=== PATIENT | male | born 1930 | race Caucasian/White ===

== ENCOUNTER → 2017-04-23 | Outpatient (CLI) | payer BC ==
[~2017-04-23] MED LIST: ADVIN50/60 INH; ALBUAER2 INH; CETI10TA10 PO; CLOP1TAB15 PO; CYAN10005 PO; DUTA1CAP3 PO; EPP3/2 IM; FLM4 PO; FRS/40 PO; MCR/50 PO; METR1GEL3 TOP; MONT1TAB3 PO; POTA10CA28 PO; PRED0.12 OPL; PRED10TA PO; RMNER16 PO; SODI5OIN4 OPR; TIOTCAP INH
== END | disposition home or self-care (01) ==
LOC: C.LAB1850 10:56
PROVIDERS: ATTEND Internal Medicine Pulmonary Disease
DX: J45.909 Unspecified asthma, uncomplicated (principal); J44.9 Chronic obstructive pulmonary disease, unspecified; R76.0 Raised antibody titer; R70.0 Elevated erythrocyte sedimentation rate

== ENCOUNTER → 2017-08-01 | Outpatient (CLI) | payer BC | END | disposition home or self-care (01) | LOC: C.LABFOXMH 08:42 | PROVIDERS: ATTEND Internal Medicine | DX: D47.2 Monoclonal gammopathy (principal) ==

== ENCOUNTER → 2017-09-16 | Outpatient (CLI) | payer BC ==
[~2017-09-16] MED LIST changes: -MCR/50 PO; +NITR50CA39 PO
== END | disposition home or self-care (01) ==
LOC: C.NEUR 10:19
PROVIDERS: ATTEND Internal Medicine
DX: R53.83 Other fatigue (principal); G47.10 Hypersomnia, unspecified; R06.83 Snoring

== ENCOUNTER → 2017-10-26 | Outpatient (CLI) | payer BC ==
[~2017-10-26] MED LIST changes: +CEFU1TAB35 PO; +DUTA0.5C PO; +DUTA1CAP17 PO; -DUTA1CAP3 PO; +ESCI1TAB6 PO; +METH-1305 PO; +ROPI0.25 PO; +SPRIN/30 INH; +VNTHFA/IN INH; +[UNRECOGNIZED DRUG - CODE] OPR
--- NOTE | 2017-10-27 05:03 | PAP/PSG TECHNICIAN REPORT ---
[facility] Form Builder Polysomnogram Report Study name: None Report date: 10/27/2017 Study date: 10/26/2017 Referring Physician: Jason Willis MD. Name: PUMA TODD Interpreting Physician: Tee Ventura M.D. Date of : 1930 Form Builder: RADHA Downey. Sex: Male Age: 87 StudyType: PSG Weight: 212 lbs Height: 87 years, Height 5' 9.5" Neck Circum: BMI: 30.85 Medications: METHENAMINE HIPPURATE 1GRAM, AVODART 0.5MG, LASIX 20MG, CYANOCOBALAMIN 1000MCG, ESCITALOPRAM 10MG, SPIRIVA 18MCG/ACT, MONTELUKAST SODIUM 10MG, CLOPIDOGREL 75MG, GALANTAMINE ER 16MG, ZYRTEC 10MG, ADVAIR DISK 500/50, POTASSIUM CL 10MEQ, SPIRIVA 18MCG/ACT, EPIPEN 0.3MG/0.3ML, VENTOLIN HFA 90MCG/ACT, ERI 128SOLUTION OPHTHALMIC Patient History Study started on room air with no ETCO2 monitoring in room #6. 87 yr old male here tonight for a diagnostic psg. He had a HST in August that was invalid. He has EDS and snoring. His and son stated that he has short term memory loss and gets confused. His ESS=12/21. His neck circ=16.25inches Parameters Monitored NPSG: E1-M2, E2-M1, Fp1-M2, Fp2-M1, F3-M2, F4-M2, F4-M1, C3-M2, C4-M2, C4-M1, O1-M2, O2-M2, O2-M1, T3-M2, T4-M1, P3-M2, P4-M1, CHIN1, CHIN2, HR, EKG, Legs, PFLOW, SNOR, FLOW, CFLOW, Tidal Volume, THOR, ABDO, SpO2, PLTH, CPRESS, ETCO2 Wave, ETCO2, pH Sleep Architecture Sleep Stages Time at Lights Off 9:55:54 PM STAGES Time (min.) TST (%) Time at Lights On 4:47:24 AM Wake 159.0 -- Total Recording Time (TRT) 411.50 min. N1 35.0 14 Total Sleep Period (TSP) 391.0 min. N2 207.0 82 Total Sleep Time (TST) 252.5min. N3 6.5 3 Awake Time 159.0 min. REM 4.0 2 Wake after Sleep Onset 152.5 min. Sleep Efficiency (SE) 61 % Sleep Onset Latency (JOSE) 6.5 min. Number of Stage 1 Shifts None Awakenings 39 Stage Changes 119 Number of REM periods 1 REM 4.0 2 REM Latency 387.0 min. NREM 248.5 98 Body Position Analysis Supine Right Left Side Prone Vertical Total Sleep Time (min.) 411.5 0.0 0.0 0.00 0.0 0.0 Total Sleep Time (%) 100% 0% 0% 0 0% N/A% Total Sleep Time REM (min.) 4.0 0.0 0.0 None 0.0 0.0 Total Sleep Time NREM (min.) 248.5 0.0 0.0 None 0.0 0.0 Intermittent Wake (min.) 159.0 0.0 0.0 None 0.0 0.0 Total Sleep Period (%) 100% None None None None None Arousals Myoclonus (PLM) * Events Count Index Events Count Index Spontaneous 14 3 Events Awake (PLMW) 326 123.0 Respiratory 2 1.2 Events Asleep w/ Arousal (PLMA) 17 4.0 PLM 13 4 Events Asleep w/o Arousal (PLMS) 625 148.5 Snoring 3 1 Total Asleep 642 152.6 Total 32 8 Total 968 141 Respiratory Analysis * CA OA MA CH H RERA Total Count 0 3 0 0 47 0 50 Index 0.0 0.7 0.0 0 11.2 0 11.9 Mean Duration 0.0 16.3 0.0 0.00 19.2 0.0 19.0 Longest Duration 0.0 19.9 0.0 0.00 0.0 0.0 40.2 Respiratory Event Summary Total Supine ~Supine Right Left Prone REM NREM Apneas Count 3 3 N/A N/A N/A N/A 0 3 Index 0.7 1 N/A N/A N/A N/A 0 1 Hypopneas (4% Desat) Count 47 47 N/A N/A N/A N/A 2 45 Index 11.2 11.2 N/A N/A N/A N/A 30.0 10.9 Apneas & All Hypopneas Count 50 50 N/A N/A N/A N/A 2 48 Index 11.9 12 N/A N/A N/A N/A 30.0 11.6 Respiratory Events (Stamping Mill Tender+All Hyp+RERA) Count 50 50 N/A N/A N/A N/A 2 48 Index 11.9 12 N/A N/A N/A N/A 30.0 11.6 Respiratory Related Arousal Count 2 50 N/A N/A N/A N/A 0 5 Index 1.2 1 N/A N/A N/A N/A 0 1 Snoring Analysis Supine Right Left Prone REM NREM Total Snore duration 5.6 min Snores count 231 N/A N/A N/A 2 229 231 Snore mean duration 1.4 Sec Snores index 55 N/A N/A N/A 30.0 55.3 54.9 TST with snoring (%) 2.2% Desaturation Event Summary: Minimum %SpO2 Event Count Mean/Min/Max Duration(sec.) Desaturation Index % Time In Bed > 90 49 28.6 / 9.0 / 59.3 65.6 11.4 86 - 90 103 25.7 / 0.0 / 58.0 19.2 81.5 81 - 85 2 10.1 / 5.8 / 14.5 4.3 7.2 76 - 80 0 N/A 0.0 0.0 71 - 75 0 N/A 0.0 0.0 66 - 70 0 N/A 0.0 0.0 61 - 65 0 N/A 0.0 0.0 56 - 60 0 N/A 0.0 0.0 51 - 55 0 N/A 0.0 0.0 < 50 0 N/A 0.0 0.0 Total REM NREM Awake <50% 0.0 min. 0.0 min. 0.0 min. 0.0 min. 51 - 60% 0.0 min. 0.0 min. 0.0 min. 0.0 min. 61 - 70% 0.0 min. 0.0 min. 0.0 min. 0.0 min. 71 - 80% 0.1 min. 0.0 min. 0.0 min. 0.1 min. 81 - 90% 349.5 min. 3.2 min. 240.0 min. 106.2 min. 91 - 100% 44.8 min. 0.8 min. 8.0 min. 36.1 min. Average 88 89 88 89 Minimum SpO2 75 82 82 75 Desaturation Event Index 16.8 60.0 19.1 12.8 # Desat. Events below 89% 107 4 77 26 Time(%) with Saturation below 89% 58.0 0.5 45.0 12.5 Time(min.) with Saturation below 89% 228.7 2.0 177.3 49.4 Time (mins) REM (mins) NREM (mins) % of TST SpO2 Below 90% 82 4 N78 87.6 SpO2 Below 88% 34 0 0 48 Heart Rate Analysis Min (bpm) Max (bpm) Average (bpm) Awake 35 127 67 NREM 38 93 66 REM 56 64 61 Overall 38 93 66 Supplemental O2 Values Minimum O2 level: None Value Start Time End Time Form Builder Comments slept in the left position. Cardiac arrhythmia and leg movements were noted, please see print outs. His legs seemed to move all night. No bruxism noted. Snoring was noted and scored as a 2 on a scale of 1 through 5. (0=no snoring, 5=snoring loud enough to be heard through a closed door or down the [address] way). He awoke to use the restroom once during the night. At that time he pulled most of the wires off his head and face and the study was ended at that time. He stated that he slept worse than when at home. The final report will be interpreted and signed by a sleep physician. The completed physician report will then be placed in the patient medical record. Therapy (cm H2O) 0 TIB (min.) 411.5 TST (min.) 252.5 Sleep Onset (min.) 6.5 REM Onset From Sleep (min.) 387.0 Sleep Efficiency % 61 Wakefulness (%) 39 Wakefulness (min.) 159.0 NREM 1 (%) 14 NREM 1 (min.) 35.0 NREM 2 (%) 82 NREM 2 (min.) 207.0 NREM 3 (%) 3 NREM 3 (min.) 6.5 REM (%) 2 REM (min.) 4.0 # Arousals 32 Arousal Index 8 # Snore 231 Snore Index 54.9 AHI 11.9 AHI Supine 12 AHI Non-Supine N/A NREM AHI 11.6 REM AHI 30.0 RDI 11.9 # Obstructive Apnea 3 # Central Apnea 0 # Mixed Apnea 0 # Hypopneas 47 RERAs 0 Total Respiratory Events 50 Time Below SpO2 89% (min.) 179.4 Mean NREM SpO2 (%) 88 Mean REM SpO2 (%) 89 Mean Sleep SpO2 (%) 88 Min NREM SpO2 (%) 82 Min REM SpO2 (%) 82 Position Supine (min.) 411.5 Position Non-supine (min.) 0.0 LM Index Sleep 152.6 LM Index NREM 153.6 LM Index REM 90.0 Mean Heart Rate (bpm) 66 Min Heart Rate (bpm) 38
--- NOTE | 2017-10-29 13:52 | POLYSOMNOGRAPH REPORT ---
CLINICAL DATA: A 87-year-old male with BMI of 30.[address] Willis for an in-lab sleep study. He had a home sleep apnea test which was technically invalid in August 2017. He does have excessive daytime sleepiness, snoring, confusion, and short-term memory loss. His [place] sleepiness score was elevated at 12/21. SLEEP ARCHITECTURE: Total sleep period was 391 minutes. Total sleep time was 252.5 minutes divided between 248.5 minutes of non-REM sleep and 4 minutes of REM sleep. Sleep onset latency was 6.5 minutes. REM latency was delayed at 387 minutes. Sleep efficiency was reduced at 61%. Wake after sleep onset was elevated at 152.5 minutes. Sleep consisted of stage N1 14%, stage N2 82%, stage N3 3%, and REM 2%. AROUSAL DATA: Thirty-two arousals were recorded for an index of 8 per hour. PLM DATA: Severely elevated limb movements during sleep were noted. There were 642 limb movements during sleep noted for an index of 152.6 per hour with an arousal index of 4 per hour. RESPIRATORY DATA: Mild sleep apnea was documented. The apnea/hypopnea index was 12. There were 3 obstructive apneic episodes. The longest duration of apnea was 20 seconds. There were 47 hypopneic episodes with a mean duration of 19.2 seconds. OXIMETRY DATA: Nocturnal hypoxemia was seen. Oxygen david was 82% during REM. The mean saturation was 88%. Time below 88% was 34 minutes. EKG: Heart rates ranged from 38-93 beats per minute. There were episodes of irregular heart rhythm seen, possibly atrial fibrillation intermittently. MIRROR INSPECTOR'S COMMENTS: The patient slept in the left position. He had leg movements almost the entire night. Snoring was mild, rated 2 on a scale of 1 through 5. The patient's sleep hypnogram showed very frequent awakenings through the night, not always correlated with respiratory events and almost continuous leg movements through the night. IMPRESSIONS: 1. Mild sleep apnea/hypopnea with an AHI of 12. 2. Nocturnal hypoxemia. 3. 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 4. Intermittent irregular rhythm, question atrial fibrillation. RECOMMENDATIONS: The patient may benefit from a repeat sleep study with CPAP and/or oxygen and possibly treatment of PLMD. MTDD
== END | disposition home or self-care (01) ==
LOC: C.NEUR 21:00
PROVIDERS: ATTEND Internal Medicine
DX: R06.83 Snoring (principal); G47.10 Hypersomnia, unspecified

== ENCOUNTER → 2017-12-07 | Outpatient (CLI) | payer BC ==
[~2017-12-07] MED LIST changes: -CEFU1TAB35 PO; -DUTA0.5C PO; -DUTA1CAP17 PO; +DUTA1CAP3 PO; -ESCI1TAB6 PO; -METH-1305 PO; -ROPI0.25 PO; -SPRIN/30 INH; -VNTHFA/IN INH; -[UNRECOGNIZED DRUG - CODE] OPR
--- NOTE | 2017-12-08 05:30 | PAP/PSG TECHNICIAN REPORT ---
[facility] Baker Doughnut Polysomnogram Report Study name: None Report date: 12/08/2017 Study date: 12/07/2017 Referring Physician: Jason Willis MD. Name: PUMA TODD Interpreting Physician: Tee Ventura M.D. Date of : 1930 Baker Doughnut: RADHA Downey. Sex: Male Age: 87 StudyType: PSG PAP Weight: 212 lbs Height: 87 years, Height 5' 9.5" Neck Circum: BMI: 30.85 Medications: Methenamine Hippurate 1gm, Avodart 0.5mg, Lasix 20mg, Cyanocobalamin 1000mcg, escitalopram 10mg, Spiriva 18 mcg/act, Montelukast Sodium 10mg, Clopidogrel 75mg, Galantamine Er 16mg, Zyrtec 10mg, Advair Disk 500/50, Potassium Chloride 10MEQ, Epipen 0.3mg/0.3ml, Ventolin HFA 90 mcg/act, Osman 128 Solution Ophthalmic Patient History Study started on room air with no 4 cwp of cpap in room #6. 87 yr old male here tonight for a new titration study. He had a diagnostic psg done here on 10/26/17 that had an AHI of 11.9 and showed PLMD. He stopped taking his PLMD medication 3 days ago because of an allergic reaction, according to his . His ESS=12/21. Neck circ=16.25inches. Parameters Monitored NPSG: E1-M2, E2-M1, Fp1-M2, Fp2-M1, F3-M2, F4-M2, F4-M1, C3-M2, C4-M2, C4-M1, O1-M2, O2-M2, O2-M1, T3-M2, T4-M1, P3-M2, P4-M1, CHIN1, CHIN2, HR, EKG, Legs, PFLOW, SNOR, FLOW, CFLOW, Tidal Volume, THOR, ABDO, SpO2, PLTH, CPRESS, ETCO2 Wave, ETCO2, pH Sleep Architecture Sleep Stages Time at Lights Off 9:49:34 PM STAGES Time (min.) TST (%) Time at Lights On 4:59:04 AM Wake 65.0 -- Total Recording Time (TRT) 431.00 min. N1 12.5 3 Total Sleep Period (TSP) 422.5 min. N2 200.5 55 Total Sleep Time (TST) 364.5min. N3 47.0 13 Awake Time 66.5 min. REM 104.5 29 Wake after Sleep Onset 58.0 min. Sleep Efficiency (SE) 85 % Sleep Onset Latency (JOSE) 7.0 min. Number of Stage 1 Shifts None Awakenings 18 Stage Changes 70 Number of REM periods 2 REM 104.5 29 REM Latency 84.5 min. NREM 260.0 71 Body Position Analysis Supine Right Left Side Prone Vertical Total Sleep Time (min.) 18.6 0.0 358.3 358.26 0.0 0.0 Total Sleep Time (%) 2% 0% 98% 98 0% N/A% Total Sleep Time REM (min.) 0.0 0.0 104.5 None 0.0 0.0 Total Sleep Time NREM (min.) 6.2 0.0 253.8 None 0.0 0.0 Intermittent Wake (min.) 12.3 0.0 52.7 None 0.0 0.0 Total Sleep Period (%) 4% None None None None None Arousals Myoclonus (PLM) * Events Count Index Events Count Index Spontaneous 7 1 Events Awake (PLMW) 95 87.7 Respiratory 7 1.2 Events Asleep w/ Arousal (PLMA) 13 2.1 PLM 13 2 Events Asleep w/o Arousal (PLMS) 435 71.6 Snoring 2 0 Total Asleep 448 73.7 Total 29 5 Total 543 76 Respiratory Analysis * CA OA MA CH H RERA Total Count 10 2 0 0 23 0 35 Index 1.6 0.3 0.0 0 3.8 0 5.8 Mean Duration 15.4 14.8 0.0 0.00 21.9 0.0 19.7 Longest Duration 22.6 15.7 0.0 0.00 0.0 0.0 33.6 Respiratory Event Summary Total Supine ~Supine Right Left Prone REM NREM Apneas Count 12 8 4 N/A 4 N/A 2 10 Index 2.0 77 1 N/A 0.7 N/A 1 2 Hypopneas (4% Desat) Count 23 2 21 N/A 21 N/A 0 23 Index 3.8 19.2 4 N/A 3.5 N/A 0.0 5.3 Apneas & All Hypopneas Count 35 10 25 N/A 25 N/A 2 33 Index 5.8 96 4 N/A 4 N/A 1.1 7.6 Respiratory Events (Behavioral Assistant+All Hyp+RERA) Count 35 10 25 N/A 25 N/A 2 33 Index 5.8 96 4 N/A 4.2 N/A 1.1 7.6 Respiratory Related Arousal Count 7 10 4 N/A 4 N/A 0 7 Index 1.2 29 1 N/A 1 N/A 0 2 Snoring Analysis Supine Right Left Prone REM NREM Total Snore duration 3.5 min Snores count 0 N/A 154 N/A 42 112 154 Snore mean duration 1.4 Sec Snores index 0 N/A 26 N/A 24.1 25.8 25.3 TST with snoring (%) 1.0% Desaturation Event Summary: Minimum %SpO2 Event Count Mean/Min/Max Duration(sec.) Desaturation Index % Time In Bed > 90 65 26.4 / 7.0 / 60.0 21.0 43.6 86 - 90 14 19.5 / 0.3 / 55.8 3.6 55.1 81 - 85 0 N/A 0.0 1.2 76 - 80 1 10.0 / 10.0 / 10.0 360.0 0.0 71 - 75 0 N/A 0.0 0.0 66 - 70 0 N/A 0.0 0.0 61 - 65 0 N/A 0.0 0.0 56 - 60 0 N/A 0.0 0.0 51 - 55 0 N/A 0.0 0.0 < 50 0 N/A 0.0 0.0 Total REM NREM Awake <50% 0.0 min. 0.0 min. 0.0 min. 0.0 min. 51 - 60% 0.0 min. 0.0 min. 0.0 min. 0.0 min. 61 - 70% 0.0 min. 0.0 min. 0.0 min. 0.0 min. 71 - 80% 0.2 min. 0.0 min. 0.0 min. 0.2 min. 81 - 90% 240.5 min. 79.3 min. 145.4 min. 15.8 min. 91 - 100% 186.0 min. 25.1 min. 114.0 min. 47.0 min. Average 90 89 90 92 Minimum SpO2 77 84 77 77 Desaturation Event Index 9.8 2.9 9.0 24.9 # Desat. Events below 89% 25 3 12 10 Time(%) with Saturation below 89% 13.9 6.9 6.1 0.9 Time(min.) with Saturation below 89% 59.4 29.6 26.0 3.8 Time (mins) REM (mins) NREM (mins) % of TST SpO2 Below 90% 34 4 N30 34.5 SpO2 Below 88% 6 0 0 6 Heart Rate Analysis Min (bpm) Max (bpm) Average (bpm) Awake 54 250 63 NREM 53 127 64 REM 56 80 68 Overall 53 127 65 Supplemental O2 Values Minimum O2 level: None Value Start Time End Time Baker Doughnut Comments Mr. Todd slept in the supine and left position. Cardiac arrhythmia and PLM's noted, please see print outs. No bruxism noted. CPAP was initiated at +4 CMH2O and up-titrated to a level of + 35TRA4S. A large Quattro Air full face mask by [employer] was used during titration. He did not use the restroom during the night. He stated that he slept a little worse than when at home. He did roll on his back during the study and had many central apneas. He did not have supine sleep in his previous study. An optimal pressure was not obtained. The final report will be interpreted and signed by a sleep physician. The completed physician report will then be placed in the patient medical record. Therapy Event: Therapy (cm H20) 0 4 5 6 7 8 9 10 Total Time at Pressure (min.) 0.4 45.8 107.7 80.7 113.2 45.0 18.6 18.1 TST at Pressure (min.) 0.0 35.3 105.7 73.7 108.2 15.2 9.4 17.1 # Periods 1 1 1 1 1 1 1 1 Sleep Onset (min.) N/A 6.6 0.0 0.0 0.0 0.0 0.6 0.0 REM Onset (min.) N/A N/A 45.2 0.0 N/A N/A N/A N/A Sleep Efficiency % 0 76 98 91 95 33 50 94 Wakefulness (%) 100.0 23.1 1.9 8.7 4.4 66.3 49.2 5.5 Wakefulness (min.) 0.4 10.6 2.0 7.0 5.0 29.9 9.1 1.0 NREM 1 (%) 0.0 4.4 1.9 0.0 0.9 5.6 13.0 14.3 NREM 1 (min.) 0.0 2.0 2.0 0.0 1.0 2.5 2.4 2.6 NREM 2 (%) 0.0 64.3 24.1 37.2 71.4 28.1 37.7 80.2 NREM 2 (min.) 0.0 29.5 26.0 30.0 80.8 12.7 7.0 14.5 NREM 3 (%) 0.0 8.2 14.6 1.4 23.3 0.0 0.0 0.0 NREM 3 (min.) 0.0 3.8 15.7 1.1 26.4 0.0 0.0 0.0 REM (%) 0.0 0.0 57.5 52.8 0.0 0.0 0.0 0.0 REM (min.) 0.0 0.0 61.9 42.6 0.0 0.0 0.0 0.0 # Arousals N/A 7 6 0 2 5 5 4 Arousal Index N/A 11.9 3.4 0.0 1.1 19.8 31.8 14.1 # Snore N/A 56 76 6 2 0 3 11 Snore Index N/A 95.3 43.2 4.9 1.1 0.0 19.1 38.6 AHI N/A 0.0 2.3 4.1 3.3 43.5 44.6 7.0 AHI Supine N/A N/A N/A N/A N/A 104.6 0.0 N/A AHI Non-Supine N/A 0.0 2.3 4.1 3.3 6.4 47.1 7.0 NREM AHI N/A 0.0 2.7 9.6 3.3 43.5 44.6 7.0 REM AHI N/A N/A 1.9 0.0 N/A N/A N/A N/A RDI N/A 0.0 2.3 4.1 3.3 43.5 44.6 7.0 # Obstructive N/A 0 2 0 0 0 0 0 # Central Ap N/A 0 0 0 0 9 1 0 # Mixed N/A 0 0 0 0 0 0 0 # Hypopneas N/A 0 2 5 6 2 6 2 RERAS N/A 0 0 0 0 0 0 0 Total Respiratory Events N/A 0 4 5 6 11 7 2 Time Below SpO2 89.00% (min.) 0.0 12.5 36.9 0.5 3.6 0.3 1.8 0.0 Mean NREM SpO2 (%) N/A 89 90 91 90 91 91 92 Mean REM SpO2 (%) N/A N/A 88 90 N/A N/A N/A N/A Mean Sleep SpO2 (%) N/A 89 89 91 90 91 91 92 Min NREM SpO2 (%) N/A 87 88 89 77 86 84 90 Min REM SpO2 (%) N/A N/A 84 86 N/A N/A N/A N/A Position Supine (min.) 0.0 0.0 0.0 0.0 0.0 5.7 0.5 0.0 Position Non-supine (min.) 0.0 35.3 105.7 73.7 108.2 9.4 8.9 17.1 LM Index Sleep N/A 28.9 17.6 7.3 166.9 7.9 210.2 193.2 LM Index NREM N/A 28.9 19.2 3.9 166.9 7.9 210.2 193.2 LM Index REM N/A N/A 16.5 9.9 N/A N/A N/A N/A Mean Heart Rate (bpm) N/A 67 69 65 64 59 57 55 Min Heart Rate (bpm) N/A 59 59 56 55 54 53 53
--- NOTE | 2017-12-09 19:11 | POLYSOMNOGRAPH REPORT ---
CLINICAL DATA: An 87-year-old male with BMI of 30.85, referred by Dr. Willis for a CPAP titration study. He had a diagnostic PSG in late 09/2017 which showed mild sleep apnea with an AHI of 11.9 with PLMD. He was put on medication for PLMD but stopped it several days ago because of an allergic reaction. His [place] Sleepiness score is 12/21. SLEEP ARCHITECTURE: Total sleep period was 422.5 minutes. Total sleep time was 364.5 minutes divided between 260 minutes of non-REM sleep and 104.5 minutes of REM sleep. Sleep latency was 7 minutes. REM latency was 84.5 minutes. Sleep efficiency was 85%. Wake after sleep onset was 58 minutes. Sleep consisted of stage N1 3%, stage N2 55%, stage N3 13% and REM 29%. AROUSAL DATA: 29 arousals recorded for an index of 5 per hour. PERIODIC LIMB MOVEMENT DATA: Severe PLMD was noted. There were 448 limb movements during sleep noted for an index of 73.7 per hour with arousal index of 2.1 per hour. RESPIRATORY DATA: The AHI was 5.8. There were 10 central and 2 obstructive apneic episodes. The longest duration of apnea was 22.6 seconds. There were 23 hypopneic episodes with mean duration of 21.9 seconds. OXIMETRY DATA: Nocturnal hypoxemia was seen. Oxygen david was 77%. Mean saturation was 90%. Time below 88% was 6 minutes. EKG: Heart rates ranged from 53-127 beats per minute. PACs and PVCs were noted. SYRUP FILTERER'S COMMENTS AND TREATMENT SUMMARY: The patient slept in supine and left positions. Frequent PLMs were noted. The patient used a large Quattro Air full facemask by [employer]. He was titrated up to his final pressure setting of 10 cm water pressure. At that setting, he slept for 17 minutes with an AHI of 7. He did roll on his back and had significant central apneic episode when that occurred.An optimal pressure was not totally obtained, although he was improved on 10 cm of water pressure CPAP. IMPRESSION: Obstructive sleep apnea, improved on CPAP 10 cm water pressure, with significant periodic limb movement disorder. RECOMMENDATIONS: The patient could be started on the above-noted treatment regimen and seen back in followup within 90 days to document efficacy and compliance. [facility]ITALMario
== END | disposition home or self-care (01) ==
LOC: C.NEUR 20:00
PROVIDERS: ATTEND Internal Medicine
DX: G47.30 Sleep apnea, unspecified (principal)

== ENCOUNTER → 2017-12-12 | Outpatient (CLI) | payer BC | END | disposition home or self-care (01) | LOC: C.LAB1850 11:20 | PROVIDERS: ATTEND Internal Medicine Pulmonary Disease | DX: R76.8 Other specified abnormal immunological findings in serum (principal) ==

== ENCOUNTER → 2017-12-19 | Outpatient (CLI) | payer BC | END | disposition home or self-care (01) | LOC: C.LABFOXMH 13:08 | PROVIDERS: ATTEND Internal Medicine | DX: N30.91 Cystitis, unspecified with hematuria (principal) ==

== ENCOUNTER → 2018-01-10 | Outpatient (CLI) | payer BC | LOC: C.LABFOXMH 10:36 | PROVIDERS: ATTEND Nurse Practitioner Family | DX: R35.0 Frequency of micturition (principal); N30.91 Cystitis, unspecified with hematuria ==

== ENCOUNTER 2018-05-04 15:30 | Inpatient (IN) | payer BC, OTHER ==
[~2018-05-04] VITALS: Ht 175.3 cm; Wt 97.4 kg
[~2018-05-04 15:30] MED LIST changes: +DUTA1CAP17 PO; -DUTA1CAP3 PO
[2018-05-04] MEDS ORDERED: SODIUM CHLORIDE 0.9% 1000ML 1,000 ML IV ONE (15:31)
[2018-05-04] MEDS ORDERED: ACETAMINOPHEN 500 MG TAB PO STA (15:33)
--- NOTE | 2018-05-04 15:47 | EMERGENCY ROOM VISIT NOTE ---
History Report prepared by Zo: Ivonne Salas Under the Supervision of: Dr. Matt Hi D.O. First contact with patient: 15:30 Stated Complaint: DIARRHEA/SLUGGISH / [place] History of Present Illness The patient is a 87 year old male who presents to the Emergency Room with complaints of generalized weakness beginning this morning. The patient had a large episode of diarrhea this morning. Per , after the episode of diarrhea , the patient slept for about 3 hours. She reports after he woke up the patient was fatigued and not as responsive as he typically is. The patient had a temperature of 100.4 degrees this afternoon. The patient was given Imodium but no Tylenol by his . The patient denies any abdominal pain. Per , the patient has not had any recent falls. The patient's denies any black or bloody stool. EMS reports the patient was hypotensive and was given one liter of fluids in route to the hospital. The patient lives at [facility] independent living with his . The patient has a history of dementia. Source of History: patient, spouse/significant other, EMS Onset: this morning Position: other (generalized) Quality: other (weakness) Timing: worsening Associated Symptoms: + diarrhea, + weakness Review of Systems See HPI for pertinent positives & negatives. A total of 10 systems reviewed and were otherwise negative. Past Medical & Surgical Medical Problems: (1) Allergic rhinitis (2) Asthma (3) Bilateral inguinal hernia repair (4) COPD (chronic obstructive pulmonary disease) (5) Duodenal ulcer (6) Gallstone (7) Gammopathy (8) Spinal stenosis of lumbar region (9) Tonsillectomy (10) Vasectomy Family History Diabetes mellitus Social History Smoking Status: Former Smoker Alcohol Use: occasionally Drug Use: none Marital Status: Housing Status: assisted living Occupation Status: retired Current/Historical Medications Scheduled Albuterol Hfa (Ventolin Hfa), 2-4 PUFFS INH Q6H Cetirizine Hcl (Zyrtec), 10 MG PO DAILY Clopidogrel (Plavix), 75 MG PO DAILY Cyanocobalamin (Vitamin B-12), 1,000 MCG PO DAILY Dutasteride (Avodart), 0.5 MG PO DAILY Epinephrine (Epipen), 0.3 MG IM UD Escitalopram Oxalate (Lexapro), 5 MG PO DAILY Fluticasone Prop/Salmeterol (Advair Diskus 500/50 60 Dose), 1 PUFF INH BID Furosemide (Lasix), 20 MG PO DAILY Galantamine Hydrobromide (Razadyne Ext Rel), 16 MG PO DAILY Methenamine Hippurate (Methenamine Hippurate), 1 GM PO DAILY Montelukast Sodium (Singulair), 10 MG PO DAILY Potassium Chloride (Micro-K Ext Rel), 10 MEQ PO DAILY Ropinirole (Requip), 0.25 MG PO HS Sodium Chloride Hypertonic (Sodium Chloride Opthalmic), 1 DROP OPR DAILY Tiotropium Crandall (Spiriva Handihaler), 1 CAP INH DAILY Allergies Coded Allergies: Hydroxyzine (Verified Allergy, Unknown, swelling, 05/04/18) Midazolam (Verified Allergy, Unknown, apneic, 05/04/18) Paroxetine (Verified Allergy, Unknown, unknown, 05/04/18) Sulfa Drugs (Verified Allergy, Unknown, UNKNOWN, 05/04/18) Lorazepam (Verified Adverse Reaction, Unknown, flushes, 05/04/18) Naproxen (Verified Adverse Reaction, Unknown, GI distress, 05/04/18) Physical Exam Vital Signs Date Time Temp Pulse Resp B/P (MAP) Pulse Ox O2 Delivery O2 Flow Rate FiO2 05/04/18 18:01 75 18 109/59 100 Nasal Cannula 4.0 05/04/18 17:50 76 20 115/66 100 Nasal Cannula 4.0 05/04/18 17:40 78 18 112/64 100 Nasal Cannula 4.0 05/04/18 17:30 75 20 108/67 100 Nasal Cannula 4.0 05/04/18 17:24 76 20 88/47 100 Nasal Cannula 4.0 05/04/18 17:10 37.3 76 20 89/46 99 Nasal Cannula 4.0 05/04/18 17:02 76 20 85/54 98 Nasal Cannula 4.0 05/04/18 16:40 75 24 62/50 100 Nasal Cannula 4.0 05/04/18 16:16 84 20 87/46 97 Nasal Cannula 4.0 05/04/18 16:00 84 22 96/48 93 Nasal Cannula 4.0 05/04/18 15:58 85 05/04/18 15:50 82 16 91/52 99 Room Air 05/04/18 15:45 100 Nasal Cannula 4.0 05/04/18 15:45 91 14 74/38 96 Nasal Cannula 4.0 05/04/18 15:39 85 18 79/44 100 Nasal Cannula 4.0 05/04/18 15:36 37.5 87 20 83/35 87 Room Air Physical Exam GENERAL: Patient is listless, slow to respond to questions but follows commands. EYES: The conjunctivae are clear. The pupils are round and reactive. EARS, NOSE, MOUTH AND THROAT: The nose is without any evidence of any deformity. Mucous membranes are dry tongue is midline NECK: The neck is nontender and supple. RESPIRATORY: Lung sounds diminished in left lung, mild tachypnea. CARDIOVASCULAR: Irregular rhythm noted to auscultation, no definite murmur. GASTROINTESTINAL: Moderately distended but soft no guarding or rigidity. MUSCULOSKELETAL/EXTREMITIES: There is no evidence of gross deformity full range of motion is noted in the hips and shoulders SKIN: There is no obvious evidence of any rash. There are no petechiae, pallor or cyanosis noted. Pedal edema bilaterally. NEUROLOGIC: Patient is awake alert and oriented to person, place, but not time. Strength is symmetric. Medical Decision & Procedures ER Provider Diagnostic Interpretation: Radiology results as stated below per my review and radiologist interpretation: CT SCAN OF THE ABDOMEN AND PELVIS WITHOUT CONTRAST CLINICAL HISTORY: diarrhea COMPARISON STUDY: December 2015 TECHNIQUE: CT scan of the abdomen and pelvis was performed from the lung bases to the proximal femurs. Images are reviewed in the axial, sagittal, and coronal planes. IV contrast was not administered for this examination. A dose lowering technique was utilized adhering to the principles of ALARA. CT DOSE: 824.09 mGy.cm FINDINGS: Lower chest: The heart is enlarged. There is basilar interstitial thickening with a subpleural predominance. Underlying interstitial lung disease is suspected. Liver: The unenhanced liver is normal in size, contour, and attenuation. There is no intrahepatic biliary ductal dilatation. Gallbladder: Cholelithiasis Spleen: Normal in size and attenuation. Pancreas: There is a dominant pancreatic atrophy. No masses are visualized. Adrenal glands: Unremarkable. Kidneys: There is bilateral perinephric stranding. There is persistent dilatation left renal pelvis and a pattern consistent with a chronic UPJ obstruction. No renal or ureteral calculi are visualized. Bowel: There are no transition zones indicate bowel obstruction. There is colonic diverticulosis. There are no acute peridiverticular inflammatory changes. The appendix is not visualized with certainty Peritoneum: There is no intraperitoneal free air or abdominal ascites. Vasculature: There is mild aneurysmal dilatation of the infrarenal abdominal aorta which measures 31 mm Adenopathy: None. Pelvic viscera: There is an indwelling Kirby catheter. There is bladder wall thickening. There is prostamegaly. There is a fat-containing left inguinal hernia. Skeletal structures: There are multilevel spondylitic changes. There is gas present within the left extradural space at the L3 level likely on a discogenic basis. There is multilevel spinal stenosis. IMPRESSION: 1. No evidence of bowel obstruction. No evidence of free air 2. Diverticulosis. No evidence of acute diverticulitis 3. Cholelithiasis 4. Chronic left UPJ obstruction 5. Prostamegaly with bladder wall thickening 6. Multilevel spondylitic changes within the spine 7. 31 mm infrarenal abdominal aortic aneurysm 8. Interstitial lung disease Electronically signed by: Brando Dugan M.D. CT HEAD WITHOUT CONTRAST (CT) CLINICAL HISTORY: confusion CHANGE IN MENTAL STATUS COMPARISON STUDY: MRI the brain performed February 2013 TECHNIQUE: Axial CT of the brain is performed from the vertex to the skull base. IV contrast was not administered for this examination. A dose lowering technique was utilized adhering to the principles of ALARA. CT DOSE: 614.27 mGy.cm FINDINGS: No intra or extra-axial mass lesions are visualized. There is no CT evidence of acute cortical infarction. There is no evidence of midline shift. There is no acute hemorrhage. No calvarial fractures are visualized. There are minor white matter hypodensities likely on a small vessel basis. There is no evidence of pathologic ventricular dilatation. There is mild maxillary and ethmoid sinus mucosal thickening. There is a stable subcutaneous nodule within the right occipital scalp measuring 2 cm. IMPRESSION: No acute intracranial findings Electronically signed by: Brando Dugan M.D. CHEST ONE VIEW PORTABLE CLINICAL HISTORY: Sepsis COMPARISON STUDY: 09/19/2016 FINDINGS: The heart is enlarged. There is mild elevation of the interstitium, likely secondary to mild congestive failure/fluid overload. A bilateral interstitial inflammatory process could appear similar There are no pleural effusions. There is no lobar consolidation.[ IMPRESSION: Cardiomegaly and elevation of the interstitium. While likely secondary to mild congestive failure, an interstitial inflammatory process could appear similar Electronically signed by: Brando Dugan M.D. Laboratory Results 05/04/18 15:50 Red Blood Count 4.08, Mean Corpuscular Volume 97.1, Mean Corpuscular Hemoglobin 31.6, Mean Corpuscular Hemoglobin Concent 32.6, Mean Platelet Volume 10.0, Neutrophils (%) (Auto) 95.2, Lymphocytes (%) (Auto) 2.9, Monocytes (%) (Auto) 1.0, Eosinophils (%) (Auto) 0.2, Basophils (%) (Auto) 0.2, Neutrophils # (Auto) 15.55, Lymphocytes # (Auto) 0.47, Monocytes # (Auto) 0.17, Eosinophils # (Auto) 0.04, Basophils # (Auto) 0.03 05/04/18 15:50 Test 05/04/18 15:50 05/04/18 15:51 05/04/18 16:01 05/04/18 16:10 White Blood Count 16.34 K/uL (4.8-10.8) Red Blood Count 4.08 M/uL (4.7-6.1) Hemoglobin 12.9 g/dL (14.0-18.0) Hematocrit 39.6 % (42-52) Mean Corpuscular Volume 97.1 fL (80-100) Mean Corpuscular Hemoglobin 31.6 pg (25-34) Mean Corpuscular Hemoglobin Concent 32.6 g/dl (32-36) Platelet Count 203 K/uL (130-400) Mean Platelet Volume 10.0 fL (7.4-10.4) Neutrophils (%) (Auto) 95.2 % Lymphocytes (%) (Auto) 2.9 % Monocytes (%) (Auto) 1.0 % Eosinophils (%) (Auto) 0.2 % Basophils (%) (Auto) 0.2 % Neutrophils # (Auto) 15.55 K/uL (1.4-6.5) Lymphocytes # (Auto) 0.47 K/uL (1.2-3.4) Monocytes # (Auto) 0.17 K/uL (0.11-0.59) Eosinophils # (Auto) 0.04 K/uL (0-0.5) Basophils # (Auto) 0.03 K/uL (0-0.2) RDW Standard Deviation 52.7 fL (36.4-46.3) RDW Coefficient of Variation 14.8 % (11.5-14.5) Immature Granulocyte % (Auto) 0.5 % Immature Granulocyte # (Auto) 0.08 K/uL (0.00-0.02) Erythrocyte Sedimentation Rate 39 mm/hr (0-14) Prothrombin Time 11.6 SECONDS (9.0-12.0) Prothromb Time International Ratio 1.1 (0.9-1.1) Activated Partial Thromboplast Time 25.3 SECONDS (21.0-31.0) Partial Thromboplastin Ratio 1.0 Anion Gap 10.0 mmol/L (3-11) Est Creatinine Clear Calc Drug Dose 34.9 ml/min Estimated GFR () 41.7 Estimated GFR (Non- 36.0 BUN/Creatinine Ratio 16.3 (10-20) Calcium Level 7.7 mg/dl (8.5-10.1) Phosphorus Level 2.3 mg/dl (2.5-4.9) Magnesium Level 1.6 mg/dl (1.8-2.4) Total Bilirubin 0.7 mg/dl (0.2-1) Aspartate Amino Transf (AST/SGOT) 15 U/L (15-37) Alanine Aminotransferase (ALT/SGPT) 16 U/L (12-78) Alkaline Phosphatase 67 U/L (45-117) Total Creatine Kinase 100 U/L (39-308) Creatine Kinase MB 1.2 ng/ml (0.5-3.6) Creatine Kinase MB Ratio 1.2 (0-3.0) Troponin I 0.369 ng/ml (0-0.045) C-Reactive Protein 2.44 mg/dl (0-0.29) Pro-B-Type Natriuretic Peptide 2487 pg/ml (0-1800) Total Protein 6.0 gm/dl (6.4-8.2) Albumin 2.4 gm/dl (3.4-5.0) Globulin 3.6 gm/dl (2.5-4.0) Albumin/Globulin Ratio 0.7 (0.9-2) Lipase 50 U/L (73-393) Bedside Glucose 78 mg/dl (70-99) Bedside Lactic Acid Venous 2.37 mmol/L (0.90-1.70) Urine Color YELLOW Urine Appearance CLOUDY (CLEAR) Urine pH 5.0 (4.5-7.5) Urine Specific [place] 1.012 (1.000-1.030) Urine Protein NEG (NEG) Urine Glucose (UA) NEG (NEG) Urine Ketones NEG (NEG) Urine Occult Blood 2+ (NEG) Urine Nitrite POS (NEG) Urine Bilirubin NEG (NEG) Urine Urobilinogen NEG (NEG) Urine Leukocyte Esterase LARGE (NEG) Urine WBC (Auto) >30 /hpf (0-5) Urine RBC (Auto) 0-4 /hpf (0-4) Urine Hyaline Casts (Auto) 1-5 /lpf (0-5) Urine Epithelial Cells (Auto) 0-5 /lpf (0-5) Urine Bacteria (Auto) 2+ (NEG) Test 05/04/18 16:47 Venous Blood pH 7.29 (7.36-7.41) Venous Blood Partial Pressure CO2 50 mmHg (38.0-50.0) Venous Blood Partial Pressure O2 35 mmHg Venous Blood HCO3 24 mmol/L Venous Blood Oxygen Saturation 61.7 % Venous Blood Base Excess -3.3 mEq/L Laboratory results per my review. Medications Administered Medications (Trade) Dose Ordered Sig/Bob Route Start Time Stop Time Status Last Admin Dose Admin Sodium Chloride 1,000 ml @ 999 mls/hr Q1H1M ONCE IV 05/04/18 15:31 05/04/18 16:31 DC 05/04/18 15:45 999 MLS/HR Acetaminophen (Tylenol Tab) 1,000 mg NOW STAT PO 05/04/18 15:33 05/04/18 15:34 DC 05/04/18 16:14 1,000 MG Levofloxacin (Levaquin / D5W) 750 mg NOW STAT IV 05/04/18 16:42 05/04/18 16:44 DC 05/04/18 16:50 750 MG Sodium Chloride 1,000 ml @ 999 mls/hr Q1H1M STAT IV 05/04/18 16:42 05/04/18 17:42 DC 05/04/18 16:59 999 MLS/HR Norepinephrine Bitartrate 8 mg/ Dextrose 508 ml @ 0 mls/hr Q0M STAT IV 05/04/18 16:42 05/04/18 16:44 DC 05/04/18 16:58 10.2 MLS/HR Magnesium Sulfate (Magnesium Sulfate 1gm / D5W) 2 gm NOW STAT IV 05/04/18 16:43 05/04/18 16:44 DC 05/04/18 16:52 2 GM Piperacillin Sod/ Tazobactam Sod (Zosyn Iv) 4.5 gm TODAY@1800 IV 05/04/18 18:00 05/14/18 17:59 05/04/18 17:45 4.5 GM Procedure Central Venous Catheter Indication: sepsis Catheter type: triple lumen Location: right femoral vein Verbal consent was obtained after the risks and benefits were explained, including but not limited to pneumothorax, hemothorax, vessel injury, bleeding, scarring, infection, pain, and bone/joint/nerve damage. At this time, the risks of the procedure are less than the risks of NOT performing the procedure. A time out was taken and the correct patient and site identified. The patient was placed in the supine position and the skin was prepped in the standard fashion with chlorhexidine and full sterile drapes applied. The proper landmarks were identified with ultrasound, anesthetized with 1% lidocaine without epinephrine, and the needle was inserted through the skin in the standard fashion. The needle was carefully advanced into blood vessel lumen under ultrasound guidance. The guidewire was placed uneventfully. The vessel is dilated and the catheter was placed. It was sutured into position. There was good blood return from all ports. The patient tolerated the procedure well and there were no complications. ECG Per My Interpretation Indication: weakness Rate (beats per minute): 84 Rhythm: normal sinus Findings: no ectopy, other (no actute ST segment, low voltage throughout) Comparison ECG Date: 01/02/16 Change: no significant change ED Course 1530: The patient was evaluated in room C12B. A complete history and physical examination were performed. 1531: Ordered NSS 1,000 ml @ 999 mls/hr IV. 1533: Ordered Acetaminophen 1000 mg PO. 1642: Ordered Norepinephrine Bitartrate 8 mg/Dextrose 508 ml @ 0 mls/hrs Protocol IV, NSS 1,000 ml @ 999 mls/hr IV, Levofloxacin 750 mg IV. 1643: Ordered Magnesium Sulfate 2 gm IV. 1644: I updated the patient and his on his test results. 1702: Central line was placed. See procedure note. The patient is agreeable to the treatment plan. 1717: I discussed the patient's case with Dr. Garcia. The patient will be evaluated for further management. 175: I discussed the patient's case with Dr. Purvis-Rack Maker. We reviewed the patient's case and he is available immediately if the patient's status decompensates. He recommends continued resuscitation for sepsis. 1800: Ordered Piperacillin Sod/Tazobactam Sod 4.5 gm/Dextrose 120 ml @ 200 mls/ hr IV. Medical Decision Differential diagnosis: Etiologies such as viral syndrome, otitis, pharyngitis, pneumonia, influenza, meningitis, urinary tract infection, sepsis, bacteremia, as well as others were entertained. Nursing notes reviewed. Additional history is obtained from the prehospital personnel. Additional history is obtained from the significant other. The patient is an 87-year-old male who presented to the emergency department for an evaluation of altered mental status and generalized weakness. The patient was found to have hypotension. The patient was treated initially with IV fluids. I do feel his underlying condition is consistent with sepsis from a urinary source. For this reason IV antibiotics were also given. I discussed patient's laboratory and radiographic studies with his significant other. I also discussed this case with the on-call [facility]ist. The patient had a central line placed for pressor treatment. I also discussed his case with the on-call slab miller operator. Patient was reevaluated multiple times. I discussed further treatment with the patient's significant other. Medication Reconcilliation Current Medication List: was personally reviewed by me Blood Pressure Screening Patient's blood pressure: Low blood pressure Consults Time Called: 1710 Consulting Physician: Dr. Garcia Returned Call: [phone] I discussed the patient's case with Dr. Garcia. The patient will be evaluated for further management. Additional Consults: Time Called: 1750 Consulted Physician: Dr. Purvis-Rack Maker Returned Call: 175 Additional Comments: I discussed the patient's case with Dr. Purvis-Rack Maker. We reviewed the patient's case and he is available immediately if the patient's status decompensates. He recommends continued resuscitation for sepsis. Impression Primary Impression: Sepsis Additional Impressions: UTI (urinary tract infection) Hypotension Altered mental status Critical Care I have personally spent greater than 45 minutes of critical care time in the direct management of this patient. This includes bedside care, interpretation of diagnostic studies, and testing, discussion with consultants, patient, and family members, and other required patient management activities. This 45 minutes is in excess of all separately billable procedures. Scribe Attestation The scribe's documentation has been prepared under my direction and personally reviewed by me in its entirety. I confirm that the note above accurately reflects all work, treatment, procedures, and medical decision making performed by me. Departure Information Dispostion Being Evaluated By Hospitalist Stewart Garner (PCP) Problem Qualifiers Primary Impression: Sepsis Sepsis type: sepsis due to unspecified organism Qualified Codes: A41.9 - Sepsis, unspecified organism Additional Impressions: UTI (urinary tract infection) Urinary tract infection type: site unspecified Hematuria presence: without hematuria Qualified Codes: N39.0 - Urinary tract infection, site not specified Hypotension Hypotension type: unspecified hypotension type Qualified Codes: I95.9 - Hypotension, unspecified Altered mental status Altered mental status type: unspecified Qualified Codes: R41.82 - Altered mental status, unspecified
--- NOTE | 2018-05-04 15:58 | DIAGNOSTIC IMAGING REPORT ---
CHEST ONE VIEW PORTABLE CLINICAL HISTORY: Sepsis COMPARISON STUDY: 09/19/2016 FINDINGS: The heart is enlarged. There is mild elevation of the interstitium, likely secondary to mild congestive failure/fluid overload. A bilateral interstitial inflammatory process could appear similar There are no pleural effusions. There is no lobar consolidation.[ IMPRESSION: Cardiomegaly and elevation of the interstitium. While likely secondary to mild congestive failure, an interstitial inflammatory process could appear similar Electronically signed by: Brando Dugan M.D. 05/04/2018 3:57 PM Dictated Date/Time: 05/04/2018 3:56 PM
[2018-05-04 16:18] LABS: HEMATOCRIT 39.6 % (42-52); HEMOGLOBIN 12.9 g/dL (14.0-18.0); MEAN CELL VOLUME 97.1 fL (80-100); MEAN CORPUSCULAR HEMOGLOBIN 31.6 pg (25-34); MEAN CORPUSCULAR HGB CONC 32.6 g/dl (32-36); PLATELET COUNT 203 K/uL (130-400); RED CELL DISTRIBUTION WIDTH CV 14.8 % (11.5-14.5); RED CELL DISTRIBUTION WIDTH SD 52.7 fL (36.4-46.3); WHITE BLOOD COUNT 16.34 K/uL (4.8-10.8)
[2018-05-04 16:32] LABS: INR 1.1 (0.9-1.1); PTT PATIENT 25.3 SECONDS (21.0-31.0)
--- NOTE | 2018-05-04 16:37 | DIAGNOSTIC IMAGING REPORT ---
CT HEAD WITHOUT CONTRAST (CT) CLINICAL HISTORY: confusion CHANGE IN MENTAL STATUS COMPARISON STUDY: MRI the brain performed February 2013 TECHNIQUE: Axial CT of the brain is performed from the vertex to the skull base. IV contrast was not administered for this examination. A dose lowering technique was utilized adhering to the principles of ALARA. CT DOSE: 614.27 mGy.cm FINDINGS: No intra or extra-axial mass lesions are visualized. There is no CT evidence of acute cortical infarction. There is no evidence of midline shift. There is no acute hemorrhage. No calvarial fractures are visualized. There are minor white matter hypodensities likely on a small vessel basis. There is no evidence of pathologic ventricular dilatation. There is mild maxillary and ethmoid sinus mucosal thickening. There is a stable subcutaneous nodule within the right occipital scalp measuring 2 cm. IMPRESSION: No acute intracranial findings Electronically signed by: Brando Dugan M.D. 05/04/2018 4:36 PM Dictated Date/Time: 05/04/2018 4:34 PM
[2018-05-04 16:38] LABS: BASO % 0.2 %; BASO ABS # 0.03 K/uL (0-0.2); EOS % 0.2 %; EOS ABS # 0.04 K/uL (0-0.5); IG# 0.08 K/uL (0.00-0.02); LYMPH % 2.9 %; LYMPH ABS # 0.47 K/uL (1.2-3.4); MONO ABS # 0.17 K/uL (0.11-0.59); NEUT % 95.2 %; NEUT ABS # 15.55 K/uL (1.4-6.5)
[2018-05-04 16:42] LABS: ALBUMIN 2.4 gm/dl (3.4-5.0); CALCIUM 7.7 mg/dl (8.5-10.1); CKMB 1.2 ng/ml (0.5-3.6); CREATININE 1.69 mg/dl (0.60-1.40); PHOSPHORUS 2.3 mg/dl (2.5-4.9); POTASSIUM 4.1 mmol/L (3.5-5.1)
[2018-05-04] MEDS ORDERED: SODIUM CHLORIDE 0.9% 1000ML 1,000 ML IV STA (16:42)
[2018-05-04] MEDS ORDERED: NOREPINEPHRINE BIT INJ 8 MG in DEXTROSE 5% 500ML 500 ML IV STA ×2 (16:42→19:28)
[2018-05-04] MEDS ORDERED: LEVAQUIN 750MG / 150ML D5W IV STA (16:42)
[2018-05-04] MEDS ORDERED: MAGNESIUM SULFATE 1GM / D5W 1 GM BAG IV STA (16:43)
--- NOTE | 2018-05-04 16:46 | DIAGNOSTIC IMAGING REPORT ---
CT SCAN OF THE ABDOMEN AND PELVIS WITHOUT CONTRAST CLINICAL HISTORY: diarrhea COMPARISON STUDY: December 2015 TECHNIQUE: CT scan of the abdomen and pelvis was performed from the lung bases to the proximal femurs. Images are reviewed in the axial, sagittal, and coronal planes. IV contrast was not administered for this examination. A dose lowering technique was utilized adhering to the principles of ALARA. CT DOSE: 824.09 mGy.cm FINDINGS: Lower chest: The heart is enlarged. There is basilar interstitial thickening with a subpleural predominance. Underlying interstitial lung disease is suspected. Liver: The unenhanced liver is normal in size, contour, and attenuation. There is no intrahepatic biliary ductal dilatation. Gallbladder: Cholelithiasis Spleen: Normal in size and attenuation. Pancreas: There is a dominant pancreatic atrophy. No masses are visualized. Adrenal glands: Unremarkable. Kidneys: There is bilateral perinephric stranding. There is persistent dilatation left renal pelvis and a pattern consistent with a chronic UPJ obstruction. No renal or ureteral calculi are visualized. Bowel: There are no transition zones indicate bowel obstruction. There is colonic diverticulosis. There are no acute peridiverticular inflammatory changes. The appendix is not visualized with certainty Peritoneum: There is no intraperitoneal free air or abdominal ascites. Vasculature: There is mild aneurysmal dilatation of the infrarenal abdominal aorta which measures 31 mm Adenopathy: None. Pelvic viscera: There is an indwelling Kirby catheter. There is bladder wall thickening. There is prostamegaly. There is a fat-containing left inguinal hernia. Skeletal structures: There are multilevel spondylitic changes. There is gas present within the left extradural space at the L3 level likely on a discogenic basis. There is multilevel spinal stenosis. IMPRESSION: 1. No evidence of bowel obstruction. No evidence of free air 2. Diverticulosis. No evidence of acute diverticulitis 3. Cholelithiasis 4. Chronic left UPJ obstruction 5. Prostamegaly with bladder wall thickening 6. Multilevel spondylitic changes within the spine 7. 31 mm infrarenal abdominal aortic aneurysm 8. Interstitial lung disease Electronically signed by: Brando Dugan M.D. 05/04/2018 4:45 PM Dictated Date/Time: 05/04/2018 4:37 PM
[2018-05-04] MEDS ORDERED: METH-1305 PO (17:07)
[2018-05-04] MEDS ORDERED: ROPI0.25 PO (17:07)
[2018-05-04] MEDS ORDERED: ESCI1TAB6 PO (17:07)
[2018-05-04] MEDS ORDERED: DUTA0.5C PO (17:07)
[2018-05-04] MEDS ORDERED: SPRIN/30 INH (17:08)
[2018-05-04] MEDS ORDERED: VNTHFA/IN INH (17:08)
[2018-05-04] MEDS ORDERED: [UNRECOGNIZED DRUG - CODE] OPR (17:08)
[2018-05-04] MEDS ORDERED: PIPERACILL/TAZOBAC IV 4.5 GM in DEXTROSE 5% 100ML 100 ML IV SCH (18:00)
[2018-05-04] MEDS ORDERED: PIPERACILLIN/TAZOBACTAM 4.5 GM/100ML D5W IV SCH (18:00)
[2018-05-04] MEDS ORDERED: ICU PROTOCOL FOR HYPERGLYCEMIA PRN ×2 (19:30→22:30)
--- NOTE | 2018-05-04 19:43 | History and Physical ---
History & Physical Date & Time of Service: May 04, 2018 at 19:42 Chief Complaint: Diarrhea/Sluggish / [place] Primary Care Physician: Jason Willis M.D. History of Present Illness Source: patient, family, spouse 87 yo male reports he awoke feeling lethargic and had multiple episodes of watery diarrhea, which began today. Patient denies any sick Contacts or change in recent diet. Patients states that he self caths and due to his dementia, he does not explain if he has new symptoms. As patient had sunjective fevers, worsening of fatigue and lethargy which started ths AM and has gradually worsened,. patient's spouse decided to bring patient to the ER. Patient was found to be hypotensive with systolic below 90. Patient did not respond to fluids and was placed on norepinephrine. Intensive care admission was called. Past Medical/Surgical History Medical Problems: (1) Allergic rhinitis (2) Asthma (3) Bilateral inguinal hernia repair (4) COPD (chronic obstructive pulmonary disease) (5) Dislodged Kirby catheter (6) Duodenal ulcer (7) Gallstone (8) Gammopathy (9) Laceration (10) Septic shock due to urinary tract infection (11) Spinal stenosis of lumbar region (12) Tonsillectomy (13) Urethral laceration (14) Urinary retention (15) Vasectomy Family History Diabetes mellitus Social History Smoking Status: Never Smoker Drug Use: none Marital Status: Occupational Status: retired Immunizations History of Influenza Vaccine: Yes Influenza Vaccine Date: Jul 28, 2012 History of Tetanus Vaccine?: Yes History of Pneumococcal: Yes Pneumococcal Date: Jan 01, 2011 History of Hepatitis B Vaccine: Yes Allergies Coded Allergies: Hydroxyzine (Verified Allergy, Unknown, swelling, 05/04/18) Midazolam (Verified Allergy, Unknown, apneic, 05/04/18) Paroxetine (Verified Allergy, Unknown, unknown, 05/04/18) Sulfa Antibiotics (Verified Allergy, Unknown, UNKNOWN, 05/04/18) Lorazepam (Verified Adverse Reaction, Unknown, flushes, 05/04/18) Naproxen (Verified Adverse Reaction, Unknown, GI distress, 05/04/18) Home Medications Scheduled Albuterol Hfa (Ventolin Hfa), 2-4 PUFFS INH Q6H Cetirizine Hcl (Zyrtec), 10 MG PO DAILY Clopidogrel (Plavix), 75 MG PO DAILY Cyanocobalamin (Vitamin B-12), 1,000 MCG PO DAILY Dutasteride (Avodart), 0.5 MG PO DAILY Epinephrine (Epipen), 0.3 MG IM UD Escitalopram Oxalate (Lexapro), 5 MG PO DAILY Fluticasone Prop/Salmeterol (Advair Diskus 500/50 60 Dose), 1 PUFF INH BID Furosemide (Lasix), 20 MG PO DAILY Galantamine Hydrobromide (Razadyne Ext Rel), 16 MG PO DAILY Methenamine Hippurate (Methenamine Hippurate), 1 GM PO DAILY Montelukast Sodium (Singulair), 10 MG PO DAILY Potassium Chloride (Micro-K Ext Rel), 10 MEQ PO DAILY Ropinirole (Requip), 0.25 MG PO HS Sodium Chloride Hypertonic (Sodium Chloride Opthalmic), 1 DROP OPR DAILY Tiotropium [place] (Spiriva Handihaler), 1 CAP INH DAILY Review of Systems Constitutional: + fever, + chills ENT: + hearing loss Respiratory: No cough Cardiovascular: No chest pain Abdomen: No pain Musculoskeletal: No joint pain Neurologic: + memory loss Psychiatric: No depression symptoms Endocrine: + fatigue Hematologic / Lymphatic: No abnormal bleeding/bruising Integumentary: No rash Allergic / Immunologic: No environmental allergies Physical Exam Vital Signs Date Time Temp Pulse Resp B/P (MAP) Pulse Ox O2 Delivery O2 Flow Rate FiO2 05/04/18 18:15 71 22 104/50 100 Nasal Cannula 3.0 05/04/18 18:01 75 18 109/59 100 Nasal Cannula 4.0 05/04/18 17:50 76 20 115/66 100 Nasal Cannula 4.0 05/04/18 17:40 78 18 112/64 100 Nasal Cannula 4.0 05/04/18 17:30 75 20 108/67 100 Nasal Cannula 4.0 05/04/18 17:24 76 20 88/47 100 Nasal Cannula 4.0 05/04/18 17:10 37.3 76 20 89/46 99 Nasal Cannula 4.0 05/04/18 17:02 76 20 85/54 98 Nasal Cannula 4.0 05/04/18 16:40 75 24 62/50 100 Nasal Cannula 4.0 05/04/18 16:16 84 20 87/46 97 Nasal Cannula 4.0 05/04/18 16:00 84 22 96/48 93 Nasal Cannula 4.0 05/04/18 15:58 85 05/04/18 15:50 82 16 91/52 99 Room Air 05/04/18 15:45 100 Nasal Cannula 4.0 05/04/18 15:45 91 14 74/38 96 Nasal Cannula 4.0 05/04/18 15:39 85 18 79/44 100 Nasal Cannula 4.0 05/04/18 15:36 37.5 87 20 83/35 87 Room Air General Appearance: WD/WN, no apparent distress, + pertinent finding (right groin femoral central line) Head: normocephalic Eyes: normal inspection ENT: normal ENT inspection Neck: supple, no adenopathy Respiratory/Chest: chest non-tender, lungs clear, normal breath sounds Cardiovascular: regular rate, rhythm, no edema Abdomen/GI: normal bowel sounds, non tender, soft Back: normal inspection Neurologic/Psych: alert, normal mood/affect Skin: normal color Lymphatic: no adenopathy Diagnostics Laboratory Results Results Past 24 Hours Test 05/04/18 15:50 05/04/18 15:51 05/04/18 16:01 05/04/18 16:10 Range/Units White Blood Count 16.34 4.8-10.8 K/uL Red Blood Count 4.08 4.7-6.1 M/uL Hemoglobin 12.9 14.0-18.0 g/dL Hematocrit 39.6 42-52 % Mean Corpuscular Volume 97.1 80-100 fL Mean Corpuscular Hemoglobin 31.6 25-34 pg Mean Corpuscular Hemoglobin Concent 32.6 32-36 g/dl Platelet Count 203 130-400 K/uL Mean Platelet Volume 10.0 7.4-10.4 fL Neutrophils (%) (Auto) 95.2 % Lymphocytes (%) (Auto) 2.9 % Monocytes (%) (Auto) 1.0 % Eosinophils (%) (Auto) 0.2 % Basophils (%) (Auto) 0.2 % Neutrophils # (Auto) 15.55 1.4-6.5 K/uL Lymphocytes # (Auto) 0.47 1.2-3.4 K/uL Monocytes # (Auto) 0.17 0.11-0.59 K/uL Eosinophils # (Auto) 0.04 0-0.5 K/uL Basophils # (Auto) 0.03 0-0.2 K/uL RDW Standard Deviation 52.7 36.4-46.3 fL RDW Coefficient of Variation 14.8 11.5-14.5 % Immature Granulocyte % (Auto) 0.5 % Immature Granulocyte # (Auto) 0.08 0.00-0.02 K/uL Erythrocyte Sedimentation Rate 39 0-14 mm/hr Prothrombin Time 11.6 9.0-12.0 SECONDS Prothromb Time International Ratio 1.1 0.9-1.1 Activated Partial Thromboplast Time 25.3 21.0-31.0 SECONDS Partial Thromboplastin Ratio 1.0 Sodium Level 140 136-145 mmol/L Potassium Level 4.1 3.5-5.1 mmol/L Chloride Level 106 98-107 mmol/L Carbon Dioxide Level 24 21-32 mmol/L Anion Gap 10.0 3-11 mmol/L Blood Urea Nitrogen 28 7-18 mg/dl Creatinine 1.69 0.60-1.40 mg/dl Est Creatinine Clear Calc Drug Dose 34.9 ml/min Estimated GFR () 41.7 Estimated GFR (Non- 36.0 BUN/Creatinine Ratio 16.3 10-20 Random Glucose 72 70-99 mg/dl Calcium Level 7.7 8.5-10.1 mg/dl Phosphorus Level 2.3 2.5-4.9 mg/dl Magnesium Level 1.6 1.8-2.4 mg/dl Total Bilirubin 0.7 0.2-1 mg/dl Aspartate Amino Transf (AST/SGOT) 15 15-37 U/L Alanine Aminotransferase (ALT/SGPT) 16 12-78 U/L Alkaline Phosphatase 67 45-117 U/L Total Creatine Kinase 100 39-308 U/L Creatine Kinase MB 1.2 0.5-3.6 ng/ml Creatine Kinase MB Ratio 1.2 0-3.0 Troponin I 0.369 0-0.045 ng/ml C-Reactive Protein 2.44 0-0.29 mg/dl Pro-B-Type Natriuretic Peptide 2487 0-1800 pg/ml Total Protein 6.0 6.4-8.2 gm/dl Albumin 2.4 3.4-5.0 gm/dl Globulin 3.6 2.5-4.0 gm/dl Albumin/Globulin Ratio 0.7 0.9-2 Lipase 50 73-393 U/L Bedside Glucose 78 70-99 mg/dl Bedside Lactic Acid Venous 2.37 0.90-1.70 mmol/L Urine Color YELLOW Urine Appearance CLOUDY CLEAR Urine pH 5.0 4.5-7.5 Urine Specific [place] 1.012 1.000-1.030 Urine Protein NEG NEG Urine Glucose (UA) NEG NEG Urine Ketones NEG NEG Urine Occult Blood 2+ NEG Urine Nitrite POS NEG Urine Bilirubin NEG NEG Urine Urobilinogen NEG NEG Urine Leukocyte Esterase LARGE NEG Urine WBC (Auto) >30 0-5 /hpf Urine RBC (Auto) 0-4 0-4 /hpf Urine Hyaline Casts (Auto) 1-5 0-5 /lpf Urine Epithelial Cells (Auto) 0-5 0-5 /lpf Urine Bacteria (Auto) 2+ NEG Test 05/04/18 16:47 05/04/18 19:26 Range/Units Venous Blood pH 7.29 7.36-7.41 Venous Blood Partial Pressure CO2 50 38.0-50.0 mmHg Venous Blood Partial Pressure O2 35 mmHg Venous Blood HCO3 24 mmol/L Venous Blood Oxygen Saturation 61.7 % Venous Blood Base Excess -3.3 mEq/L Microbiology Results 05/04/18 Blood Culture, Received Pending 05/04/18 Blood Culture, Received Pending 05/04/18 Urine Culture, Received Pending Diagnostic Radiology CHEST ONE VIEW PORTABLE CLINICAL HISTORY: Sepsis COMPARISON STUDY: 09/19/2016 FINDINGS: The heart is enlarged. There is mild elevation of the interstitium, likely secondary to mild congestive failure/fluid overload. A bilateral interstitial inflammatory process could appear similar There are no pleural effusions. There is no lobar consolidation.[ IMPRESSION: Cardiomegaly and elevation of the interstitium. While likely secondary to mild congestive failure, an interstitial inflammatory process could appear similar EKG Sinus rhythm with Premature supraventricular complexes Low voltage QRS Borderline ECG When compared with ECG of 02-JAN-2016 11:51, No significant change Impression Assessment and Plan Septic shock in an 87 yo male with likely urosepsis Source is likely urinary from self catheterization. Give critical condition, likely urosepsis. Patient is on zosyn. Patient is on norepinephrine as he did not respond to fluid resuscitation. MAP is above [address] on IVF to help decrease need of norepinephrine. will reorder lactic acid will consult with ICU D/W Dr. Purvis will admit to ICU Type 2 MT Likely from septic shock and demand ischemia will monitor trop. No need for heparinization COPD Will resume home meds Restless leg syndrome. will resume home meds Hypertension will hold home meds. Code Level 5 Spent 90 minutes on admission with 32 minutes on critical care time. Advanced Directives Existing Advance Directive: No Existing Living Will: No Existing Power of Paper Cone Machine Operator: No Resuscitation Status VTE Prophylaxis Will order VTE Prophylaxis: Yes Note Total Time: Critical Care 30 - 74 minutes
[2018-05-04 20:05] VITALS: BP 105/58; PULSE 70; TEMP 36.9; O2SAT 97; Ht 175.3 cm; Wt 97.4 kg
[2018-05-04] MEDS ORDERED: PIPERACILL/TAZOBAC CONSULT ACTIVE PRN (20:15)
[2018-05-04 21:00] VITALS: BP 119/58; PULSE 68; TEMP 36.9; O2SAT 97
[2018-05-04] MEDS: SODIUM CHLORIDE 0.9% 1000ML 1,000 ML IV SCH (21:03)
[2018-05-04] MEDS: NOREPINEPHRINE BIT INJ 8 MG in DEXTROSE 5% 500ML 500 ML IV PRN ×2 (21:07→22:24)
[2018-05-04 22:00] VITALS: BP 131/69; PULSE 68; O2SAT 95
[2018-05-04] MEDS ORDERED: HEPARIN SOD 5000 UNIT/0.5 ML CARP SQ SCH (22:00)
[2018-05-04] MEDS: ROPINIROLE HCL 0.25 MG TAB PO SCH (22:22)
[2018-05-04] MEDS ORDERED: MAGNESIUM SULFATE 1GM / D5W 100 ML IV STA (22:25)
[2018-05-04] MEDS ORDERED: THIAMINE HCL INJ 200 MG in SODIUM CHLORIDE 0.9% 50ML 50 ML IV STA (22:27)
[2018-05-04] MEDS: FLUTICASONE/SALMETEROL (ADVAIR) 500/50 INH 14 PUFF INH SCH (22:27)
[2018-05-04 23:00] VITALS: BP 85/36; PULSE 67; O2SAT 87
[2018-05-04] MEDS: PIPERACILL/TAZOBAC IV 4.5 GM in DEXTROSE 5% 100ML 100 ML IV SCH (23:09)
[2018-05-04] MEDS: ALBUTEROL HFA 8 GM INHALER INH SCH (23:12)
[2018-05-05] VITALS (50 sets, daily range): BP systolic 90–131; BP diastolic 43–77; PULSE 64–99; TEMP 36.8–37.3; O2SAT 76–98
[2018-05-05] MEDS: SODIUM CHLORIDE 0.9% 1000ML 1,000 ML IV SCH ×4 (03:23→22:30)
[2018-05-05 05:01] LABS: INR 1.3 (0.9-1.1); PTT PATIENT 33.8 SECONDS (21.0-31.0)
[2018-05-05 05:03] LABS: HEMATOCRIT 37.7 % (42-52); HEMOGLOBIN 12.4 g/dL (14.0-18.0); MEAN CELL VOLUME 95.9 fL (80-100); MEAN CORPUSCULAR HEMOGLOBIN 31.6 pg (25-34); MEAN CORPUSCULAR HGB CONC 32.9 g/dl (32-36); MEAN PLATELET VOLUME 10.2 fL (7.4-10.4); PLATELET COUNT 188 K/uL (130-400); RED CELL DISTRIBUTION WIDTH CV 14.9 % (11.5-14.5); RED CELL DISTRIBUTION WIDTH SD 52.3 fL (36.4-46.3); WHITE BLOOD COUNT 28.53 K/uL (4.8-10.8)
[2018-05-05 05:19] LABS: BASO % 0.2 %; BASO ABS # 0.05 K/uL (0-0.2); EOS % 0.6 %; EOS ABS # 0.18 K/uL (0-0.5); IG# 0.21 K/uL (0.00-0.02); LYMPH % 3.8 %; LYMPH ABS # 1.09 K/uL (1.2-3.4); MONO % 4.9 %; NEUT % 89.8 %
[2018-05-05 05:40] LABS: ALBUMIN 2.1 gm/dl (3.4-5.0); CALCIUM 7.1 mg/dl (8.5-10.1); CREATININE 1.84 mg/dl (0.60-1.40); PHOSPHORUS 3.2 mg/dl (2.5-4.9); POTASSIUM 4.2 mmol/L (3.5-5.1); TOTAL PROTEIN 5.8 gm/dl (6.4-8.2)
[2018-05-05] MEDS: ALBUTEROL HFA 8 GM INHALER INH SCH ×3 (06:00→18:12)
[2018-05-05] MEDS: NOREPINEPHRINE BIT INJ 8 MG in DEXTROSE 5% 500ML 500 ML IV PRN (06:32)
[2018-05-05] MEDS: HEPARIN SOD 5000 UNIT/0.5 ML CARP SQ SCH ×3 (06:35→21:30)
[2018-05-05] MEDS: PIPERACILL/TAZOBAC IV 4.5 GM in DEXTROSE 5% 100ML 100 ML IV SCH ×2 (07:38→15:40)
[2018-05-05] MEDS: FLUTICASONE/SALMETEROL (ADVAIR) 500/50 INH 14 PUFF INH SCH ×2 (07:44→21:29)
[2018-05-05] MEDS: SODIUM CHLORIDE 5% OP SOLN 15 ML BTL OPR SCH (07:44)
[2018-05-05] MEDS: TIOTROPIUM BROMIDE 5 PUFF/90 MCG INH INH SCH (07:44)
[2018-05-05] MEDS: CLOPIDOGREL BISULFATE 75 MG TAB PO SCH (07:45)
[2018-05-05] MEDS: POTASSIUM CHLORIDE 10 MEQ TABCR PO SCH (07:45)
[2018-05-05] MEDS: ESCITALOPRAM OXALATE 10 MG TAB PO SCH (07:45)
[2018-05-05] MEDS: MONTELUKAST SOD 10 MG TAB PO SCH (07:45)
[2018-05-05] MEDS: CYANOCOBALAMIN 500 MCG TAB (VIT B-12) PO SCH (07:46)
[2018-05-05] MEDS: CETIRIZINE HCL 10 MG TAB PO SCH (07:46)
[2018-05-05] MEDS: THIAMINE HCL INJ 200 MG in SODIUM CHLORIDE 0.9% 50ML 50 ML IV SCH (07:49)
[2018-05-05] MEDS: GALANTAMINE HYDROBROMIDE 8 MG CAPER PO SCH (09:16)
--- NOTE | 2018-05-05 09:23 | Urology Consultation ---
History General Date of Service: May 05, 2018. Chief Complaint: Left hydronephrosis and sepsis Primary Care Physician: Jason Willis M.D. Pt seen a urologist before?: Yes (Dr. 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 ED report mentions history of dementia. Patient states this morning that he does not know why he is here. Admitted to ICU for septic shock. Currently on norepinephrine. Rising white count 16.34 yesterday now 28.53 today. Creatinine today is 1.84, this is elevated from normal baseline value of 0.[address] scan shows left hydronephrosis, suspected chronic in nature as this was also visualized on CT scan from 2016. Patient denies any pain this morning. States that his abdomen is distended but denies nausea/vomiting. Kirby catheter in place draining clear yellow urine. Imaging Imaging: CT Laboratory Last 24 Hours Test 05/04/18 15:50 05/04/18 15:51 05/04/18 16:01 05/04/18 16:10 White Blood Count 16.34 K/uL Red Blood Count 4.08 M/uL Hemoglobin 12.9 g/dL Hematocrit 39.6 % Mean Corpuscular Volume 97.1 fL Mean Corpuscular Hemoglobin 31.6 pg Mean Corpuscular Hemoglobin Concent 32.6 g/dl Platelet Count 203 K/uL Mean Platelet Volume 10.0 fL Neutrophils (%) (Auto) 95.2 % Lymphocytes (%) (Auto) 2.9 % Monocytes (%) (Auto) 1.0 % Eosinophils (%) (Auto) 0.2 % Basophils (%) (Auto) 0.2 % Neutrophils # (Auto) 15.55 K/uL Lymphocytes # (Auto) 0.47 K/uL Monocytes # (Auto) 0.17 K/uL Eosinophils # (Auto) 0.04 K/uL Basophils # (Auto) 0.03 K/uL RDW Standard Deviation 52.7 fL RDW Coefficient of Variation 14.8 % Immature Granulocyte % (Auto) 0.5 % Immature Granulocyte # (Auto) 0.08 K/uL Erythrocyte Sedimentation Rate 39 mm/hr Prothrombin Time 11.6 SECONDS Prothromb Time International Ratio 1.1 Activated Partial Thromboplast Time 25.3 SECONDS Partial Thromboplastin Ratio 1.0 Sodium Level 140 mmol/L Potassium Level 4.1 mmol/L Chloride Level 106 mmol/L Carbon Dioxide Level 24 mmol/L Anion Gap 10.0 mmol/L Blood Urea Nitrogen 28 mg/dl Creatinine 1.69 mg/dl Est Creatinine Clear Calc Drug Dose 34.9 ml/min Estimated GFR () 41.7 Estimated GFR (Non- 36.0 BUN/Creatinine Ratio 16.3 Random Glucose 72 mg/dl Calcium Level 7.7 mg/dl Phosphorus Level 2.3 mg/dl Magnesium Level 1.6 mg/dl Total Bilirubin 0.7 mg/dl Aspartate Amino Transf (AST/SGOT) 15 U/L Alanine Aminotransferase (ALT/SGPT) 16 U/L Alkaline Phosphatase 67 U/L Total Creatine Kinase 100 U/L Creatine Kinase MB 1.2 ng/ml Creatine Kinase MB Ratio 1.2 Troponin I 0.369 ng/ml C-Reactive Protein 2.44 mg/dl Pro-B-Type Natriuretic Peptide 2487 pg/ml Total Protein 6.0 gm/dl Albumin 2.4 gm/dl Globulin 3.6 gm/dl Albumin/Globulin Ratio 0.7 Lipase 50 U/L Procalcitonin 64.19 ng/ml Bedside Glucose 78 mg/dl Bedside Lactic Acid Venous 2.37 mmol/L Urine Color YELLOW Urine Appearance CLOUDY Urine pH 5.0 Urine Specific [place] 1.012 Urine Protein NEG Urine Glucose (UA) NEG Urine Ketones NEG Urine Occult Blood 2+ Urine Nitrite POS Urine Bilirubin NEG Urine Urobilinogen NEG Urine Leukocyte Esterase LARGE Urine WBC (Auto) >30 /hpf Urine RBC (Auto) 0-4 /hpf Urine Hyaline Casts (Auto) 1-5 /lpf Urine Epithelial Cells (Auto) 0-5 /lpf Urine Bacteria (Auto) 2+ Test 05/04/18 16:47 05/04/18 19:50 05/05/18 00:50 05/05/18 04:31 Venous Blood pH 7.29 Venous Blood Partial Pressure CO2 50 mmHg Venous Blood Partial Pressure O2 35 mmHg Venous Blood HCO3 24 mmol/L Venous Blood Oxygen Saturation 61.7 % Venous Blood Base Excess -3.3 mEq/L Lactic Acid Level 2.8 mmol/L Bedside Glucose 90 mg/dl White Blood Count 28.53 K/uL Red Blood Count 3.93 M/uL Hemoglobin 12.4 g/dL Hematocrit 37.7 % Mean Corpuscular Volume 95.9 fL Mean Corpuscular Hemoglobin 31.6 pg Mean Corpuscular Hemoglobin Concent 32.9 g/dl Platelet Count 188 K/uL Mean Platelet Volume 10.2 fL Neutrophils (%) (Auto) 89.8 % Lymphocytes (%) (Auto) 3.8 % Monocytes (%) (Auto) 4.9 % Eosinophils (%) (Auto) 0.6 % Basophils (%) (Auto) 0.2 % Neutrophils # (Auto) 25.60 K/uL Lymphocytes # (Auto) 1.09 K/uL Monocytes # (Auto) 1.40 K/uL Eosinophils # (Auto) 0.18 K/uL Basophils # (Auto) 0.05 K/uL RDW Standard Deviation 52.3 fL RDW Coefficient of Variation 14.9 % Immature Granulocyte % (Auto) 0.7 % Immature Granulocyte # (Auto) 0.21 K/uL Echinocytes 1+ Prothrombin Time 13.7 SECONDS Prothromb Time International Ratio 1.3 Activated Partial Thromboplast Time 33.8 SECONDS Partial Thromboplastin Ratio 1.3 Sodium Level 140 mmol/L Potassium Level 4.2 mmol/L Chloride Level 108 mmol/L Carbon Dioxide Level 23 mmol/L Anion Gap 9.0 mmol/L Blood Urea Nitrogen 26 mg/dl Creatinine 1.84 mg/dl Est Creatinine Clear Calc Drug Dose 33.2 ml/min Estimated GFR () 37.6 Estimated GFR (Non- 32.5 BUN/Creatinine Ratio 14.2 Random Glucose 95 mg/dl Calcium Level 7.1 mg/dl Phosphorus Level 3.2 mg/dl Magnesium Level 2.0 mg/dl Total Bilirubin 1.1 mg/dl Direct Bilirubin 0.5 mg/dl Aspartate Amino Transf (AST/SGOT) 22 U/L Alanine Aminotransferase (ALT/SGPT) 17 U/L Alkaline Phosphatase 62 U/L Total Creatine Kinase 289 U/L Troponin I 0.334 ng/ml Total Protein 5.8 gm/dl Albumin 2.1 gm/dl Lipase 29 U/L Test 05/05/18 06:28 Bedside Glucose 85 mg/dl Problem List Medical Problems: (1) Altered mental status Status: Acute (2) Dislodged Kirby catheter Status: Acute (3) Hypotension Status: Acute (4) Sepsis Status: Acute (5) Urethral laceration Status: Acute (6) UTI (urinary tract infection) Status: Acute Past History asthma, BPH, COPD, urinary tract infection (with septic shock), other (allergic rhinitis; duodenal ulcer; gallstone; gammopathy; lumbar spinal stenosis; urethral laceration; urinary retention) Past Surgical History: tonsillectomy, vasectomy, other (bilateral inguinal hernia repair) Family History Diabetes mellitus Social History Hx Tobacco Use In Past Year?: No Smoking: non-smoker Drug use: none Marital status: Housing status: lives with significant other, assisted living Occupation status: retired Immunizations History of Influenza Vaccine: Yes Influenza Vaccine Date: Jul 28, 2012 History of Tetanus Vaccine?: Yes History of Pneumococcal: Yes Pneumococcal Date: Jan 01, 2011 History of Hepatitis B Vaccine: Yes History of MDRO No Allergies Coded Allergies: Hydroxyzine (Verified Allergy, Unknown, swelling, 05/04/18) Midazolam (Verified Allergy, Unknown, apneic, 05/04/18) Paroxetine (Verified Allergy, Unknown, unknown, 05/04/18) Sulfa Antibiotics (Verified Allergy, Unknown, UNKNOWN, 05/04/18) Lorazepam (Verified Adverse Reaction, Unknown, flushes, 05/04/18) Naproxen (Verified Adverse Reaction, Unknown, GI distress, 05/04/18) Medications Home Medications: Home Meds and Scripts Medications Dose Route/Sig Max Daily Dose Days Date Category Sodium Chloride Opthalmic (Sodium Chloride Hypertonic) 5 % Eri 1 Drop OPR DAILY 05/04/18 Reported Ventolin Hfa (Albuterol) 200 Puffs/67015 Mcg Aers 2-4 Puffs INH Q6H 05/04/18 Reported Spiriva Handihaler (Tiotropium [place]) 30 Puff/540 Mcg Aerp 1 Cap INH DAILY 05/04/18 Reported Lexapro (Escitalopram Oxalate) 5 Mg Tab 5 Mg PO DAILY 05/04/18 Reported Avodart (Dutasteride) 0.5 Mg Cap 0.5 Mg PO DAILY 05/04/18 Reported Methenamine Hippurate 1 Gm Tab 1 Gm PO DAILY 05/04/18 Reported Requip (Ropinirole HCl) 0.25 Mg Tab 0.25 Mg PO HS 05/04/18 Reported Epipen (Epinephrine) 0.3 Mg/0.3 Ml Inj 0.3 Mg IM UD 01/02/16 Reported Razadyne Ext Rel (Galantamine Hydrobromide) 16 Mg Cap 16 Mg PO DAILY 01/02/16 Reported Lasix (Furosemide) 40 Mg Tab 20 Mg PO DAILY 01/02/16 Reported Singulair (Montelukast Sodium) 10 Mg Tab 10 Mg PO DAILY 03/31/15 Reported Zyrtec (Cetirizine Hcl) 10 Mg Tab 10 Mg PO DAILY 03/31/15 Reported Advair Diskus 500/50 60 Dose (Fluticasone Prop/Salmeterol) 1 Ea Aerp 1 Puff INH BID 03/31/15 Reported Plavix (Clopidogrel Bisulfate) 75 Mg Tab 75 Mg PO DAILY 03/31/15 Reported Micro-K Ext Rel (Potassium Chloride) 10 Meq Capcr 10 Meq PO DAILY 03/31/15 Reported Vitamin B-12 (Cyanocobalamin) 1,000 Mcg Tab 1,000 Mcg PO DAILY 03/31/15 Reported Inpatient Medications: Current Inpatient Medications Medications (Trade) Dose Ordered Sig/Bob Route Start Time Stop Time Status Last Admin Dose Admin Sodium Chloride 1,000 ml @ 150 mls/hr Q6H40M IV 05/04/18 20:23 06/03/18 19:27 05/05/18 03:23 150 MLS/HR Piperacillin Sod/ Tazobactam Sod 4.5 gm/Dextrose 120 ml @ 30 mls/hr Q8H IV 05/05/18 00:00 05/15/18 00:00 05/05/18 07:38 30 MLS/HR Albuterol (Ventolin Hfa Inhaler) 2 puffs Q6 INH 05/05/18 00:00 06/04/18 00:00 05/04/18 23:12 2 PUFFS Cetirizine HCl (zyrTEC TAB) 10 mg DAILY PO 05/05/18 09:00 06/04/18 08:59 05/05/18 07:46 10 MG Clopidogrel Bisulfate (plAVix TAB) 75 mg DAILY PO 05/05/18 09:00 06/04/18 08:59 05/05/18 07:45 75 MG Cyanocobalamin (Vitamin B-12 Tab) 1,000 mcg DAILY PO 05/05/18 09:00 06/04/18 08:59 05/05/18 07:46 1,000 MCG Escitalopram Oxalate (Lexapro Tab) 5 mg DAILY PO 05/05/18 09:00 06/04/18 08:59 05/05/18 07:45 5 MG Salmeterol Xinafoate/ Fluticasone (Advair Diskus 500/50 Inh) 1 puff BID INH 05/04/18 21:00 06/03/18 20:59 05/05/18 07:44 1 PUFF Galantamine Hydrobromide (Razadyne Cap) 16 mg DAILY PO 05/05/18 09:00 06/04/18 08:59 Montelukast Sodium (Singulair Tab) 10 mg DAILY PO 05/05/18 09:00 06/04/18 08:59 05/05/18 07:45 10 MG Potassium Chloride (Klor-Con M10) 10 meq DAILY PO 05/05/18 09:00 06/04/18 08:59 05/05/18 07:45 10 MEQ Ropinirole HCl (Requip Tab) 0.25 mg HS PO 05/04/18 21:00 06/03/18 20:59 Sodium Chloride ([place] 128 Oph Soln) 1 drops DAILY OPR 05/05/18 09:00 06/04/18 08:59 05/05/18 07:44 1 DROPS Tiotropium [place] (Spiriva Handihaler Inhaler) 1 puff DAILY INH 05/05/18 09:00 06/04/18 08:59 05/05/18 07:44 1 PUFF Miscellaneous Information (Order Awaiting Action) 1 ea QS N/A 05/05/18 00:00 06/04/18 00:00 Norepinephrine Bitartrate 8 mg/ Dextrose 508 ml @ 0 mls/hr Q0M PRN IV 05/04/18 20:15 06/03/18 20:14 05/05/18 06:32 60.8 MLS/HR Miscellaneous Information (Consult) 1 ea UD PRN N/A 05/04/18 20:15 06/03/18 20:14 Thiamine HCl 200 mg/Sodium Chloride 52 ml @ 208 mls/hr QAM IV 05/05/18 09:00 06/04/18 08:59 05/05/18 07:49 208 MLS/HR Heparin Sodium (Porcine) (Heparin Sq 5000 Unit/0.5ml) 5,000 unit Q8 SQ 05/05/18 06:00 06/04/18 05:59 05/05/18 06:35 5,000 UNIT Miscellaneous Information (Icu Protocol For Hyperglycemia) 1 ea PRN PRN N/A 05/04/18 22:30 05/06/18 22:29 Heparin Sodium (Porcine) (Heparin 10 Unit/ ml 5 ml Flush) 5 ml PRN PRN FLUSH 05/05/18 01:00 06/04/18 00:59 Review of Systems Review of Systems Constitutional: No fever Eyes: No double vision Neurological: No dizzy, No numbness/tingling Gastrointestinal: + problem reported (abdominal distention), No abdominal pain , No nausea, No vomiting Cardiovascular: No chest pain Respiratory: No shortness of breath Skin: No rash Musculoskeletal: No back pain Psychologic / Mental: + trouble remembering Male : No urinary retention, No blood in urine Physical Exam Vital Signs: Vital Signs Past 12 Hours Date Time Temp Pulse Resp B/P (MAP) Pulse Ox O2 Delivery O2 Flow Rate FiO2 05/05/18 08:00 36.8 72 18 123/52 (75) 98 Nasal Cannula 2.0 05/05/18 08:00 66 20 123/52 (90) 97 05/05/18 07:45 66 18 111/55 (91) 97 05/05/18 07:30 70 18 115/64 (75) 84 05/05/18 07:15 68 21 100/56 (80) 97 05/05/18 07:00 64 18 101/58 (76) 96 05/05/18 06:00 67 20 114/47 (69) 95 Nasal Cannula 2.0 05/05/18 06:00 67 20 05/05/18 05:00 70 18 102/58 (73) 96 Nasal Cannula 2.0 05/05/18 05:00 70 18 96 05/05/18 04:00 36.9 69 22 110/43 (65) 96 Nasal Cannula 2.0 05/05/18 04:00 69 22 96 05/05/18 03:00 70 17 98 05/05/18 03:00 70 17 113/50 (71) 98 Nasal Cannula 2.0 05/05/18 02:00 70 19 98 05/05/18 02:00 70 19 123/64 (83) 98 2.0 05/05/18 01:00 69 18 111/50 (70) 97 Nasal Cannula 2.0 05/05/18 01:00 69 18 97 05/05/18 00:58 Nasal Cannula 2.0 05/05/18 00:01 37.0 75 17 115/45 (68) 98 Nasal Cannula 2.0 05/05/18 00:01 75 17 115/45 (78) 98 05/04/18 23:00 67 18 85/36 (52) 87 Nasal Cannula 2.0 05/04/18 23:00 67 18 87 05/04/18 22:00 68 20 131/69 (89) 95 Nasal Cannula 2.0 05/04/18 22:00 68 20 95 05/04/18 21:00 68 16 119/58 (76) 97 05/04/18 21:00 36.9 68 16 119/58 (78) 97 Nasal Cannula 2.0 Physical Exam: General Appearance: no apparent distress Eyes: bilateral eyes normal inspection ENT: hearing grossly normal Neck: no JVD Respiratory/Chest: no respiratory distress, no accessory muscle use Cardiovascular: no edema, no JVD Extremities: normal inspection Neurologic/Psychiatric: alert, normal mood/affect, oriented x 3 Skin: normal color Assessment & Plan Assessment & Plan Treatment Planned: cystoscopy w/ stent Left hydronephrosis with sepsis. Will coordinate OR procedure today for cystoscopy, left ureteral stent placement with Dr. Angulo. Risk and benefits of procedure discussed with patient. All questions answered. Patient agrees to the procedure at this time. Continue IV antibiotics pending culture sensitivities. Will need 14 days of therapy. Thanks for the consult, will continue to follow with primary service. ATTENDING NOTE 1. Left hydronephrosis 2. Sepsis 3. Pyelonephritis. Discussed at length with patient. Unsure if hydronephrosis is source of infection, however, drainage would improve if source. Discussed pyelonephritis and sepsis. Risks and benefits discussed at length. Will set up cytoscopy and left stent placement.
[2018-05-05] MEDS ORDERED: LIDOCAINE HCL 2% 2 ML VIAL (20MG/ML) ONE (09:44)
[2018-05-05] MEDS ORDERED: ONDANSETRON INJ 2 MG/ML 2 ML VIAL ONE (09:44)
[2018-05-05] MEDS ORDERED: FENTANYL CITRATE INJ 50 MCG/1 ML 2 ML VIAL ONE (09:44)
[2018-05-05] MEDS ORDERED: PROPOFOL IV EMULSION 10 MG/ML 20 ML VIAL ONE (09:44)
[2018-05-05] MEDS ORDERED: KETAMINE HCL INJ 50 MG/ML 10 ML VIAL ONE (09:52)
[2018-05-05] MEDS ORDERED: Cysto-Conray II 17.2% 250ML BOTTLE ONE (10:03)
--- NOTE | 2018-05-05 10:26 | Critical Care Progress Note ---
Critical Care Progress Note Date of Service May 05, 2018. Attending Dr. Jack Subjective The patient is more awake today, following commands, he denies any pain except for mild discomfort mainly in the left side of his flank. He denies any nausea or vomiting and no shortness of breath. Answering questions and following commands. No new symptoms and no events overnight. The patient admitted to the hospital with diagnosis of UTI and sepsis, started on IV fluid, he had a femoral line placed by the ED, and started on pressors to maintain his blood pressure. He received adequate hydration and currently he is on 150 mL of normal saline an hour. Objective His physical exam on 05/05/2018 showed no fever, vital signs remained stable with the presence of pressors. Heart examination S1-S2 regular rate and rhythm with distant breath sounds bilaterally. Abdomen is obese and soft bowel sounds are positive minimal tenderness mainly in the left flank. No edema. His labs were reviewed which showed elevated white count, BUN creatinine has been borderline. Assessment & Plan 1. Septic shock requiring pressors in addition to the IV fluid. 2. UTI with gram-negative jagjit. 3. Left hydronephrosis with stranding around the left kidney consistent with acute pyelonephritis. 4. History of COPD. 5. History of spinal stenosis. Plan: 1. Continue Zosyn. 2. Check the sensitivity of the gram-negative jagjit in the urine. 3. Consult urology, appreciate input of Dr. Angulo. Patient is going to the OR for ureteral stent. 4. Keep the patient n.p.o. 5. DVT prophylaxis. 6. Continue bronchodilators. 7. Wean norepinephrine to off. 8. Once the patient is off the pressors, will discontinue the femoral line. 9. Discussed with the staff on rounds and details, critical care time spent with the patient was 35 minutes. Data Medications: Current Inpatient Medications Medications (Trade) Dose Ordered Sig/Bob Route Start Time Stop Time Status Last Admin Dose Admin Sodium Chloride 1,000 ml @ 150 mls/hr Q6H40M IV 05/04/18 20:23 06/03/18 19:27 05/05/18 09:17 150 MLS/HR Piperacillin Sod/ Tazobactam Sod 4.5 gm/Dextrose 120 ml @ 30 mls/hr Q8H IV 05/05/18 00:00 05/15/18 00:00 05/05/18 07:38 30 MLS/HR Albuterol (Ventolin Hfa Inhaler) 2 puffs Q6 INH 05/05/18 00:00 06/04/18 00:00 05/04/18 23:12 2 PUFFS Cetirizine HCl (zyrTEC TAB) 10 mg DAILY PO 05/05/18 09:00 06/04/18 08:59 05/05/18 07:46 10 MG Clopidogrel Bisulfate (plAVix TAB) 75 mg DAILY PO 05/05/18 09:00 06/04/18 08:59 05/05/18 07:45 75 MG Cyanocobalamin (Vitamin B-12 Tab) 1,000 mcg DAILY PO 05/05/18 09:00 06/04/18 08:59 05/05/18 07:46 1,000 MCG Escitalopram Oxalate (Lexapro Tab) 5 mg DAILY PO 05/05/18 09:00 06/04/18 08:59 05/05/18 07:45 5 MG Salmeterol Xinafoate/ Fluticasone (Advair Diskus 500/50 Inh) 1 puff BID INH 05/04/18 21:00 06/03/18 20:59 05/05/18 07:44 1 PUFF Galantamine Hydrobromide (Razadyne Cap) 16 mg DAILY PO 05/05/18 09:00 06/04/18 08:59 05/05/18 09:16 16 MG Montelukast Sodium (Singulair Tab) 10 mg DAILY PO 05/05/18 09:00 06/04/18 08:59 05/05/18 07:45 10 MG Potassium Chloride (Klor-Con M10) 10 meq DAILY PO 05/05/18 09:00 06/04/18 08:59 05/05/18 07:45 10 MEQ Ropinirole HCl (Requip Tab) 0.25 mg HS PO 05/04/18 21:00 06/03/18 20:59 Sodium Chloride ([place] 128 Oph Soln) 1 drops DAILY OPR 05/05/18 09:00 06/04/18 08:59 05/05/18 07:44 1 DROPS Tiotropium [place] (Spiriva Handihaler Inhaler) 1 puff DAILY INH 05/05/18 09:00 06/04/18 08:59 05/05/18 07:44 1 PUFF Miscellaneous Information (Order Awaiting Action) 1 ea QS N/A 05/05/18 00:00 06/04/18 00:00 Norepinephrine Bitartrate 8 mg/ Dextrose 508 ml @ 0 mls/hr Q0M PRN IV 05/04/18 20:15 06/03/18 20:14 05/05/18 06:32 60.8 MLS/HR Miscellaneous Information (Consult) 1 ea UD PRN N/A 05/04/18 20:15 06/03/18 20:14 Thiamine HCl 200 mg/Sodium Chloride 52 ml @ 208 mls/hr QAM IV 05/05/18 09:00 06/04/18 08:59 05/05/18 07:49 208 MLS/HR Heparin Sodium (Porcine) (Heparin Sq 5000 Unit/0.5ml) 5,000 unit Q8 SQ 05/05/18 06:00 06/04/18 05:59 05/05/18 06:35 5,000 UNIT Miscellaneous Information (Icu Protocol For Hyperglycemia) 1 ea PRN PRN N/A 05/04/18 22:30 05/06/18 22:29 Heparin Sodium (Porcine) (Heparin 10 Unit/ ml 5 ml Flush) 5 ml PRN PRN FLUSH 05/05/18 01:00 06/04/18 00:59 Furosemide 40 mg/ Syringe 4 ml @ 4 mls/min BID17 IV 05/05/18 17:00 06/04/18 16:59 I & O: 24-Hour Column 05/06/18 08:00 Intake Total 395 ml Output Total 550 ml Balance -155 ml Vital Signs: Date Time Temp Pulse Resp B/P (MAP) Pulse Ox O2 Delivery O2 Flow Rate FiO2 05/05/18 10:00 36.9 70 18 131/61 (84) 96 Nasal Cannula 2.0 05/05/18 10:00 75 18 131/61 (88) 97 05/05/18 09:45 69 19 120/60 (74) 96 05/05/18 09:30 71 15 107/59 (80) 98 05/05/18 09:30 71 15 107/59 (80) 98 05/05/18 09:15 68 20 105/44 (75) 98 05/05/18 09:00 76 20 107/49 (78) 98 05/05/18 09:00 67 18 107/49 (68) 96 Nasal Cannula 2.0 05/05/18 08:45 66 10 97/68 (77) 95 05/05/18 08:31 77 14 113/54 (69) 97 05/05/18 08:30 70 18 122/43 (83) 92 05/05/18 08:16 70 18 122/43 (83) 92 05/05/18 08:15 70 18 122/43 (83) 92 05/05/18 08:01 66 20 123/52 (90) 97 05/05/18 08:00 Nasal Cannula 2.0 05/05/18 08:00 36.8 72 18 123/52 (75) 98 Nasal Cannula 2.0 05/05/18 08:00 66 20 123/52 (90) 97 05/05/18 07:45 66 18 111/55 (91) 97 05/05/18 07:30 70 18 115/64 (75) 84 05/05/18 07:15 68 21 100/56 (80) 97 05/05/18 07:00 64 18 101/58 (76) 96 05/05/18 06:00 67 20 114/47 (69) 95 Nasal Cannula 2.0 05/05/18 06:00 67 20 05/05/18 05:00 70 18 102/58 (73) 96 Nasal Cannula 2.0 05/05/18 05:00 70 18 96 05/05/18 04:00 36.9 69 22 110/43 (65) 96 Nasal Cannula 2.0 05/05/18 04:00 69 22 96 05/05/18 03:00 70 17 98 05/05/18 03:00 70 17 113/50 (71) 98 Nasal Cannula 2.0 05/05/18 02:00 70 19 98 05/05/18 02:00 70 19 123/64 (83) 98 2.0 05/05/18 01:00 69 18 111/50 (70) 97 Nasal Cannula 2.0 05/05/18 01:00 69 18 97 05/05/18 00:58 Nasal Cannula 2.0 05/05/18 00:01 37.0 75 17 115/45 (68) 98 Nasal Cannula 2.0 7/9/18 00:01 75 17 115/45 (78) 98 7/8/18 23:00 67 18 85/36 (52) 87 Nasal Cannula 2.0 7/8/18 23:00 67 18 87 7/8/18 22:00 68 20 131/69 (89) 95 Nasal Cannula 2.0 7/8/18 22:00 68 20 95 7/8/18 21:00 68 16 119/58 (76) 97 7/8/18 21:00 36.9 68 16 119/58 (78) 97 Nasal Cannula 2.0 7/8/18 20:05 36.9 70 18 105/58 97 Nasal Cannula 3.0 7/8/18 19:55 67 18 107/49 98 7/8/18 19:31 107/49 7/8/18 19:30 67 18 98 7/8/18 19:29 104/52 7/8/18 19:15 66 24 106/74 97 7/8/18 19:14 123/81 7/8/18 19:00 68 24 123/81 97 7/8/18 18:42 37.1 77 20 89/48 99 Nasal Cannula 3.0 7/8/18 18:15 71 22 104/50 100 Nasal Cannula 3.0 7/8/18 18:01 75 18 109/59 100 Nasal Cannula 4.0 7/8/18 17:50 76 20 115/66 100 Nasal Cannula 4.0 7/8/18 17:40 78 18 112/64 100 Nasal Cannula 4.0 7/8/18 17:30 75 20 108/67 100 Nasal Cannula 4.0 7/8/18 17:24 76 20 88/47 100 Nasal Cannula 4.0 7/8/18 17:10 37.3 76 20 89/46 99 Nasal Cannula 4.0 7/8/18 17:02 76 20 85/54 98 Nasal Cannula 4.0 7/8/18 16:40 75 24 62/50 100 Nasal Cannula 4.0 7/8/18 16:16 84 20 87/46 97 Nasal Cannula 4.0 7/8/18 16:00 84 22 96/48 93 Nasal Cannula 4.0 7/8/18 15:58 85 7/8/18 15:50 82 16 91/52 99 Room Air 18 15:45 100 Nasal Cannula 4.0 78/18 15:45 91 14 74/38 96 Nasal Cannula 4.0 05/04/18 15:39 85 18 79/44 100 Nasal Cannula 4.0 05/04/18 15:36 37.5 87 20 83/35 87 Room Air Laboratory Results: Last 24 Hours Test 05/04/18 15:50 05/04/18 15:51 05/04/18 16:01 05/04/18 16:10 White Blood Count 16.34 K/uL Red Blood Count 4.08 M/uL Hemoglobin 12.9 g/dL Hematocrit 39.6 % Mean Corpuscular Volume 97.1 fL Mean Corpuscular Hemoglobin 31.6 pg Mean Corpuscular Hemoglobin Concent 32.6 g/dl Platelet Count 203 K/uL Mean Platelet Volume 10.0 fL Neutrophils (%) (Auto) 95.2 % Lymphocytes (%) (Auto) 2.9 % Monocytes (%) (Auto) 1.0 % Eosinophils (%) (Auto) 0.2 % Basophils (%) (Auto) 0.2 % Neutrophils # (Auto) 15.55 K/uL Lymphocytes # (Auto) 0.47 K/uL Monocytes # (Auto) 0.17 K/uL Eosinophils # (Auto) 0.04 K/uL Basophils # (Auto) 0.03 K/uL RDW Standard Deviation 52.7 fL RDW Coefficient of Variation 14.8 % Immature Granulocyte % (Auto) 0.5 % Immature Granulocyte # (Auto) 0.08 K/uL Erythrocyte Sedimentation Rate 39 mm/hr Prothrombin Time 11.6 SECONDS Prothromb Time International Ratio 1.1 Activated Partial Thromboplast Time 25.3 SECONDS Partial Thromboplastin Ratio 1.0 Sodium Level 140 mmol/L Potassium Level 4.1 mmol/L Chloride Level 106 mmol/L Carbon Dioxide Level 24 mmol/L Anion Gap 10.0 mmol/L Blood Urea Nitrogen 28 mg/dl Creatinine 1.69 mg/dl Est Creatinine Clear Calc Drug Dose 34.9 ml/min Estimated GFR () 41.7 Estimated GFR (Non- 36.0 BUN/Creatinine Ratio 16.3 Random Glucose 72 mg/dl Calcium Level 7.7 mg/dl Phosphorus Level 2.3 mg/dl Magnesium Level 1.6 mg/dl Total Bilirubin 0.7 mg/dl Aspartate Amino Transf (AST/SGOT) 15 U/L Alanine Aminotransferase (ALT/SGPT) 16 U/L Alkaline Phosphatase 67 U/L Total Creatine Kinase 100 U/L Creatine Kinase MB 1.2 ng/ml Creatine Kinase MB Ratio 1.2 Troponin I 0.369 ng/ml C-Reactive Protein 2.44 mg/dl Pro-B-Type Natriuretic Peptide 2487 pg/ml Total Protein 6.0 gm/dl Albumin 2.4 gm/dl Globulin 3.6 gm/dl Albumin/Globulin Ratio 0.7 Lipase 50 U/L Procalcitonin 64.19 ng/ml Bedside Glucose 78 mg/dl Bedside Lactic Acid Venous 2.37 mmol/L Urine Color YELLOW Urine Appearance CLOUDY Urine pH 5.0 Urine Specific [place] 1.012 Urine Protein NEG Urine Glucose (UA) NEG Urine Ketones NEG Urine Occult Blood 2+ Urine Nitrite POS Urine Bilirubin NEG Urine Urobilinogen NEG Urine Leukocyte Esterase LARGE Urine WBC (Auto) >30 /hpf Urine RBC (Auto) 0-4 /hpf Urine Hyaline Casts (Auto) 1-5 /lpf Urine Epithelial Cells (Auto) 0-5 /lpf Urine Bacteria (Auto) 2+ Test 05/04/18 16:47 05/04/18 19:50 05/05/18 00:50 05/05/18 04:31 Venous Blood pH 7.29 Venous Blood Partial Pressure CO2 50 mmHg Venous Blood Partial Pressure O2 35 mmHg Venous Blood HCO3 24 mmol/L Venous Blood Oxygen Saturation 61.7 % Venous Blood Base Excess -3.3 mEq/L Lactic Acid Level 2.8 mmol/L Bedside Glucose 90 mg/dl White Blood Count 28.53 K/uL Red Blood Count 3.93 M/uL Hemoglobin 12.4 g/dL Hematocrit 37.7 % Mean Corpuscular Volume 95.9 fL Mean Corpuscular Hemoglobin 31.6 pg Mean Corpuscular Hemoglobin Concent 32.9 g/dl Platelet Count 188 K/uL Mean Platelet Volume 10.2 fL Neutrophils (%) (Auto) 89.8 % Lymphocytes (%) (Auto) 3.8 % Monocytes (%) (Auto) 4.9 % Eosinophils (%) (Auto) 0.6 % Basophils (%) (Auto) 0.2 % Neutrophils # (Auto) 25.60 K/uL Lymphocytes # (Auto) 1.09 K/uL Monocytes # (Auto) 1.40 K/uL Eosinophils # (Auto) 0.18 K/uL Basophils # (Auto) 0.05 K/uL RDW Standard Deviation 52.3 fL RDW Coefficient of Variation 14.9 % Immature Granulocyte % (Auto) 0.7 % Immature Granulocyte # (Auto) 0.21 K/uL Echinocytes 1+ Prothrombin Time 13.7 SECONDS Prothromb Time International Ratio 1.3 Activated Partial Thromboplast Time 33.8 SECONDS Partial Thromboplastin Ratio 1.3 Sodium Level 140 mmol/L Potassium Level 4.2 mmol/L Chloride Level 108 mmol/L Carbon Dioxide Level 23 mmol/L Anion Gap 9.0 mmol/L Blood Urea Nitrogen 26 mg/dl Creatinine 1.84 mg/dl Est Creatinine Clear Calc Drug Dose 33.2 ml/min Estimated GFR () 37.6 Estimated GFR (Non- 32.5 BUN/Creatinine Ratio 14.2 Random Glucose 95 mg/dl Calcium Level 7.1 mg/dl Phosphorus Level 3.2 mg/dl Magnesium Level 2.0 mg/dl Total Bilirubin 1.1 mg/dl Direct Bilirubin 0.5 mg/dl Aspartate Amino Transf (AST/SGOT) 22 U/L Alanine Aminotransferase (ALT/SGPT) 17 U/L Alkaline Phosphatase 62 U/L Total Creatine Kinase 289 U/L Troponin I 0.334 ng/ml Total Protein 5.8 gm/dl Albumin 2.1 gm/dl Lipase 29 U/L Test 05/05/18 06:28 Bedside Glucose 85 mg/dl
--- NOTE | 2018-05-05 10:56 | [facility] Operative Report ---
Operative Report Operative Date May 05, 2018. Pre-Operative Diagnosis Left Hydronephrosis, Sepsis Post-Operative Diagnosis Same Procedure(s) Performed Cystoscopy with left stent placement and retrograde pyelogram Surgeon Kev Estimated Blood Loss Minimal Findings Left hydronephrosis. Specimens 1. Urine Left kidney Drains 6 Fr Multilength Anesthesia Type MAC Complication(s) none Disposition Recovery Room / PACU Indications Risks and benefits discussed at length. WIll proceed. Description of Procedure Patient was consented and brought back to the operating room. Patient was placed under anesthesia in the supine position and moved to the dorsal lithotomy position. Patient was prepped and draped in the regular sterile fashion. A time out was completed. A 30degree Cystoscope was placed into the bladder and the entire bladder was examined. The UO's were identified. The left was cannulized with a catheter and a retrograde pyelogram was completed. A wire was then placed. With the wire in place, a 6 Fr Multilength Double J stent was placed. It was confirmed with fluoroscopy. With the stent in place, the bladder was filled and the scope was removed. An 20 Fr Coude catheter was placed with good drainage. The patient was cleaned, aroused from anesthesia, and transferred to the pacu in stable condition having tolerated the procedure well with no complications. I was present and participated in all aspects of the procedure. The patient will be monitored in the PACU until transferred. I attest to the content of the Intraoperative Record and any orders documented therein. Any exceptions are noted below.
--- NOTE | 2018-05-05 11:22 | Anesthesiology Progress Note ---
Anesthesia Post Op Note Date & Time May 05, 2018 at 11:22 Vital Signs Pain Intensity: 0.0 Vital Signs Past 12 Hours Date Time Temp Pulse Resp B/P (MAP) Pulse Ox O2 Delivery O2 Flow Rate FiO2 05/05/18 10:00 36.9 70 18 131/61 (84) 96 Nasal Cannula 2.0 05/05/18 10:00 75 18 131/61 (88) 97 05/05/18 09:45 69 19 120/60 (74) 96 05/05/18 09:30 71 15 107/59 (80) 98 05/05/18 09:30 71 15 107/59 (80) 98 05/05/18 09:15 68 20 105/44 (75) 98 05/05/18 09:00 76 20 107/49 (78) 98 05/05/18 09:00 67 18 107/49 (68) 96 Nasal Cannula 2.0 05/05/18 08:45 66 10 97/68 (77) 95 05/05/18 08:31 77 14 113/54 (69) 97 05/05/18 08:30 70 18 122/43 (83) 92 05/05/18 08:16 70 18 122/43 (83) 92 05/05/18 08:15 70 18 122/43 (83) 92 05/05/18 08:01 66 20 123/52 (90) 97 05/05/18 08:00 Nasal Cannula 2.0 05/05/18 08:00 36.8 72 18 123/52 (75) 98 Nasal Cannula 2.0 05/05/18 08:00 66 20 123/52 (90) 97 05/05/18 07:45 66 18 111/55 (91) 97 05/05/18 07:30 70 18 115/64 (75) 84 05/05/18 07:15 68 21 100/56 (80) 97 05/05/18 07:00 64 18 101/58 (76) 96 05/05/18 06:00 67 20 114/47 (69) 95 Nasal Cannula 2.0 05/05/18 06:00 67 20 05/05/18 05:00 70 18 102/58 (73) 96 Nasal Cannula 2.0 05/05/18 05:00 70 18 96 05/05/18 04:00 36.9 69 22 110/43 (65) 96 Nasal Cannula 2.0 05/05/18 04:00 69 22 96 05/05/18 03:00 70 17 98 05/05/18 03:00 70 17 113/50 (71) 98 Nasal Cannula 2.0 05/05/18 02:00 70 19 98 05/05/18 02:00 70 19 123/64 (83) 98 2.0 05/05/18 01:00 69 18 111/50 (70) 97 Nasal Cannula 2.0 05/05/18 01:00 69 18 97 05/05/18 00:58 Nasal Cannula 2.0 05/05/18 00:01 37.0 75 17 115/45 (68) 98 Nasal Cannula 2.0 05/05/18 00:01 75 17 115/45 (78) 98 Notes Mental Status: alert / awake / arousable, participated in evaluation Pt Amnestic to Procedure: Yes Nausea / Vomiting: adequately controlled Pain: adequately controlled Airway Patency, RR, SpO2: stable & adequate BP & HR: stable & adequate Hydration State: stable & adequate Anesthetic Complications: no major complications apparent
--- NOTE | 2018-05-05 12:27 | DIAGNOSTIC IMAGING REPORT ---
RETROGRADE INCLUDES KUB CLINICAL HISTORY: 87 years-old Male presenting with LT STENT FOR SEPSIS. TECHNIQUE: 4 fluoroscopic image(s) recorded as part of an intraoperative procedure. COMPARISON: None. FINDINGS/IMPRESSION: A catheter was introduced into the left ureter. Contrast evident in the renal pelvis. A guidewire was introduced into an upper pole calyx. Subsequently, a left ureteral stent was placed. Kirby catheter noted in the urinary bladder. Please see surgical report for further details. Dose area product (mGy.cm^2): 3335.2. Fluoroscopy time: 30.3 seconds. Number of fluoroscopic spot images: 0. Electronically signed by: Aníbal Harmon M.D. 05/05/2018 12:25 PM Dictated Date/Time: 05/05/2018 12:24 PM
--- NOTE | 2018-05-05 16:02 | Progress Note ---
Subjective Date of Service: May 05, 2018. Subjective Pt evaluation today including: conversation w/ patient, conversation w/ family (), physical exam, lab review, conversation w/ sr solutions consultant, review of inpatient medication list Pain: no pain PO Intake: NPO for surgery Voiding: morgan catheter in place patient reports feeling well, better than on admission he denies any pain discussed with urology, Dr. Angulo, planned for cystoscopy with stent had stent placed in left ureter, no complications discussed with Dr. Jack, appreciate his recommendations reviewed labs, Cr up to 1.84, WBC up to 28k Problem List Medical Problems: (1) Altered mental status Status: Acute (2) Dislodged Morgan catheter Status: Acute (3) Hypotension Status: Acute (4) Sepsis Status: Acute (5) Urethral laceration Status: Acute (6) UTI (urinary tract infection) Status: Acute Review of Systems Constitutional: + weakness, + fatigue Neurologic: + memory loss, + weakness All Other Systems: Reviewed and Negative Medications Current Inpatient Medications Medications (Trade) Dose Ordered Sig/Bob Route Start Time Stop Time Status Last Admin Dose Admin Sodium Chloride 1,000 ml @ 150 mls/hr [id number] IV 05/04/18 20:23 06/03/18 19:27 05/05/18 15:43 150 MLS/HR Piperacillin Sod/ Tazobactam Sod 4.5 gm/Dextrose 120 ml @ 30 mls/hr Q8H IV 05/05/18 00:00 05/15/18 00:00 05/05/18 15:40 30 MLS/HR Albuterol (Ventolin Hfa Inhaler) 2 puffs Q6 INH 05/05/18 00:00 06/04/18 00:00 05/05/18 12:14 2 PUFFS Cetirizine HCl (zyrTEC TAB) 10 mg DAILY PO 05/05/18 09:00 06/04/18 08:59 05/05/18 07:46 10 MG Clopidogrel Bisulfate (plAVix TAB) 75 mg DAILY PO 05/05/18 09:00 06/04/18 08:59 05/05/18 07:45 75 MG Cyanocobalamin (Vitamin B-12 Tab) 1,000 mcg DAILY PO 05/05/18 09:00 06/04/18 08:59 05/05/18 07:46 1,000 MCG Escitalopram Oxalate (Lexapro Tab) 5 mg DAILY PO 05/05/18 09:00 06/04/18 08:59 05/05/18 07:45 5 MG Salmeterol Xinafoate/ Fluticasone (Advair Diskus 500/50 Inh) 1 puff BID INH 05/04/18 21:00 06/03/18 20:59 05/05/18 07:44 1 PUFF Galantamine Hydrobromide (Razadyne Cap) 16 mg DAILY PO 05/05/18 09:00 06/04/18 08:59 05/05/18 09:16 16 MG Montelukast Sodium (Singulair Tab) 10 mg DAILY PO 05/05/18 09:00 06/04/18 08:59 05/05/18 07:45 10 MG Potassium Chloride (Klor-Con M10) 10 meq DAILY PO 05/05/18 09:00 06/04/18 08:59 05/05/18 07:45 10 MEQ Ropinirole HCl (Requip Tab) 0.25 mg HS PO 05/04/18 21:00 06/03/18 20:59 Sodium Chloride ([place] 128 Oph Soln) 1 drops DAILY OPR 05/05/18 09:00 06/04/18 08:59 05/05/18 07:44 1 DROPS Tiotropium [place] (Spiriva Handihaler Inhaler) 1 puff DAILY INH 05/05/18 09:00 06/04/18 08:59 05/05/18 07:44 1 PUFF Miscellaneous Information (Order Awaiting Action) 1 ea QS N/A 05/05/18 00:00 06/04/18 00:00 Norepinephrine Bitartrate 8 mg/ Dextrose 508 ml @ 0 mls/hr Q0M PRN IV 05/04/18 20:15 06/03/18 20:14 05/05/18 06:32 60.8 MLS/HR Miscellaneous Information (Consult) 1 ea UD PRN N/A 05/04/18 20:15 06/03/18 20:14 Thiamine HCl 200 mg/Sodium Chloride 52 ml @ 208 mls/hr QAM IV 05/05/18 09:00 06/04/18 08:59 05/05/18 07:49 208 MLS/HR Heparin Sodium (Porcine) (Heparin Sq 5000 Unit/0.5ml) 5,000 unit Q8 SQ 05/05/18 06:00 06/04/18 05:59 05/05/18 13:23 5,000 UNIT Miscellaneous Information (Icu Protocol For Hyperglycemia) 1 ea PRN PRN N/A 05/04/18 22:30 05/06/18 22:29 Heparin Sodium (Porcine) (Heparin 10 Unit/ ml 5 ml Flush) 5 ml PRN PRN FLUSH 05/05/18 01:00 06/04/18 00:59 Furosemide 40 mg/ Syringe 4 ml @ 4 mls/min BID17 IV 05/05/18 17:00 06/04/18 16:59 Objective Vital Signs Date Time Temp Pulse Resp B/P (MAP) Pulse Ox O2 Delivery O2 Flow Rate FiO2 05/05/18 15:00 79 18 98/43 (60) 95 05/05/18 14:45 82 16 102/54 (65) 90 05/05/18 14:30 75 20 110/48 (68) 95 Nasal Cannula 3.0 05/05/18 14:30 82 16 110/48 (67) 96 05/05/18 14:15 83 17 110/61 (67) 83 05/05/18 14:15 83 17 110/61 (77) 94 Nasal Cannula 3.0 05/05/18 14:00 68 16 104/48 (60) 96 05/05/18 14:00 67 22 104/48 (66) 92 Nasal Cannula 3.0 05/05/18 13:45 72 12 95/51 (53) 96 05/05/18 13:45 72 16 122/63 (82) 94 Nasal Cannula 3.0 05/05/18 13:30 70 18 115/50 (62) 97 05/05/18 13:15 84 18 122/68 (73) 95 05/05/18 13:00 69 16 110/57 (75) 95 05/05/18 13:00 72 18 110/66 (81) 96 Nasal Cannula 3.0 05/05/18 12:45 68 13 119/58 (78) 98 Nasal Cannula 3.0 05/05/18 12:45 68 13 119/58 (78) 98 05/05/18 12:30 68 18 126/51 (67) 96 05/05/18 12:30 68 18 126/51 (76) 96 Nasal Cannula 3.0 05/05/18 12:15 66 14 90/49 (65) 88 05/05/18 12:15 66 20 104/56 (72) 97 Nasal Cannula 3.0 05/05/18 12:00 36.9 68 18 96/44 (61) 95 Nasal Cannula 3.0 05/05/18 12:00 Nasal Cannula 3.0 05/05/18 12:00 84 16 96/44 (67) 76 05/05/18 11:45 69 15 105/58 (72) 93 05/05/18 11:30 71 18 110/56 (68) 91 05/05/18 11:25 71 18 104/52 (58) 90 05/05/18 11:10 36.9 71 16 113/47 (69) 92 Nasal Cannula 2.0 05/05/18 11:10 82 36 113/47 (77) 94 05/05/18 10:00 36.9 70 18 131/61 (84) 96 Nasal Cannula 2.0 05/05/18 10:00 75 18 131/61 (88) 97 05/05/18 09:45 69 19 120/60 (74) 96 05/05/18 09:30 71 15 107/59 (80) 98 05/05/18 09:30 71 15 107/59 (80) 98 05/05/18 09:15 68 20 105/44 (75) 98 05/05/18 09:00 76 20 107/49 (78) 98 05/05/18 09:00 67 18 107/49 (68) 96 Nasal Cannula 2.0 05/05/18 08:45 66 10 97/68 (77) 95 05/05/18 08:31 77 14 113/54 (69) 97 05/05/18 08:30 70 18 122/43 (83) 92 05/05/18 08:16 70 18 122/43 (83) 92 05/05/18 08:15 70 18 122/43 (83) 92 05/05/18 08:01 66 20 123/52 (90) 97 05/05/18 08:00 Nasal Cannula 2.0 05/05/18 08:00 36.8 72 18 123/52 (75) 98 Nasal Cannula 2.0 05/05/18 08:00 66 20 123/52 (90) 97 18 07:45 66 18 111/55 (91) 97 05/05/18 07:30 70 18 115/64 (75) 84 05/05/18 07:15 68 21 100/56 (80) 97 05/05/18 07:00 64 18 101/58 (76) 96 05/05/18 06:00 67 20 114/47 (69) 95 Nasal Cannula 2.0 05/05/18 06:00 67 20 05/05/18 05:00 70 18 102/58 (73) 96 Nasal Cannula 2.0 05/05/18 05:00 70 18 96 05/05/18 04:00 36.9 69 22 110/43 (65) 96 Nasal Cannula 2.0 05/05/18 04:00 69 22 96 05/05/18 03:00 70 17 98 05/05/18 03:00 70 17 113/50 (71) 98 Nasal Cannula 2.0 05/05/18 02:00 70 19 98 05/05/18 02:00 70 19 123/64 (83) 98 2.0 05/05/18 01:00 69 18 111/50 (70) 97 Nasal Cannula 2.0 05/05/18 01:00 69 18 97 05/05/18 00:58 Nasal Cannula 2.0 05/05/18 00:01 37.0 75 17 115/45 (68) 98 Nasal Cannula 2.0 05/05/18 00:01 75 17 115/45 (78) 98 05/04/18 23:00 67 18 85/36 (52) 87 Nasal Cannula 2.0 05/04/18 23:00 67 18 87 05/04/18 22:00 68 20 131/69 (89) 95 Nasal Cannula 2.0 05/04/18 22:00 68 20 95 05/04/18 21:00 68 16 119/58 (76) 97 18 21:00 36.9 68 16 119/58 (78) 97 Nasal Cannula 2.0 05/04/18 20:05 36.9 70 18 105/58 97 Nasal Cannula 3.0 05/04/18 19:55 67 18 107/49 98 18 19:31 107/49 05/04/18 19:30 67 18 98 7/8/18 19:29 104/52 05/04/18 19:15 66 24 106/74 97 05/04/18 19:14 123/81 05/04/18 19:00 68 24 123/81 97 05/04/18 18:42 37.1 77 20 89/48 99 Nasal Cannula 3.0 05/04/18 18:15 71 22 104/50 100 Nasal Cannula 3.0 05/04/18 18:01 75 18 109/59 100 Nasal Cannula 4.0 05/04/18 17:50 76 20 115/66 100 Nasal Cannula 4.0 05/04/18 17:40 78 18 112/64 100 Nasal Cannula 4.0 05/04/18 17:30 75 20 108/67 100 Nasal Cannula 4.0 05/04/18 17:24 76 20 88/47 100 Nasal Cannula 4.0 05/04/18 17:10 37.3 76 20 89/46 99 Nasal Cannula 4.0 05/04/18 17:02 76 20 85/54 98 Nasal Cannula 4.0 05/04/18 16:40 75 24 62/50 100 Nasal Cannula 4.0 05/04/18 16:16 84 20 87/46 97 Nasal Cannula 4.0 05/04/18 16:00 84 22 96/48 93 Nasal Cannula 4.0 05/04/18 15:58 85 Physical Exam General Appearance: no apparent distress, + obese Eyes: normal inspection, EOMI, sclerae normal ENT: normal ENT inspection, hearing grossly normal, pharynx normal Neck: supple, no adenopathy, no JVD, trachea midline Respiratory/Chest: chest non-tender, lungs clear, normal breath sounds, no respiratory distress, no accessory muscle use Cardiovascular: regular rate, rhythm, no edema, no gallop, no JVD, no murmur Abdomen: normal bowel sounds, non tender, soft, no organomegaly Extremities: normal range of motion, non-tender, normal inspection, no pedal edema, no calf tenderness, pelvis stable Neurologic/Psychiatric: loss prevention supervisor II-XII nml as tested, alert, normal mood/affect, oriented x 3, + motor weakness Skin: normal color, warm/dry, no rash Laboratory Results Last 24 Hours Test 05/04/18 15:51 05/04/18 16:01 05/04/18 16:10 05/04/18 16:47 Bedside Glucose 78 mg/dl Bedside Lactic Acid Venous 2.37 mmol/L Urine Color YELLOW Urine Appearance CLOUDY Urine pH 5.0 Urine Specific [place] 1.012 Urine Protein NEG Urine Glucose (UA) NEG Urine Ketones NEG Urine Occult Blood 2+ Urine Nitrite POS Urine Bilirubin NEG Urine Urobilinogen NEG Urine Leukocyte Esterase LARGE Urine WBC (Auto) >30 /hpf Urine RBC (Auto) 0-4 /hpf Urine Hyaline Casts (Auto) 1-5 /lpf Urine Epithelial Cells (Auto) 0-5 /lpf Urine Bacteria (Auto) 2+ Venous Blood pH 7.29 Venous Blood Partial Pressure CO2 50 mmHg Venous Blood Partial Pressure O2 35 mmHg Venous Blood HCO3 24 mmol/L Venous Blood Oxygen Saturation 61.7 % Venous Blood Base Excess -3.3 mEq/L Test 05/04/18 19:50 05/05/18 00:50 05/05/18 04:31 05/05/18 06:28 Lactic Acid Level 2.8 mmol/L Bedside Glucose 90 mg/dl 85 mg/dl White Blood Count 28.53 K/uL Red Blood Count 3.93 M/uL Hemoglobin 12.4 g/dL Hematocrit 37.7 % Mean Corpuscular Volume 95.9 fL Mean Corpuscular Hemoglobin 31.6 pg Mean Corpuscular Hemoglobin Concent 32.9 g/dl Platelet Count 188 K/uL Mean Platelet Volume 10.2 fL Neutrophils (%) (Auto) 89.8 % Lymphocytes (%) (Auto) 3.8 % Monocytes (%) (Auto) 4.9 % Eosinophils (%) (Auto) 0.6 % Basophils (%) (Auto) 0.2 % Neutrophils # (Auto) 25.60 K/uL Lymphocytes # (Auto) 1.09 K/uL Monocytes # (Auto) 1.40 K/uL Eosinophils # (Auto) 0.18 K/uL Basophils # (Auto) 0.05 K/uL RDW Standard Deviation 52.3 fL RDW Coefficient of Variation 14.9 % Immature Granulocyte % (Auto) 0.7 % Immature Granulocyte # (Auto) 0.21 K/uL Echinocytes 1+ Prothrombin Time 13.7 SECONDS Prothromb Time International Ratio 1.3 Activated Partial Thromboplast Time 33.8 SECONDS Partial Thromboplastin Ratio 1.3 Sodium Level 140 mmol/L Potassium Level 4.2 mmol/L Chloride Level 108 mmol/L Carbon Dioxide Level 23 mmol/L Anion Gap 9.0 mmol/L Blood Urea Nitrogen 26 mg/dl Creatinine 1.84 mg/dl Est Creatinine Clear Calc Drug Dose 33.2 ml/min Estimated GFR () 37.6 Estimated GFR (Non- 32.5 BUN/Creatinine Ratio 14.2 Random Glucose 95 mg/dl Calcium Level 7.1 mg/dl Phosphorus Level 3.2 mg/dl Magnesium Level 2.0 mg/dl Total Bilirubin 1.1 mg/dl Direct Bilirubin 0.5 mg/dl Aspartate Amino Transf (AST/SGOT) 22 U/L Alanine Aminotransferase (ALT/SGPT) 17 U/L Alkaline Phosphatase 62 U/L Total Creatine Kinase 289 U/L Troponin I 0.334 ng/ml Total Protein 5.8 gm/dl Albumin 2.1 gm/dl Lipase 29 U/L Test 05/05/18 13:55 Troponin I 0.284 ng/ml Assessment and Plan Septic shock in an 87 yo male with septic shock due to UTI - Septic shock due to UTI blood culture with gram positive and gram negative bacilli urine culture growing gram negative bacilli WBC up to 28k, afebrile blood pressure stable after fluid resuscitation and low dose of Levophed, try to wean off pressors urine output adequate s/p cystoscopy and left ureteral stent placed for left hydronephrosis, has chronic UPJ obstruction continue in ICU, check labs tomorrow continue on Zosyn, follow up final culture - DB: Cr up to 1.84 continue fluids at 150cc/hr potassium stable repeat labs in AM making adequate urine - Type II NSTEMI due to demand ischemia troponin trending down, no chest pain demand ischemia in the setting of hypotensive shock, no further work up planned - COPD, Restless leg syndrome, HTN: chronic issues Code Level 5 DVT prophylaxis: Heparin SC
[2018-05-05] MEDS ORDERED: FUROSEMIDE INJ 40 MG in SYRINGE 0 ML IV SCH (17:00)
[2018-05-05] MEDS: ROPINIROLE HCL 0.25 MG TAB PO SCH (21:29)
[2018-05-06] VITALS (17 sets, daily range): BP systolic 108–149; BP diastolic 48–87; PULSE 68–92; TEMP 36.5–37.6; O2SAT 91–96
[2018-05-06] MEDS: PIPERACILL/TAZOBAC IV 4.5 GM in DEXTROSE 5% 100ML 100 ML IV SCH (00:33)
[2018-05-06] MEDS: ALBUTEROL HFA 8 GM INHALER INH SCH ×4 (00:34→18:00)
[2018-05-06 04:44] LABS: BASO % 0.2 %; BASO ABS # 0.03 K/uL (0-0.2); EOS % 1.4 %; EOS ABS # 0.26 K/uL (0-0.5); HEMATOCRIT 35.2 % (42-52); HEMOGLOBIN 11.5 g/dL (14.0-18.0); IG# 0.09 K/uL (0.00-0.02); LYMPH % 3.8 %; LYMPH ABS # 0.72 K/uL (1.2-3.4); MEAN CELL VOLUME 97.2 fL (80-100); MEAN CORPUSCULAR HEMOGLOBIN 31.8 pg (25-34); MEAN CORPUSCULAR HGB CONC 32.7 g/dl (32-36); MEAN PLATELET VOLUME 9.8 fL (7.4-10.4); MONO % 4.3 %; MONO ABS # 0.81 K/uL (0.11-0.59); NEUT % 89.8 %; NEUT ABS # 17.05 K/uL (1.4-6.5); PLATELET COUNT 137 K/uL (130-400); RED CELL DISTRIBUTION WIDTH CV 15.3 % (11.5-14.5); RED CELL DISTRIBUTION WIDTH SD 54.5 fL (36.4-46.3); WHITE BLOOD COUNT 18.96 K/uL (4.8-10.8)
[2018-05-06 04:56] LABS: INR 1.2 (0.9-1.1); PTT PATIENT 34.8 SECONDS (21.0-31.0)
[2018-05-06 05:04] LABS: ALBUMIN 2.1 gm/dl (3.4-5.0); CALCIUM 7.1 mg/dl (8.5-10.1); CREATININE 1.24 mg/dl (0.60-1.40)
[2018-05-06 05:21] LABS: PHOSPHORUS 2.8 mg/dl (2.5-4.9); TOTAL PROTEIN 5.8 gm/dl (6.4-8.2)
[2018-05-06] MEDS: SODIUM CHLORIDE 0.9% 1000ML 1,000 ML IV SCH (05:30)
[2018-05-06] MEDS: HEPARIN SOD 5000 UNIT/0.5 ML CARP SQ SCH ×3 (05:47→21:01)
--- NOTE | 2018-05-06 07:42 | Anesthesiology Progress Note ---
Anesthesia Post Op Note Date & Time May 06, 2018 at 07:42 Vital Signs Pain Intensity: 0.0 Vital Signs Past 12 Hours Date Time Temp Pulse Resp B/P (MAP) Pulse Ox O2 Delivery O2 Flow Rate FiO2 05/06/18 06:00 74 93 05/06/18 06:00 74 93 Nasal Cannula 3.0 05/06/18 05:00 69 22 114/59 (77) 96 Nasal Cannula 3.0 05/06/18 05:00 69 22 114/59 (76) 96 05/06/18 04:00 74 13 119/48 (56) 96 05/06/18 04:00 36.8 74 13 119/48 (71) 96 Nasal Cannula 3.0 05/06/18 03:00 79 22 134/78 (96) 94 Nasal Cannula 3.0 05/06/18 03:00 79 22 134/78 (88) 94 05/06/18 02:00 82 14 113/55 (74) 91 Nasal Cannula 3.0 05/06/18 02:00 82 14 113/55 (79) 91 05/06/18 01:00 84 14 108/58 (81) 91 05/06/18 01:00 84 14 108/58 (75) 91 Nasal Cannula 3.0 05/06/18 00:00 36.9 85 7 112/71 (85) 92 Nasal Cannula 3.0 05/06/18 00:00 85 7 112/71 (84) 92 05/05/18 23:00 79 17 126/62 (67) 93 05/05/18 23:00 79 17 126/62 (83) 93 Nasal Cannula 3.0 05/05/18 22:00 90 19 113/54 (73) 91 Nasal Cannula 3.0 05/05/18 22:00 90 19 113/54 (88) 91 05/05/18 21:00 99 17 123/77 (92) 94 Nasal Cannula 3.0 05/05/18 21:00 99 17 123/77 (99) 94 05/05/18 20:00 81 20 95/53 (72) 85 05/05/18 20:00 Nasal Cannula 3.0 05/05/18 20:00 37.3 81 20 95/53 (67) 85 Nasal Cannula 3.0 Notes Mental Status: alert / awake / arousable, participated in evaluation Pt Amnestic to Procedure: Yes Nausea / Vomiting: adequately controlled Pain: adequately controlled Airway Patency, RR, SpO2: stable & adequate BP & HR: stable & adequate Hydration State: stable & adequate Anesthetic Complications: no major complications apparent
--- NOTE | 2018-05-06 08:40 | Urology Progress Note ---
Progress Note Date of Service May 06, 2018. Subjective Pt evaluation today including: conversation w/ patient, chart review, lab review Pain: denies Voiding: morgan catheter in place (draining light pink urine) 87 year old male, POD#1 s/p cystoscopy, left ureteral stent placement for stone with sepsis. Reports feeling well this morning. Denies pain today, states that stent is not bothersome. Denies nausea/vomiting. Remains on norepi. Creatinine is improving, 1.24 today. White count is also improving. Blood and urine cultures are preliminary positive, urine culture growing e. coli. Patient remains on IV antibiotics. No fevers overnight. Constitutional: No fever, No chills Respiratory: + cough, No shortness of breath Cardiovascular: No chest pain Abdomen: No pain, No nausea, No vomiting Male : + see HPI Neurologic: + memory loss (baseline dementia), No numbness/tingling Objective Vital Signs Date Time Temp Pulse Resp B/P (MAP) Pulse Ox O2 Delivery O2 Flow Rate FiO2 05/06/18 06:00 74 93 05/06/18 06:00 74 93 Nasal Cannula 3.0 05/06/18 05:00 69 22 114/59 (77) 96 Nasal Cannula 3.0 05/06/18 05:00 69 22 114/59 (76) 96 05/06/18 04:00 74 13 119/48 (56) 96 05/06/18 04:00 36.8 74 13 119/48 (71) 96 Nasal Cannula 3.0 05/06/18 03:00 79 22 134/78 (96) 94 Nasal Cannula 3.0 05/06/18 03:00 79 22 134/78 (88) 94 05/06/18 02:00 82 14 113/55 (74) 91 Nasal Cannula 3.0 05/06/18 02:00 82 14 113/55 (79) 91 05/06/18 01:00 84 14 108/58 (81) 91 05/06/18 01:00 84 14 108/58 (75) 91 Nasal Cannula 3.0 05/06/18 00:00 36.9 85 7 112/71 (85) 92 Nasal Cannula 3.0 05/06/18 00:00 85 7 112/71 (84) 92 05/05/18 23:00 79 17 126/62 (67) 93 05/05/18 23:00 79 17 126/62 (83) 93 Nasal Cannula 3.0 05/05/18 22:00 90 19 113/54 (73) 91 Nasal Cannula 3.0 05/05/18 22:00 90 19 113/54 (88) 91 05/05/18 21:00 99 17 123/77 (92) 94 Nasal Cannula 3.0 05/05/18 21:00 99 17 123/77 (99) 94 05/05/18 20:00 81 20 95/53 (72) 85 05/05/18 20:00 Nasal Cannula 3.0 05/05/18 20:00 37.3 81 20 95/53 (67) 85 Nasal Cannula 3.0 05/05/18 19:01 75 16 101/48 (60) 94 05/05/18 19:00 75 13 101/48 (65) 93 Nasal Cannula 3.0 05/05/18 19:00 75 13 93 05/05/18 18:00 71 21 102/56 (71) 93 05/05/18 17:00 74 18 109/56 (73) 95 05/05/18 16:00 37.1 78 20 110/53 (72) 95 Nasal Cannula 3.0 05/05/18 16:00 Nasal Cannula 3.0 05/05/18 15:30 72 16 93/58 (70) 93 05/05/18 15:00 79 18 98/43 (60) 95 05/05/18 15:00 79 15 98/43 (61) 95 05/05/18 14:45 82 16 102/54 (65) 90 05/05/18 14:30 75 20 110/48 (68) 95 Nasal Cannula 3.0 05/05/18 14:30 82 16 110/48 (67) 96 18 14:15 83 17 110/61 (67) 83 18 14:15 83 17 110/61 (77) 94 Nasal Cannula 3.0 05/05/18 14:00 68 16 104/48 (60) 96 18 14:00 67 22 104/48 (66) 92 Nasal Cannula 3.0 05/05/18 13:45 72 12 95/51 (53) 96 05/05/18 13:45 72 16 122/63 (82) 94 Nasal Cannula 3.0 05/05/18 13:30 70 18 115/50 (62) 97 05/05/18 13:15 84 18 122/68 (73) 95 05/05/18 13:00 69 16 110/57 (75) 95 05/05/18 13:00 72 18 110/66 (81) 96 Nasal Cannula 3.0 05/05/18 12:45 68 13 119/58 (78) 98 Nasal Cannula 3.0 05/05/18 12:45 68 13 119/58 (78) 98 05/05/18 12:30 68 18 126/51 (67) 96 05/05/18 12:30 68 18 126/51 (76) 96 Nasal Cannula 3.0 05/05/18 12:15 66 14 90/49 (65) 88 05/05/18 12:15 66 20 104/56 (72) 97 Nasal Cannula 3.0 05/05/18 12:00 36.9 68 18 96/44 (61) 95 Nasal Cannula 3.0 05/05/18 12:00 Nasal Cannula 3.0 05/05/18 12:00 84 16 96/44 (67) 76 05/05/18 11:45 69 15 105/58 (72) 93 05/05/18 11:30 71 18 110/56 (68) 91 05/05/18 11:25 71 18 104/52 (58) 90 05/05/18 11:10 36.9 71 16 113/47 (69) 92 Nasal Cannula 2.0 05/05/18 11:10 82 36 113/47 (77) 94 05/05/18 10:00 36.9 70 18 131/61 (84) 96 Nasal Cannula 2.0 05/05/18 10:00 75 18 131/61 (88) 97 05/05/18 09:45 69 19 120/60 (74) 96 05/05/18 09:30 71 15 107/59 (80) 98 05/05/18 09:30 71 15 107/59 (80) 98 05/05/18 09:15 68 20 105/44 (75) 98 05/05/18 09:00 76 20 107/49 (78) 98 05/05/18 09:00 67 18 107/49 (68) 96 Nasal Cannula 2.0 05/05/18 08:45 66 10 97/68 (77) 95 05/05/18 08:31 77 14 113/54 (69) 97 05/05/18 08:30 70 18 122/43 (83) 92 Physical Exam General Appearance: no apparent distress Eyes: normal inspection ENT: hearing grossly normal Neck: no JVD Respiratory/Chest: no respiratory distress, no accessory muscle use Cardiovascular: no JVD Abdomen: non tender Extremities: normal inspection Neurologic/Psychiatric: alert, normal mood/affect, oriented x 3 Skin: normal color, warm/dry Laboratory Results Last 24 Hours Test 05/05/18 12:11 05/05/18 13:55 05/05/18 18:15 05/06/18 00:08 Bedside Glucose 86 mg/dl 78 mg/dl 85 mg/dl Troponin I 0.284 ng/ml Test 05/06/18 04:25 05/06/18 06:30 White Blood Count 18.96 K/uL Red Blood Count 3.62 M/uL Hemoglobin 11.5 g/dL Hematocrit 35.2 % Mean Corpuscular Volume 97.2 fL Mean Corpuscular Hemoglobin 31.8 pg Mean Corpuscular Hemoglobin Concent 32.7 g/dl Platelet Count 137 K/uL Mean Platelet Volume 9.8 fL Neutrophils (%) (Auto) 89.8 % Lymphocytes (%) (Auto) 3.8 % Monocytes (%) (Auto) 4.3 % Eosinophils (%) (Auto) 1.4 % Basophils (%) (Auto) 0.2 % Neutrophils # (Auto) 17.05 K/uL Lymphocytes # (Auto) 0.72 K/uL Monocytes # (Auto) 0.81 K/uL Eosinophils # (Auto) 0.26 K/uL Basophils # (Auto) 0.03 K/uL RDW Standard Deviation 54.5 fL RDW Coefficient of Variation 15.3 % Immature Granulocyte % (Auto) 0.5 % Immature Granulocyte # (Auto) 0.09 K/uL Prothrombin Time 12.4 SECONDS Prothromb Time International Ratio 1.2 Activated Partial Thromboplast Time 34.8 SECONDS Partial Thromboplastin Ratio 1.3 Sodium Level 142 mmol/L Potassium Level 4.0 mmol/L Chloride Level 112 mmol/L Carbon Dioxide Level 22 mmol/L Anion Gap 8.0 mmol/L Blood Urea Nitrogen 18 mg/dl Creatinine 1.24 mg/dl Est Creatinine Clear Calc Drug Dose 49.5 ml/min Estimated GFR () 60.6 Estimated GFR (Non- 52.3 BUN/Creatinine Ratio 14.5 Random Glucose 92 mg/dl Calcium Level 7.1 mg/dl Phosphorus Level 2.8 mg/dl Magnesium Level 2.1 mg/dl Total Bilirubin 0.6 mg/dl Direct Bilirubin 0.3 mg/dl Aspartate Amino Transf (AST/SGOT) 21 U/L Alanine Aminotransferase (ALT/SGPT) 15 U/L Alkaline Phosphatase 61 U/L Pro-B-Type Natriuretic Peptide 3451 pg/ml Total Protein 5.8 gm/dl Albumin 2.1 gm/dl Lipase 29 U/L Bedside Glucose 90 mg/dl Assessment and Plan 87 year old male POD#1, cystoscopy, left ureteral stent placement for stone with sepsis. Tolerating stent well. Morgan catheter remains in place, draining light pink urine. Creatinine and white count improving. Final blood and urine cultures are still pending. Transition to PO antibiotics for 14 days total therapy prior to DC home. Trial of void when morgan catheter no longer needed by primary service. Will arrange for outpatient follow up with Dr. Mueller in 1 week. Will continue to follow along with primary service.
[2018-05-06] MEDS: FLUTICASONE/SALMETEROL (ADVAIR) 500/50 INH 14 PUFF INH SCH ×2 (09:14→21:00)
[2018-05-06] MEDS: TIOTROPIUM BROMIDE 5 PUFF/90 MCG INH INH SCH (09:15)
[2018-05-06] MEDS: CEFTRIAXONE SOD INJ 2,000 MG in DEXTROSE 5% 50ML 50 ML IV SCH (09:15)
[2018-05-06] MEDS: THIAMINE HCL INJ 200 MG in SODIUM CHLORIDE 0.9% 50ML 50 ML IV SCH (09:15)
[2018-05-06] MEDS: CLOPIDOGREL BISULFATE 75 MG TAB PO SCH (09:16)
[2018-05-06] MEDS: SODIUM CHLORIDE 5% OP SOLN 15 ML BTL OPR SCH (09:16)
[2018-05-06] MEDS: MONTELUKAST SOD 10 MG TAB PO SCH (09:16)
[2018-05-06] MEDS: CETIRIZINE HCL 10 MG TAB PO SCH (09:16)
[2018-05-06] MEDS: ESCITALOPRAM OXALATE 10 MG TAB PO SCH (09:16)
[2018-05-06] MEDS: GALANTAMINE HYDROBROMIDE 8 MG CAPER PO SCH (09:17)
[2018-05-06] MEDS: CYANOCOBALAMIN 500 MCG TAB (VIT B-12) PO SCH (09:17)
[2018-05-06] MEDS: POTASSIUM CHLORIDE 10 MEQ TABCR PO SCH (09:45)
--- NOTE | 2018-05-06 10:15 | Progress Note ---
Subjective Date of Service: May 06, 2018. Subjective Pt evaluation today including: conversation w/ patient, physical exam, lab review, conversation w/ workday financials consultant, review of inpatient medication list Pain: no pain PO Intake: poor appetite Voiding: morgan catheter in place patient feeling better, no pain, appetite slow to improve patient's Cr down to 1.2, WBC down to 18k, H/H stable, electrolytes stable discussed with Dr. Jack, he is okay to be transferred out of the ICU Problem List Medical Problems: (1) Altered mental status Status: Acute (2) Dislodged Morgan catheter Status: Acute (3) Hypotension Status: Acute (4) Sepsis Status: Acute (5) Urethral laceration Status: Acute (6) UTI (urinary tract infection) Status: Acute Review of Systems Constitutional: + weakness, + fatigue Neurologic: + memory loss, + weakness All Other Systems: Reviewed and Negative Medications Current Inpatient Medications Medications (Trade) Dose Ordered Sig/Bob Route Start Time Stop Time Status Last Admin Dose Admin Sodium Chloride 1,000 ml @ 150 mls/hr [id number] IV 05/04/18 20:23 06/03/18 19:27 05/06/18 05:30 150 MLS/HR Albuterol (Ventolin Hfa Inhaler) 2 puffs Q6 INH 05/05/18 00:00 06/04/18 00:00 05/06/18 05:47 2 PUFFS Cetirizine HCl (zyrTEC TAB) 10 mg DAILY PO 05/05/18 09:00 06/04/18 08:59 05/06/18 09:16 10 MG Clopidogrel Bisulfate (plAVix TAB) 75 mg DAILY PO 05/05/18 09:00 06/04/18 08:59 05/06/18 09:16 75 MG Cyanocobalamin (Vitamin B-12 Tab) 1,000 mcg DAILY PO 05/05/18 09:00 06/04/18 08:59 05/06/18 09:17 1,000 MCG Escitalopram Oxalate (Lexapro Tab) 5 mg DAILY PO 05/05/18 09:00 06/04/18 08:59 05/06/18 09:16 5 MG Salmeterol Xinafoate/ Fluticasone (Advair Diskus 500/50 Inh) 1 puff BID INH 05/04/18 21:00 06/03/18 20:59 05/06/18 09:14 1 PUFF Galantamine Hydrobromide (Razadyne Cap) 16 mg DAILY PO 05/05/18 09:00 06/04/18 08:59 05/06/18 09:17 16 MG Montelukast Sodium (Singulair Tab) 10 mg DAILY PO 05/05/18 09:00 06/04/18 08:59 05/06/18 09:16 10 MG Potassium Chloride (Klor-Con M10) 10 meq DAILY PO 05/05/18 09:00 06/04/18 08:59 05/06/18 09:45 10 MEQ Ropinirole HCl (Requip Tab) 0.25 mg HS PO 05/04/18 21:00 06/03/18 20:59 05/05/18 21:29 0.25 MG Sodium Chloride ([place] 128 Oph Soln) 1 drops DAILY OPR 05/05/18 09:00 06/04/18 08:59 05/06/18 09:16 1 DROPS Tiotropium [place] (Spiriva Handihaler Inhaler) 1 puff DAILY INH 05/05/18 09:00 06/04/18 08:59 05/06/18 09:15 1 PUFF Miscellaneous Information (Order Awaiting Action) 1 ea QS N/A 05/05/18 00:00 06/04/18 00:00 Thiamine HCl 200 mg/Sodium Chloride 52 ml @ 208 mls/hr QAM IV 05/05/18 09:00 06/04/18 08:59 05/06/18 09:15 208 MLS/HR Heparin Sodium (Porcine) (Heparin Sq 5000 Unit/0.5ml) 5,000 unit Q8 SQ 05/05/18 06:00 06/04/18 05:59 05/06/18 05:47 5,000 UNIT Miscellaneous Information (Icu Protocol For Hyperglycemia) 1 ea PRN PRN N/A 05/04/18 22:30 05/06/18 22:29 Heparin Sodium (Porcine) (Heparin 10 Unit/ ml 5 ml Flush) 5 ml PRN PRN FLUSH 05/05/18 01:00 06/04/18 00:59 Ceftriaxone Sodium 2000 mg/ Dextrose 70 ml @ 100 mls/hr Q24H IV 05/06/18 09:00 05/16/18 08:14 05/06/18 09:15 100 MLS/HR Objective Vital Signs Date Time Temp Pulse Resp B/P (MAP) Pulse Ox O2 Delivery O2 Flow Rate FiO2 05/06/18 06:00 74 93 05/06/18 06:00 74 93 Nasal Cannula 3.0 05/06/18 05:00 69 22 114/59 (77) 96 Nasal Cannula 3.0 05/06/18 05:00 69 22 114/59 (76) 96 05/06/18 04:00 74 13 119/48 (56) 96 05/06/18 04:00 36.8 74 13 119/48 (71) 96 Nasal Cannula 3.0 05/06/18 03:00 79 22 134/78 (96) 94 Nasal Cannula 3.0 05/06/18 03:00 79 22 134/78 (88) 94 05/06/18 02:00 82 14 113/55 (74) 91 Nasal Cannula 3.0 05/06/18 02:00 82 14 113/55 (79) 91 05/06/18 01:00 84 14 108/58 (81) 91 05/06/18 01:00 84 14 108/58 (75) 91 Nasal Cannula 3.0 05/06/18 00:00 36.9 85 7 112/71 (85) 92 Nasal Cannula 3.0 05/06/18 00:00 85 7 112/71 (84) 92 05/05/18 23:00 79 17 126/62 (67) 93 05/05/18 23:00 79 17 126/62 (83) 93 Nasal Cannula 3.0 05/05/18 22:00 90 19 113/54 (73) 91 Nasal Cannula 3.0 05/05/18 22:00 90 19 113/54 (88) 91 05/05/18 21:00 99 17 123/77 (92) 94 Nasal Cannula 3.0 05/05/18 21:00 99 17 123/77 (99) 94 05/05/18 20:00 81 20 95/53 (72) 85 05/05/18 20:00 Nasal Cannula 3.0 05/05/18 20:00 37.3 81 20 95/53 (67) 85 Nasal Cannula 3.0 05/05/18 19:01 75 16 101/48 (60) 94 18 19:00 75 13 101/48 (65) 93 Nasal Cannula 3.0 18 19:00 75 13 93 18 18:00 71 21 102/56 (71) 93 18 17:00 74 18 109/56 (73) 95 05/05/18 16:00 37.1 78 20 110/53 (72) 95 Nasal Cannula 3.0 05/05/18 16:00 Nasal Cannula 3.0 05/05/18 15:30 72 16 93/58 (70) 93 18 15:00 79 18 98/43 (60) 95 18 15:00 79 15 98/43 (61) 95 18 14:45 82 16 102/54 (65) 90 05/05/18 14:30 75 20 110/48 (68) 95 Nasal Cannula 3.0 05/05/18 14:30 82 16 110/48 (67) 96 05/05/18 14:15 83 17 110/61 (67) 83 18 14:15 83 17 110/61 (77) 94 Nasal Cannula 3.0 05/05/18 14:00 68 16 104/48 (60) 96 18 14:00 67 22 104/48 (66) 92 Nasal Cannula 3.0 05/05/18 13:45 72 12 95/51 (53) 96 05/05/18 13:45 72 16 122/63 (82) 94 Nasal Cannula 3.0 05/05/18 13:30 70 18 115/50 (62) 97 05/05/18 13:15 84 18 122/68 (73) 95 18 13:00 69 16 110/57 (75) 95 05/05/18 13:00 72 18 110/66 (81) 96 Nasal Cannula 3.0 05/05/18 12:45 68 13 119/58 (78) 98 Nasal Cannula 3.0 05/05/18 12:45 68 13 119/58 (78) 98 18 12:30 68 18 126/51 (67) 96 18 12:30 68 18 126/51 (76) 96 Nasal Cannula 3.0 05/05/18 12:15 66 14 90/49 (65) 88 05/05/18 12:15 66 20 104/56 (72) 97 Nasal Cannula 3.0 05/05/18 12:00 36.9 68 18 96/44 (61) 95 Nasal Cannula 3.0 05/05/18 12:00 Nasal Cannula 3.0 05/05/18 12:00 84 16 96/44 (67) 76 05/05/18 11:45 69 15 105/58 (72) 93 05/05/18 11:30 71 18 110/56 (68) 91 05/05/18 11:25 71 18 104/52 (58) 90 05/05/18 11:10 36.9 71 16 113/47 (69) 92 Nasal Cannula 2.0 05/05/18 11:10 82 36 113/47 (77) 94 Physical Exam General Appearance: WD/WN, no apparent distress Eyes: normal inspection, EOMI, sclerae normal ENT: normal ENT inspection, hearing grossly normal, pharynx normal Neck: supple, no adenopathy, no JVD, trachea midline Respiratory/Chest: chest non-tender, normal breath sounds, no respiratory distress, no accessory muscle use, + wheezing (mild, expiratory, right sided only) Cardiovascular: regular rate, rhythm, no edema, no gallop, no JVD, no murmur Abdomen: normal bowel sounds, non tender, soft, no organomegaly Extremities: normal range of motion, non-tender, normal inspection, no pedal edema, no calf tenderness Neurologic/Psychiatric: payment poster II-XII nml as tested, no motor/sensory deficits, alert, normal mood/affect, oriented x 3 Skin: normal color, warm/dry, no rash Laboratory Results Last 24 Hours Test 05/05/18 12:11 05/05/18 13:55 05/05/18 18:15 05/06/18 00:08 Bedside Glucose 86 mg/dl 78 mg/dl 85 mg/dl Troponin I 0.284 ng/ml Test 05/06/18 04:25 05/06/18 06:30 White Blood Count 18.96 K/uL Red Blood Count 3.62 M/uL Hemoglobin 11.5 g/dL Hematocrit 35.2 % Mean Corpuscular Volume 97.2 fL Mean Corpuscular Hemoglobin 31.8 pg Mean Corpuscular Hemoglobin Concent 32.7 g/dl Platelet Count 137 K/uL Mean Platelet Volume 9.8 fL Neutrophils (%) (Auto) 89.8 % Lymphocytes (%) (Auto) 3.8 % Monocytes (%) (Auto) 4.3 % Eosinophils (%) (Auto) 1.4 % Basophils (%) (Auto) 0.2 % Neutrophils # (Auto) 17.05 K/uL Lymphocytes # (Auto) 0.72 K/uL Monocytes # (Auto) 0.81 K/uL Eosinophils # (Auto) 0.26 K/uL Basophils # (Auto) 0.03 K/uL RDW Standard Deviation 54.5 fL RDW Coefficient of Variation 15.3 % Immature Granulocyte % (Auto) 0.5 % Immature Granulocyte # (Auto) 0.09 K/uL Prothrombin Time 12.4 SECONDS Prothromb Time International Ratio 1.2 Activated Partial Thromboplast Time 34.8 SECONDS Partial Thromboplastin Ratio 1.3 Sodium Level 142 mmol/L Potassium Level 4.0 mmol/L Chloride Level 112 mmol/L Carbon Dioxide Level 22 mmol/L Anion Gap 8.0 mmol/L Blood Urea Nitrogen 18 mg/dl Creatinine 1.24 mg/dl Est Creatinine Clear Calc Drug Dose 49.5 ml/min Estimated GFR () 60.6 Estimated GFR (Non- 52.3 BUN/Creatinine Ratio 14.5 Random Glucose 92 mg/dl Calcium Level 7.1 mg/dl Phosphorus Level 2.8 mg/dl Magnesium Level 2.1 mg/dl Total Bilirubin 0.6 mg/dl Direct Bilirubin 0.3 mg/dl Aspartate Amino Transf (AST/SGOT) 21 U/L Alanine Aminotransferase (ALT/SGPT) 15 U/L Alkaline Phosphatase 61 U/L Pro-B-Type Natriuretic Peptide 3451 pg/ml Total Protein 5.8 gm/dl Albumin 2.1 gm/dl Lipase 29 U/L Bedside Glucose 90 mg/dl Assessment and Plan Septic shock in an 87 yo male with septic shock due to UTI - Septic shock due to UTI blood culture with gram positive and gram negative bacilli, no clarification yet urine culture growing E coli, sherwood sensitive WBC down to 18k, afebrile titrated off of Levophed, BP 120 systolic urine output adequate s/p cystoscopy and left ureteral stent placed for left hydronephrosis on 05/05 , has chronic UPJ obstruction change to Rocephin, treat for 10-14 days depending on blood culture results transfer to medical floor today - DB: resolving, Cr down to 1.2 this morning from 1.84 stop fluids, + 5000cc for admission give Lasix 20mg PO later today potassium stable repeat labs in AM making adequate urine - Type II NSTEMI due to demand ischemia troponin trending down yesterday, no chest pain demand ischemia in the setting of hypotensive shock, no further work up planned - COPD, Restless leg syndrome, HTN: chronic issues mild wheezing on right side on exam today continue Albuterol and Advair Code Level 5 DVT prophylaxis: Heparin SC
[2018-05-06] MEDS ORDERED: FUROSEMIDE 20 MG TAB PO ONE (10:30)
--- NOTE | 2018-05-06 10:50 | Critical Care Progress Note ---
Critical Care Progress Note Date of Service May 06, 2018. Attending Dr. Jack Subjective No events overnight, the patient has been off pressors. No abdominal pain reported. Minimal cough with no sputum production. Objective His physical exam on 05/05/2018 showed no fever, vital signs remained stable with the presence of pressors. Heart examination S1-S2 regular rate and rhythm with distant breath sounds bilaterally. Abdomen is obese and soft bowel sounds are positive minimal tenderness mainly in the left flank. No edema. His labs were reviewed which showed elevated white count, BUN creatinine has been borderline. Physical exam on 05/06/2018 showed vital signs are stable, blood pressure is 125/ 74, heart rate is in normal sinus rhythm with occasional PACs, S1-S2 regular rate and rhythm, minimal rhonchi at the bases, abdomen is benign, no edema. His data showed decreased WBC, and the E. coli was pansensitive. Assessment & Plan 1. Septic shock requiring pressors in addition to the IV fluid. 2. UTI with gram-negative jagjit. 3. Left hydronephrosis with stranding around the left kidney consistent with acute pyelonephritis, status post left ureteral stent. 4. History of COPD. 5. History of spinal stenosis. Plan: 1. Change Zosyn to ceftriaxone 2 g IV daily. 2. Patient has E. coli which is pansensitive in the urine. 3. Appreciate Dr. Angulo from neurology input. 4. Continue with oral diet. 5. DVT prophylaxis. 6. Continue bronchodilators. 7. Discontinue norepinephrine. 8. Disposition patient to regular floor. Discussed with Dr. Casas, appreciate his acceptance of this case. 9. discontinue femoral line. 10. OT and PT consult. 11. Discussed with the staff on rounds and details, critical care time spent with the patient was 35 minutes. Data Medications: Current Inpatient Medications Medications (Trade) Dose Ordered Sig/Bob Route Start Time Stop Time Status Last Admin Dose Admin Albuterol (Ventolin Hfa Inhaler) 2 puffs Q6 INH 05/05/18 00:00 06/04/18 00:00 05/06/18 05:47 2 PUFFS Cetirizine HCl (zyrTEC TAB) 10 mg DAILY PO 05/05/18 09:00 06/04/18 08:59 05/06/18 09:16 10 MG Clopidogrel Bisulfate (plAVix TAB) 75 mg DAILY PO 05/05/18 09:00 06/04/18 08:59 05/06/18 09:16 75 MG Cyanocobalamin (Vitamin B-12 Tab) 1,000 mcg DAILY PO 05/05/18 09:00 06/04/18 08:59 05/06/18 09:17 1,000 MCG Escitalopram Oxalate (Lexapro Tab) 5 mg DAILY PO 05/05/18 09:00 06/04/18 08:59 05/06/18 09:16 5 MG Salmeterol Xinafoate/ Fluticasone (Advair Diskus 500/50 Inh) 1 puff BID INH 05/04/18 21:00 06/03/18 20:59 05/06/18 09:14 1 PUFF Galantamine Hydrobromide (Razadyne Cap) 16 mg DAILY PO 05/05/18 09:00 06/04/18 08:59 05/06/18 09:17 16 MG Montelukast Sodium (Singulair Tab) 10 mg DAILY PO 05/05/18 09:00 06/04/18 08:59 05/06/18 09:16 10 MG Potassium Chloride (Klor-Con M10) 10 meq DAILY PO 05/05/18 09:00 06/04/18 08:59 05/06/18 09:45 10 MEQ Ropinirole HCl (Requip Tab) 0.25 mg HS PO 05/04/18 21:00 06/03/18 20:59 05/05/18 21:29 0.25 MG Sodium Chloride ([place] 128 Oph Soln) 1 drops DAILY OPR 05/05/18 09:00 06/04/18 08:59 05/06/18 09:16 1 DROPS Tiotropium [place] (Spiriva Handihaler Inhaler) 1 puff DAILY INH 05/05/18 09:00 06/04/18 08:59 05/06/18 09:15 1 PUFF Miscellaneous Information (Order Awaiting Action) 1 ea QS N/A 05/05/18 00:00 06/04/18 00:00 Thiamine HCl 200 mg/Sodium Chloride 52 ml @ 208 mls/hr QAM IV 05/05/18 09:00 06/04/18 08:59 05/06/18 09:15 208 MLS/HR Heparin Sodium (Porcine) (Heparin Sq 5000 Unit/0.5ml) 5,000 unit Q8 SQ 05/05/18 06:00 06/04/18 05:59 05/06/18 05:47 5,000 UNIT Heparin Sodium (Porcine) (Heparin 10 Unit/ ml 5 ml Flush) 5 ml PRN PRN FLUSH 05/05/18 01:00 06/04/18 00:59 Ceftriaxone Sodium 2000 mg/ Dextrose 70 ml @ 100 mls/hr Q24H IV 05/06/18 09:00 05/16/18 08:14 05/06/18 09:15 100 MLS/HR Furosemide (Lasix Tab) 20 mg QAM PO 05/07/18 09:00 06/06/18 08:59 Vital Signs: Date Time Temp Pulse Resp B/P (MAP) Pulse Ox O2 Delivery O2 Flow Rate FiO2 05/06/18 06:00 74 93 05/06/18 06:00 74 93 Nasal Cannula 3.0 05/06/18 05:00 69 22 114/59 (77) 96 Nasal Cannula 3.0 05/06/18 05:00 69 22 114/59 (76) 96 05/06/18 04:00 74 13 119/48 (56) 96 05/06/18 04:00 36.8 74 13 119/48 (71) 96 Nasal Cannula 3.0 05/06/18 03:00 79 22 134/78 (96) 94 Nasal Cannula 3.0 05/06/18 03:00 79 22 134/78 (88) 94 05/06/18 02:00 82 14 113/55 (74) 91 Nasal Cannula 3.0 05/06/18 02:00 82 14 113/55 (79) 91 05/06/18 01:00 84 14 108/58 (81) 91 05/06/18 01:00 84 14 108/58 (75) 91 Nasal Cannula 3.0 05/06/18 00:00 36.9 85 7 112/71 (85) 92 Nasal Cannula 3.0 05/06/18 00:00 85 7 112/71 (84) 92 05/05/18 23:00 79 17 126/62 (67) 93 05/05/18 23:00 79 17 126/62 (83) 93 Nasal Cannula 3.0 05/05/18 22:00 90 19 113/54 (73) 91 Nasal Cannula 3.0 05/05/18 22:00 90 19 113/54 (88) 91 05/05/18 21:00 99 17 123/77 (92) 94 Nasal Cannula 3.0 05/05/18 21:00 99 17 123/77 (99) 94 18 20:00 81 20 95/53 (72) 85 18 20:00 Nasal Cannula 3.0 05/05/18 20:00 37.3 81 20 95/53 (67) 85 Nasal Cannula 3.0 05/05/18 19:01 75 16 101/48 (60) 94 05/05/18 19:00 75 13 101/48 (65) 93 Nasal Cannula 3.0 05/05/18 19:00 75 13 93 05/05/18 18:00 71 21 102/56 (71) 93 05/05/18 17:00 74 18 109/56 (73) 95 05/05/18 16:00 37.1 78 20 110/53 (72) 95 Nasal Cannula 3.0 05/05/18 16:00 Nasal Cannula 3.0 05/05/18 15:30 72 16 93/58 (70) 93 05/05/18 15:00 79 18 98/43 (60) 95 05/05/18 15:00 79 15 98/43 (61) 95 05/05/18 14:45 82 16 102/54 (65) 90 05/05/18 14:30 75 20 110/48 (68) 95 Nasal Cannula 3.0 05/05/18 14:30 82 16 110/48 (67) 96 18 14:15 83 17 110/61 (67) 83 18 14:15 83 17 110/61 (77) 94 Nasal Cannula 3.0 05/05/18 14:00 68 16 104/48 (60) 96 18 14:00 67 22 104/48 (66) 92 Nasal Cannula 3.0 05/05/18 13:45 72 12 95/51 (53) 96 18 13:45 72 16 122/63 (82) 94 Nasal Cannula 3.0 05/05/18 13:30 70 18 115/50 (62) 97 05/05/18 13:15 84 18 122/68 (73) 95 05/05/18 13:00 69 16 110/57 (75) 95 05/05/18 13:00 72 18 110/66 (81) 96 Nasal Cannula 3.0 05/05/18 12:45 68 13 119/58 (78) 98 Nasal Cannula 3.0 05/05/18 12:45 68 13 119/58 (78) 98 05/05/18 12:30 68 18 126/51 (67) 96 05/05/18 12:30 68 18 126/51 (76) 96 Nasal Cannula 3.0 05/05/18 12:15 66 14 90/49 (65) 88 05/05/18 12:15 66 20 104/56 (72) 97 Nasal Cannula 3.0 05/05/18 12:00 36.9 68 18 96/44 (61) 95 Nasal Cannula 3.0 05/05/18 12:00 Nasal Cannula 3.0 05/05/18 12:00 84 16 96/44 (67) 76 05/05/18 11:45 69 15 105/58 (72) 93 05/05/18 11:30 71 18 110/56 (68) 91 05/05/18 11:25 71 18 104/52 (58) 90 05/05/18 11:10 36.9 71 16 113/47 (69) 92 Nasal Cannula 2.0 05/05/18 11:10 82 36 113/47 (77) 94 Laboratory Results: Last 24 Hours Test 05/05/18 12:11 05/05/18 13:55 05/05/18 18:15 05/06/18 00:08 Bedside Glucose 86 mg/dl 78 mg/dl 85 mg/dl Troponin I 0.284 ng/ml Test 05/06/18 04:25 05/06/18 06:30 White Blood Count 18.96 K/uL Red Blood Count 3.62 M/uL Hemoglobin 11.5 g/dL Hematocrit 35.2 % Mean Corpuscular Volume 97.2 fL Mean Corpuscular Hemoglobin 31.8 pg Mean Corpuscular Hemoglobin Concent 32.7 g/dl Platelet Count 137 K/uL Mean Platelet Volume 9.8 fL Neutrophils (%) (Auto) 89.8 % Lymphocytes (%) (Auto) 3.8 % Monocytes (%) (Auto) 4.3 % Eosinophils (%) (Auto) 1.4 % Basophils (%) (Auto) 0.2 % Neutrophils # (Auto) 17.05 K/uL Lymphocytes # (Auto) 0.72 K/uL Monocytes # (Auto) 0.81 K/uL Eosinophils # (Auto) 0.26 K/uL Basophils # (Auto) 0.03 K/uL RDW Standard Deviation 54.5 fL RDW Coefficient of Variation 15.3 % Immature Granulocyte % (Auto) 0.5 % Immature Granulocyte # (Auto) 0.09 K/uL Prothrombin Time 12.4 SECONDS Prothromb Time International Ratio 1.2 Activated Partial Thromboplast Time 34.8 SECONDS Partial Thromboplastin Ratio 1.3 Sodium Level 142 mmol/L Potassium Level 4.0 mmol/L Chloride Level 112 mmol/L Carbon Dioxide Level 22 mmol/L Anion Gap 8.0 mmol/L Blood Urea Nitrogen 18 mg/dl Creatinine 1.24 mg/dl Est Creatinine Clear Calc Drug Dose 49.5 ml/min Estimated GFR () 60.6 Estimated GFR (Non- 52.3 BUN/Creatinine Ratio 14.5 Random Glucose 92 mg/dl Calcium Level 7.1 mg/dl Phosphorus Level 2.8 mg/dl Magnesium Level 2.1 mg/dl Total Bilirubin 0.6 mg/dl Direct Bilirubin 0.3 mg/dl Aspartate Amino Transf (AST/SGOT) 21 U/L Alanine Aminotransferase (ALT/SGPT) 15 U/L Alkaline Phosphatase 61 U/L Pro-B-Type Natriuretic Peptide 3451 pg/ml Total Protein 5.8 gm/dl Albumin 2.1 gm/dl Lipase 29 U/L Bedside Glucose 90 mg/dl
[2018-05-06] MEDS: ROPINIROLE HCL 0.25 MG TAB PO SCH (21:00)
[2018-05-06] MEDS ORDERED: MAGNESIUM HYDROXIDE SUSP 30 ML UDC PO PRN (21:15)
[2018-05-07] MEDS: HEPARIN SOD 5000 UNIT/0.5 ML CARP SQ SCH ×3 (05:56→20:18)
[2018-05-07] MEDS: ALBUTEROL HFA 8 GM INHALER INH SCH ×5 (05:57→23:27)
[2018-05-07 06:45] LABS: BASO % 0.2 %; BASO ABS # 0.03 K/uL (0-0.2); EOS % 1.4 %; EOS ABS # 0.21 K/uL (0-0.5); HEMATOCRIT 35.6 % (42-52); HEMOGLOBIN 11.6 g/dL (14.0-18.0); IG# 0.04 K/uL (0.00-0.02); LYMPH ABS # 1.16 K/uL (1.2-3.4); MEAN CELL VOLUME 97.8 fL (80-100); MEAN CORPUSCULAR HEMOGLOBIN 31.9 pg (25-34); MEAN CORPUSCULAR HGB CONC 32.6 g/dl (32-36); MEAN PLATELET VOLUME 10.6 fL (7.4-10.4); MONO % 4.5 %; MONO ABS # 0.65 K/uL (0.11-0.59); NEUT % 85.6 %; NEUT ABS # 12.46 K/uL (1.4-6.5); PLATELET COUNT 158 K/uL (130-400); RED CELL DISTRIBUTION WIDTH CV 15.1 % (11.5-14.5); RED CELL DISTRIBUTION WIDTH SD 54.1 fL (36.4-46.3); WHITE BLOOD COUNT 14.55 K/uL (4.8-10.8)
[2018-05-07 07:27] LABS: ALBUMIN 2.1 gm/dl (3.4-5.0); CALCIUM 8.1 mg/dl (8.5-10.1); CREATININE 1.08 mg/dl (0.60-1.40); POTASSIUM 3.9 mmol/L (3.5-5.1); TOTAL PROTEIN 6.1 gm/dl (6.4-8.2)
[2018-05-07 07:36] VITALS: BP 164/68; PULSE 76; TEMP 36.7; O2SAT 96
[2018-05-07] MEDS: THIAMINE HCL INJ 200 MG in SODIUM CHLORIDE 0.9% 50ML 50 ML IV SCH (07:46)
[2018-05-07] MEDS: SODIUM CHLORIDE 5% OP SOLN 15 ML BTL OPR SCH (07:48)
[2018-05-07] MEDS: FLUTICASONE/SALMETEROL (ADVAIR) 500/50 INH 14 PUFF INH SCH ×2 (07:48→20:19)
[2018-05-07] MEDS: TIOTROPIUM BROMIDE 5 PUFF/90 MCG INH INH SCH (07:48)
[2018-05-07] MEDS: FUROSEMIDE 20 MG TAB PO SCH (07:50)
[2018-05-07] MEDS: CYANOCOBALAMIN 500 MCG TAB (VIT B-12) PO SCH (07:50)
[2018-05-07] MEDS: MONTELUKAST SOD 10 MG TAB PO SCH (07:50)
[2018-05-07] MEDS: POTASSIUM CHLORIDE 10 MEQ TABCR PO SCH (07:50)
[2018-05-07] MEDS: GALANTAMINE HYDROBROMIDE 8 MG CAPER PO SCH (07:51)
[2018-05-07] MEDS: CETIRIZINE HCL 10 MG TAB PO SCH (07:51)
[2018-05-07] MEDS: CLOPIDOGREL BISULFATE 75 MG TAB PO SCH (07:51)
[2018-05-07] MEDS: ESCITALOPRAM OXALATE 10 MG TAB PO SCH (07:51)
[2018-05-07 08:00] VITALS: O2SAT 96
[2018-05-07] MEDS: CEFTRIAXONE SOD INJ 2,000 MG in DEXTROSE 5% 50ML 50 ML IV SCH (08:17)
--- NOTE | 2018-05-07 08:48 | Progress Note ---
Subjective Date of Service: May 07, 2018. Subjective Pt evaluation today including: conversation w/ patient, physical exam, lab review, conversation w/ solution consultant, review of inpatient medication list Pain: no pain PO Intake: improving Voiding: morgan catheter in place patient feeling much better, says he wants to go home today appetite improved today reviewed labs, Cr improved to 1.0, making adequate urine, diuresing with Lasix still on some oxygen, 3L this morning, normally does not wear oxygen ambulated with therapy, close to baseline says he receives great care at [facility] discussed with Dr. Angulo, can remove morgan discussed that he really should stay one more day, we will remove morgan, diurese further, dry out lungs to try to titrate off oxygen he understood Problem List Medical Problems: (1) Altered mental status Status: Acute (2) Dislodged Morgan catheter Status: Acute (3) Hypotension Status: Acute (4) Sepsis Status: Acute (5) Urethral laceration Status: Acute (6) UTI (urinary tract infection) Status: Acute Review of Systems Constitutional: + weakness Respiratory: + dyspnea on exertion All Other Systems: Reviewed and Negative Medications Current Inpatient Medications Medications (Trade) Dose Ordered Sig/Bob Route Start Time Stop Time Status Last Admin Dose Admin Albuterol (Ventolin Hfa Inhaler) 2 puffs Q6 INH 05/05/18 00:00 06/04/18 00:00 05/07/18 05:57 2 PUFFS Cetirizine HCl (zyrTEC TAB) 10 mg DAILY PO 05/05/18 09:00 06/04/18 08:59 05/07/18 07:51 10 MG Clopidogrel Bisulfate (plAVix TAB) 75 mg DAILY PO 05/05/18 09:00 06/04/18 08:59 05/07/18 07:51 75 MG Cyanocobalamin (Vitamin B-12 Tab) 1,000 mcg DAILY PO 05/05/18 09:00 06/04/18 08:59 05/07/18 07:50 1,000 MCG Escitalopram Oxalate (Lexapro Tab) 5 mg DAILY PO 05/05/18 09:00 06/04/18 08:59 05/07/18 07:51 5 MG Salmeterol Xinafoate/ Fluticasone (Advair Diskus 500/50 Inh) 1 puff BID INH 05/04/18 21:00 06/03/18 20:59 05/07/18 07:48 1 PUFF Galantamine Hydrobromide (Razadyne Cap) 16 mg DAILY PO 05/05/18 09:00 06/04/18 08:59 05/07/18 07:51 16 MG Montelukast Sodium (Singulair Tab) 10 mg DAILY PO 05/05/18 09:00 06/04/18 08:59 05/07/18 07:50 10 MG Potassium Chloride (Klor-Con M10) 10 meq DAILY PO 05/05/18 09:00 06/04/18 08:59 05/07/18 07:50 10 MEQ Ropinirole HCl (Requip Tab) 0.25 mg HS PO 05/04/18 21:00 06/03/18 20:59 05/06/18 21:00 0.25 MG Sodium Chloride (Osman 128 Oph Soln) 1 drops DAILY OPR 05/05/18 09:00 06/04/18 08:59 05/07/18 07:48 1 DROPS Tiotropium [place] (Spiriva Handihaler Inhaler) 1 puff DAILY INH 05/05/18 09:00 06/04/18 08:59 05/07/18 07:48 1 PUFF Miscellaneous Information (Order Awaiting Action) 1 ea QS N/A 05/05/18 00:00 06/04/18 00:00 Thiamine HCl 200 mg/Sodium Chloride 52 ml @ 208 mls/hr QAM IV 05/05/18 09:00 06/04/18 08:59 05/07/18 07:46 208 MLS/HR Heparin Sodium (Porcine) (Heparin Sq 5000 Unit/0.5ml) 5,000 unit Q8 SQ 05/05/18 06:00 06/04/18 05:59 05/07/18 05:56 5,000 UNIT Heparin Sodium (Porcine) (Heparin 10 Unit/ ml 5 ml Flush) 5 ml PRN PRN FLUSH 05/05/18 01:00 06/04/18 00:59 Ceftriaxone Sodium 2000 mg/ Dextrose 70 ml @ 100 mls/hr Q24H IV 05/06/18 09:00 05/16/18 08:14 05/07/18 08:17 100 MLS/HR Furosemide (Lasix Tab) 20 mg QAM PO 05/07/18 08:00 06/06/18 08:59 05/07/18 07:50 20 MG Magnesium Hydroxide (Milk Of Magnesia Susp) 30 ml Q6H PRN PO 05/06/18 21:15 06/05/18 21:14 Objective Vital Signs Date Time Temp Pulse Resp B/P (MAP) Pulse Ox O2 Delivery O2 Flow Rate FiO2 05/07/18 08:00 96 Nasal Cannula 3.0 05/07/18 07:36 36.7 76 19 164/68 (100) 96 Nasal Cannula 3.0 05/07/18 00:00 Nasal Cannula 3.0 05/06/18 23:27 36.9 72 20 149/74 (99) 93 CPAP 3.0 05/06/18 16:27 37.6 92 16 127/73 (91) 92 Room Air 05/06/18 16:00 93 Nasal Cannula 3.0 05/06/18 12:00 94 Nasal Cannula 3.0 05/06/18 11:40 36.6 68 19 143/87 (105) 94 Nasal Cannula 3.0 05/06/18 11:28 36.5 82 21 96 3.0 05/06/18 11:00 82 21 135/74 (94) 96 Nasal Cannula 3.0 05/06/18 10:00 78 22 125/74 (91) 92 Nasal Cannula 3.0 05/06/18 09:00 75 20 121/68 (85) 95 Nasal Cannula 3.0 Physical Exam General Appearance: no apparent distress, + obese Eyes: normal inspection, EOMI, sclerae normal ENT: normal ENT inspection, hearing grossly normal, pharynx normal Neck: supple, no adenopathy, no JVD, trachea midline Respiratory/Chest: chest non-tender, normal breath sounds, no respiratory distress, no accessory muscle use, + rales (in bases bilaterally) Cardiovascular: regular rate, rhythm, no edema, no gallop, no JVD, no murmur Abdomen: normal bowel sounds, non tender, soft, no organomegaly Extremities: normal range of motion, non-tender, normal inspection, no pedal edema, no calf tenderness, pelvis stable Neurologic/Psychiatric: dray driver II-XII nml as tested, no motor/sensory deficits, alert, normal mood/affect, oriented x 3 Skin: normal color, warm/dry, no rash Lymphatic: no adenopathy Laboratory Results Last 24 Hours Test 05/07/18 06:07 White Blood Count 14.55 K/uL Red Blood Count 3.64 M/uL Hemoglobin 11.6 g/dL Hematocrit 35.6 % Mean Corpuscular Volume 97.8 fL Mean Corpuscular Hemoglobin 31.9 pg Mean Corpuscular Hemoglobin Concent 32.6 g/dl Platelet Count 158 K/uL Mean Platelet Volume 10.6 fL Neutrophils (%) (Auto) 85.6 % Lymphocytes (%) (Auto) 8.0 % Monocytes (%) (Auto) 4.5 % Eosinophils (%) (Auto) 1.4 % Basophils (%) (Auto) 0.2 % Neutrophils # (Auto) 12.46 K/uL Lymphocytes # (Auto) 1.16 K/uL Monocytes # (Auto) 0.65 K/uL Eosinophils # (Auto) 0.21 K/uL Basophils # (Auto) 0.03 K/uL RDW Standard Deviation 54.1 fL RDW Coefficient of Variation 15.1 % Immature Granulocyte % (Auto) 0.3 % Immature Granulocyte # (Auto) 0.04 K/uL Sodium Level 142 mmol/L Potassium Level 3.9 mmol/L Chloride Level 109 mmol/L Carbon Dioxide Level 26 mmol/L Anion Gap 7.0 mmol/L Blood Urea Nitrogen 15 mg/dl Creatinine 1.08 mg/dl Est Creatinine Clear Calc Drug Dose 56.5 ml/min Estimated GFR () 71.6 Estimated GFR (Non- 61.8 BUN/Creatinine Ratio 13.6 Random Glucose 76 mg/dl Calcium Level 8.1 mg/dl Magnesium Level 2.1 mg/dl Total Bilirubin 0.7 mg/dl Direct Bilirubin 0.3 mg/dl Aspartate Amino Transf (AST/SGOT) 22 U/L Alanine Aminotransferase (ALT/SGPT) 15 U/L Alkaline Phosphatase 77 U/L Total Protein 6.1 gm/dl Albumin 2.1 gm/dl Assessment and Plan Septic shock in an 87 yo male with septic shock due to UTI - Septic shock due to UTI one out of three cultures with gram positive bacillus and GN bacillus, doubt significance urine culture grew E coli, sherwood sensitive WBC down to 14k, afebrile urine output adequate s/p cystoscopy and left ureteral stent placed for left hydronephrosis on 05/05 , has chronic UPJ obstruction treated with Zosyn and then Rocephin, will d/c Rocephin today, change to Keflex tomorrow AM needs to complete 14 days total - DB: resolved, Cr down to 1.0 this morning from 1.84 two days ago aggressive hydration initially Lasix 20mg PO daily resumed yesterday, diuresed 2 liters so far continue home dose of Lasix 20mg - Type II NSTEMI due to demand ischemia troponin trended down quickly, no chest pain demand ischemia in the setting of hypotensive shock, no further work up planned - COPD, Restless leg syndrome, HTN: chronic issues mild wheezing on right side on exam today continue Albuterol and Advair - Mild hypoxia: due to some mild pulmonary edema, volume overload from aggressive hydration should be able to titrate off oxygen by tomorrow with Lasix Code Level 5 DVT prophylaxis: Heparin SC Plan: should be ready for discharge tomorrow to [facility], should complete 10 more days of Keflex for 14 days total
--- NOTE | 2018-05-07 09:45 | Urology Progress Note ---
Progress Note Date of Service May 07, 2018. Subjective Pt evaluation today including: conversation w/ patient, chart review, lab review Pain: Denies 87 year old male POD#2 s/p cystoscopy, left ureteral stent placement for stone with sepsis. Patient is feeling well this morning. Patient has been titrated off pressors and transitioned to medical floor from ICU. Denies pain today, states that his stent is not bothersome. Denies nausea/vomiting. Morgan catheter was removed 10 minutes ago, awaiting spontaneous void. Per nursing, straw colored urine in morgan bag overnight. No fevers overnight. Transitioned to PO Keflex from IV antibiotics. Final blood culture still pending. Constitutional: No fever, No chills, No sweats Respiratory: + cough, No shortness of breath Cardiovascular: No chest pain Abdomen: No pain, No nausea, No vomiting Male : + see HPI Neurologic: + memory loss (baseline dementia) Objective Vital Signs Date Time Temp Pulse Resp B/P (MAP) Pulse Ox O2 Delivery O2 Flow Rate FiO2 05/07/18 08:00 96 Nasal Cannula 3.0 05/07/18 07:36 36.7 76 19 164/68 (100) 96 Nasal Cannula 3.0 05/07/18 00:00 Nasal Cannula 3.0 05/06/18 23:27 36.9 72 20 149/74 (99) 93 CPAP 3.0 05/06/18 16:27 37.6 92 16 127/73 (91) 92 Room Air 05/06/18 16:00 93 Nasal Cannula 3.0 05/06/18 12:00 94 Nasal Cannula 3.0 05/06/18 11:40 36.6 68 19 143/87 (105) 94 Nasal Cannula 3.0 05/06/18 11:28 36.5 82 21 96 3.0 05/06/18 11:00 82 21 135/74 (94) 96 Nasal Cannula 3.0 05/06/18 10:00 78 22 125/74 (91) 92 Nasal Cannula 3.0 Physical Exam General Appearance: no apparent distress Eyes: normal inspection ENT: hearing grossly normal Neck: no JVD Respiratory/Chest: no respiratory distress, no accessory muscle use Cardiovascular: no JVD Abdomen: non tender Extremities: normal inspection Neurologic/Psychiatric: alert, normal mood/affect, oriented x 3 Skin: normal color, warm/dry Laboratory Results Last 24 Hours Test 05/07/18 06:07 White Blood Count 14.55 K/uL Red Blood Count 3.64 M/uL Hemoglobin 11.6 g/dL Hematocrit 35.6 % Mean Corpuscular Volume 97.8 fL Mean Corpuscular Hemoglobin 31.9 pg Mean Corpuscular Hemoglobin Concent 32.6 g/dl Platelet Count 158 K/uL Mean Platelet Volume 10.6 fL Neutrophils (%) (Auto) 85.6 % Lymphocytes (%) (Auto) 8.0 % Monocytes (%) (Auto) 4.5 % Eosinophils (%) (Auto) 1.4 % Basophils (%) (Auto) 0.2 % Neutrophils # (Auto) 12.46 K/uL Lymphocytes # (Auto) 1.16 K/uL Monocytes # (Auto) 0.65 K/uL Eosinophils # (Auto) 0.21 K/uL Basophils # (Auto) 0.03 K/uL RDW Standard Deviation 54.1 fL RDW Coefficient of Variation 15.1 % Immature Granulocyte % (Auto) 0.3 % Immature Granulocyte # (Auto) 0.04 K/uL Sodium Level 142 mmol/L Potassium Level 3.9 mmol/L Chloride Level 109 mmol/L Carbon Dioxide Level 26 mmol/L Anion Gap 7.0 mmol/L Blood Urea Nitrogen 15 mg/dl Creatinine 1.08 mg/dl Est Creatinine Clear Calc Drug Dose 56.5 ml/min Estimated GFR () 71.6 Estimated GFR (Non- 61.8 BUN/Creatinine Ratio 13.6 Random Glucose 76 mg/dl Calcium Level 8.1 mg/dl Magnesium Level 2.1 mg/dl Total Bilirubin 0.7 mg/dl Direct Bilirubin 0.3 mg/dl Aspartate Amino Transf (AST/SGOT) 22 U/L Alanine Aminotransferase (ALT/SGPT) 15 U/L Alkaline Phosphatase 77 U/L Total Protein 6.1 gm/dl Albumin 2.1 gm/dl Assessment and Plan 87 year old male POD#2, cystoscopy, left ureteral stent placement for stone with sepsis. Tolerating stent well. Morgan catheter just removed, awaiting spontaneous void. Creatinine WNL and white count improving. Final blood culture still pending. Transitioned to PO Keflex, will need 14d total antibiotic therapy. Arrangements have been made for outpatient follow up with Dr. uMeller in 1 week. Thank you for allowing us to participate in the care of this patient. Please contact our service with any questions or concerns.
[2018-05-07 15:04] VITALS: BP 145/86; PULSE 86; TEMP 37; O2SAT 92
[2018-05-07] MEDS: ROPINIROLE HCL 0.25 MG TAB PO SCH (20:19)
[2018-05-07] MEDS: CEPHALEXIN MONOHYDRATE 500 MG CAP PO SCH (20:19)
[2018-05-07 22:48] VITALS: BP 134/61; PULSE 83; TEMP 36.9; O2SAT 93
[2018-05-08] MEDS: HEPARIN SOD 5000 UNIT/0.5 ML CARP SQ SCH ×3 (05:42→21:59)
[2018-05-08] MEDS: ALBUTEROL HFA 8 GM INHALER INH SCH ×3 (05:42→20:10)
--- NOTE | 2018-05-08 06:01 | Progress Note ---
Post ICU Progress Note Date & Time May 08, 2018 at 05:56 Vital Signs Vital Signs Past 12 Hours Date Time Temp Pulse Resp B/P (MAP) Pulse Ox O2 Delivery O2 Flow Rate FiO2 05/08/18 00:00 CPAP 3.0 05/07/18 22:48 36.9 83 14 134/61 (85) 93 Room Air Notes Mental Status: alert / awake Nausea / Vomiting: adequately controlled Pain: adequately controlled Airway Patency, RR, SpO2: stable & adequate BP & HR: stable & adequate Patient is an 87-year-old male who was initially admitted to the ICU with sepsis from urinary source. He initially required pressors after aggressive fluid resuscitation. Patient was found to have a chronic LEFT-sided nephrolithiasis with obstruction. He underwent placement of ureteral stent. Patient was quickly weaned off pressors and continued to improve throughout his stay in the ICU. He was subsequently downgraded and transferred to the medical floor. On evaluation today, the patient is awake, alert, and oriented. He is resting comfortably. He just finished voiding. He offers no complaints at this time and continues to report feeling improved. Consider outpatient follow up in 1 to 2 weeks with: PCP, Urology Repeat imaging needed: Per admitting services. Follow up cultures: Continue to treat UTI as documented. Reviewed progress notes, labs, and inpatient medication list Continue current management Additional recommendations: None at this time. Thank you for allowing us to participate in the care of this patient. At this time, Critical Care Services will sign off on this patient. Please feel free to reconsult as needed.
[2018-05-08 07:23] LABS: BASO % 0.3 %; BASO ABS # 0.03 K/uL (0-0.2); EOS % 4.4 %; EOS ABS # 0.46 K/uL (0-0.5); HEMATOCRIT 36.6 % (42-52); HEMOGLOBIN 12.3 g/dL (14.0-18.0); IG# 0.07 K/uL (0.00-0.02); LYMPH % 14.4 %; LYMPH ABS # 1.49 K/uL (1.2-3.4); MEAN CELL VOLUME 96.6 fL (80-100); MEAN CORPUSCULAR HEMOGLOBIN 32.5 pg (25-34); MEAN CORPUSCULAR HGB CONC 33.6 g/dl (32-36); MEAN PLATELET VOLUME 10.2 fL (7.4-10.4); MONO % 6.8 %; NEUT % 73.4 %; NEUT ABS # 7.59 K/uL (1.4-6.5); PLATELET COUNT 162 K/uL (130-400); RED CELL DISTRIBUTION WIDTH CV 14.6 % (11.5-14.5); WHITE BLOOD COUNT 10.34 K/uL (4.8-10.8)
[2018-05-08] MEDS: FLUTICASONE/SALMETEROL (ADVAIR) 500/50 INH 14 PUFF INH SCH ×2 (07:25→20:10)
[2018-05-08] MEDS: ESCITALOPRAM OXALATE 10 MG TAB PO SCH (07:26)
[2018-05-08] MEDS: GALANTAMINE HYDROBROMIDE 8 MG CAPER PO SCH (07:26)
[2018-05-08] MEDS: TIOTROPIUM BROMIDE 5 PUFF/90 MCG INH INH SCH (07:26)
[2018-05-08] MEDS: CYANOCOBALAMIN 500 MCG TAB (VIT B-12) PO SCH (07:26)
[2018-05-08] MEDS: POTASSIUM CHLORIDE 10 MEQ TABCR PO SCH (07:27)
[2018-05-08] MEDS: MONTELUKAST SOD 10 MG TAB PO SCH (07:27)
[2018-05-08] MEDS: CEPHALEXIN MONOHYDRATE 500 MG CAP PO SCH ×2 (07:27→20:11)
[2018-05-08] MEDS: FUROSEMIDE 20 MG TAB PO SCH (07:27)
[2018-05-08] MEDS: CLOPIDOGREL BISULFATE 75 MG TAB PO SCH (07:27)
[2018-05-08] MEDS: CETIRIZINE HCL 10 MG TAB PO SCH (07:27)
[2018-05-08] MEDS: SODIUM CHLORIDE 5% OP SOLN 15 ML BTL OPR SCH (07:29)
[2018-05-08] MEDS: THIAMINE HCL INJ 200 MG in SODIUM CHLORIDE 0.9% 50ML 50 ML IV SCH (07:29)
[2018-05-08 07:30] VITALS: BP 161/82; PULSE 60; TEMP 36.7; O2SAT 91
[2018-05-08 07:55] LABS: POTASSIUM 3.6 mmol/L (3.5-5.1)
[2018-05-08] MEDS ORDERED: FUROSEMIDE INJ 20 MG in SYRINGE 0 ML IV ONE (09:00)
[2018-05-08 10:06] VITALS: BP 167/69; PULSE 69; O2SAT 96
--- NOTE | 2018-05-08 10:36 | Hospitalist Progress Note ---
Hospitalist Progress Note Date of Service May 08, 2018. Subjective Pt evaluation today including: conversation w/ patient, conversation w/ family () Voiding: requires PRN straight cath Pt denies problems. informs me he always gets straight cathed bid. Pt denies CP or SOB. He required 5 LNC overnight and RNs had trouble weaning him down. Received IV lasix this AM and now weaned back to 3 LNC. Moving bowels and eating Did a peer to peer with insurance and denied today based on not being medically stable, however, it seems they will deny no matter what for SNF All Other Systems: Reviewed and Negative Objective Vital Signs Date Time Temp Pulse Resp B/P (MAP) Pulse Ox O2 Delivery O2 Flow Rate FiO2 05/08/18 10:06 69 167/69 (101) 96 Nasal Cannula 3.0 05/08/18 08:00 Nasal Cannula 3.0 05/08/18 07:30 36.7 60 18 161/82 (108) 91 Nasal Cannula 5.0 05/08/18 00:00 CPAP 3.0 05/07/18 22:48 36.9 83 14 134/61 (85) 93 Room Air 05/07/18 16:00 Nasal Cannula 3.0 05/07/18 15:04 37.0 86 16 145/86 (105) 92 Room Air Physical Exam General Appearance: WD/WN, no apparent distress Eyes: normal inspection, sclerae normal ENT: + pertinent finding ([facility]) Neck: trachea midline Respiratory/Chest: no respiratory distress, no accessory muscle use, + crackles (at bases,faint) Cardiovascular: regular rate, rhythm, + extra beats (with frequent ectopy) Abdomen: normal bowel sounds, non tender, soft Extremities: normal inspection, no pedal edema, no calf tenderness Neurologic/Psychiatric: alert, normal mood/affect Skin: normal color, warm/dry, no rash Laboratory Results Last 24 Hours Test 05/08/18 07:04 White Blood Count 10.34 K/uL Red Blood Count 3.79 M/uL Hemoglobin 12.3 g/dL Hematocrit 36.6 % Mean Corpuscular Volume 96.6 fL Mean Corpuscular Hemoglobin 32.5 pg Mean Corpuscular Hemoglobin Concent 33.6 g/dl Platelet Count 162 K/uL Mean Platelet Volume 10.2 fL Neutrophils (%) (Auto) 73.4 % Lymphocytes (%) (Auto) 14.4 % Monocytes (%) (Auto) 6.8 % Eosinophils (%) (Auto) 4.4 % Basophils (%) (Auto) 0.3 % Neutrophils # (Auto) 7.59 K/uL Lymphocytes # (Auto) 1.49 K/uL Monocytes # (Auto) 0.70 K/uL Eosinophils # (Auto) 0.46 K/uL Basophils # (Auto) 0.03 K/uL RDW Standard Deviation 52.0 fL RDW Coefficient of Variation 14.6 % Immature Granulocyte % (Auto) 0.7 % Immature Granulocyte # (Auto) 0.07 K/uL Sodium Level 140 mmol/L Potassium Level 3.6 mmol/L Chloride Level 108 mmol/L Carbon Dioxide Level 26 mmol/L Anion Gap 6.0 mmol/L Blood Urea Nitrogen 11 mg/dl Creatinine 1.00 mg/dl Est Creatinine Clear Calc Drug Dose 61.1 ml/min Estimated GFR () 78.6 Estimated GFR (Non- 67.8 BUN/Creatinine Ratio 11.3 Random Glucose 91 mg/dl Calcium Level 8.0 mg/dl Assessment and Plan Septic shock in an 87 yo male with septic shock due to UTI and left sided ureteral obstruction - Septic shock due to UTI and ureteral obstruction one out of three cultures with gram positive bacillus and GN bacillus, doubt significance urine culture grew E coli, sherwood sensitive WBC down to 10k, remains afebrile urine output adequate, however straight caths BID--> ordered today as Kirby just removed yesterday and required straight cath for 800 mL last night s/p cystoscopy and left ureteral stent placed for left hydronephrosis on 05/05 , has chronic UPJ obstruction treated with Zosyn and then Rocephin, have since dc'd Rocephin and changed to Keflex today needs to complete 14 days total - DB: resolved, Cr down to 1.0 and stable from peak at 1.84 aggressive hydration initially Lasix 20mg PO daily resumed but remains hypoxic and with crackles--> IV lasix 20mg IV x 1 now continue home dose of Lasix 20mg daily Acute on chronic diastolic CHF/Acute hypoxic respiratory failure-last ECHO 2012 with preserved EF-received a lot of IVFs initially, now working on diuresis as above -IV lasix 20mg IV x 1 now -po lasix to continue - Type II NSTEMI due to demand ischemia troponin trended down quickly, no chest pain demand ischemia in the setting of hypotensive shock, no further work up planned - COPD, Restless leg syndrome, HTN: chronic issues. Now BPs elevated -IV lasix as above for elevated BPs continue Albuterol and Advair - Acute hypoxic respiratory failure: due to some mild pulmonary edema, volume overload from aggressive hydration should hopefully titrate off oxygen with IV Lasix Urinary retention-chronic issue-straight caths at home bid ordered straight cath bid here and bladder scan qshift with prn straight cath mid day Code Level 5 DVT prophylaxis: Heparin SC Plan: hopefully discharge tomorrow to [facility] if respiratory status improved, but will most likely be denied SNF, should complete 9 more days of Keflex for 14 days total
[2018-05-08 15:25] VITALS: BP 152/82; PULSE 74; TEMP 36.8; O2SAT 95
[2018-05-08] MEDS: ROPINIROLE HCL 0.25 MG TAB PO SCH (21:54)
[2018-05-08 23:07] VITALS: BP 171/74; PULSE 77; TEMP 36.6; O2SAT 92
[2018-05-09] MEDS: ALBUTEROL HFA 8 GM INHALER INH SCH ×5 (00:02→21:44)
[2018-05-09] MEDS: HEPARIN SOD 5000 UNIT/0.5 ML CARP SQ SCH ×3 (06:29→21:44)
[2018-05-09 07:21] VITALS: BP 105/65; PULSE 90; TEMP 37; O2SAT 92
[2018-05-09 07:37] LABS: BASO % 0.7 %; BASO ABS # 0.06 K/uL (0-0.2); EOS ABS # 0.42 K/uL (0-0.5); HEMATOCRIT 36.4 % (42-52); HEMOGLOBIN 12.5 g/dL (14.0-18.0); IG# 0.07 K/uL (0.00-0.02); LYMPH ABS # 1.35 K/uL (1.2-3.4); MEAN CORPUSCULAR HEMOGLOBIN 32.6 pg (25-34); MEAN CORPUSCULAR HGB CONC 34.3 g/dl (32-36); MONO % 8.6 %; MONO ABS # 0.72 K/uL (0.11-0.59); NEUT % 68.9 %; PLATELET COUNT 163 K/uL (130-400); RED CELL DISTRIBUTION WIDTH CV 14.3 % (11.5-14.5); RED CELL DISTRIBUTION WIDTH SD 49.2 fL (36.4-46.3); WHITE BLOOD COUNT 8.42 K/uL (4.8-10.8)
[2018-05-09 08:09] LABS: CALCIUM 8.1 mg/dl (8.5-10.1); CREATININE 0.91 mg/dl (0.60-1.40); POTASSIUM 3.2 mmol/L (3.5-5.1)
[2018-05-09] MEDS: FLUTICASONE/SALMETEROL (ADVAIR) 500/50 INH 14 PUFF INH SCH ×2 (08:43→19:34)
--- NOTE | 2018-05-09 08:44 | DIAGNOSTIC IMAGING REPORT ---
SINGLE VIEW CHEST CLINICAL HISTORY: Hypoxia. FINDINGS: An AP, portable, upright chest radiograph is compared to study dated 05/04/2018. Correlation is made with chest CT dated 03/25/2013. The examination is degraded by portable technique, apical lordotic positioning, and patient rotation. The heart is enlarged and there is atherosclerotic calcification of the thoracic aorta. The pulmonary vasculature is noncongested. Changes of chronic interstitial lung disease are similar to previous. Superimposed airspace consolidation is suspected at the left lung base. There is a small left pleural effusion. No pneumothorax is seen. The skeletal structures are osteopenic. The bony thorax is grossly intact. Advanced arthritic change is seen in the shoulders. IMPRESSION: 1. Cardiomegaly without radiographic evidence of congestive failure. 2. Changes of chronic interstitial lung disease are similar to previous. 3. Superimposed airspace consolidation is suspected at the left lung base with a left pleural effusion. Correlated clinically for evidence of pneumonia/aspiration pneumonitis. Radiographic follow-up to resolution is recommended. Electronically signed by: Alvin Lee M.D. 05/09/2018 8:42 AM Dictated Date/Time: 05/09/2018 8:40 AM
[2018-05-09] MEDS: SODIUM CHLORIDE 5% OP SOLN 15 ML BTL OPR SCH (08:45)
[2018-05-09] MEDS: CETIRIZINE HCL 10 MG TAB PO SCH (08:49)
[2018-05-09] MEDS: CLOPIDOGREL BISULFATE 75 MG TAB PO SCH (08:51)
[2018-05-09] MEDS: ESCITALOPRAM OXALATE 10 MG TAB PO SCH (08:51)
[2018-05-09] MEDS: FUROSEMIDE 20 MG TAB PO SCH (08:52)
[2018-05-09] MEDS: MONTELUKAST SOD 10 MG TAB PO SCH (08:52)
[2018-05-09] MEDS: GALANTAMINE HYDROBROMIDE 8 MG CAPER PO SCH (08:52)
[2018-05-09] MEDS: POTASSIUM CHLORIDE 10 MEQ TABCR PO SCH ×3 (08:53→19:34)
[2018-05-09] MEDS: CYANOCOBALAMIN 500 MCG TAB (VIT B-12) PO SCH (08:53)
[2018-05-09] MEDS: CEPHALEXIN MONOHYDRATE 500 MG CAP PO SCH (08:54)
[2018-05-09] MEDS ORDERED: PIPERACILL/TAZOBAC CONSULT ACTIVE PRN (09:15)
[2018-05-09] MEDS ORDERED: PIPERACILL/TAZOBAC IV 3.375 GM in DEXTROSE 5% 100ML 100 ML IV ONE (10:00)
[2018-05-09] MEDS: TIOTROPIUM BROMIDE 5 PUFF/90 MCG INH INH SCH (10:15)
[2018-05-09] MEDS: THIAMINE HCL INJ 200 MG in SODIUM CHLORIDE 0.9% 50ML 50 ML IV SCH (10:16)
[2018-05-09] MEDS ORDERED: METHYLPREDNISOLONE IV 50 MG in SYRINGE 0 ML IV ONE (14:00)
[2018-05-09] MEDS: PIPERACILL/TAZOBAC IV 3.375 GM in DEXTROSE 5% 100ML 100 ML IV SCH ×2 (14:11→21:40)
[2018-05-09 14:57] VITALS: BP 137/73; PULSE 83; TEMP 36.4; O2SAT 98
--- NOTE | 2018-05-09 16:26 | Progress Note ---
Subjective Date of Service: May 09, 2018. Subjective Pt evaluation today including: conversation w/ patient, conversation w/ family (), physical exam, lab review, review of studies, conversation w/ merchandising consultant , review of inpatient medication list Pain: no pain PO Intake: adequate Voiding: requires PRN straight cath patient still with hypoxia says he does not feel overly short of breath, has some wheezing, non-productive cough occasionally requiring 5L at rest, normally not on any oxygen reviewed CXR personally, has some chronic interstitial changes but has increased density in left base has been diuresing well with Lasix, but has not improved hypoxia reviewed labs, WBC normal, Cr stable, K low at 3.2 updated at the bedside Problem List Medical Problems: (1) Altered mental status Status: Acute (2) Dislodged Kirby catheter Status: Acute (3) Hypotension Status: Acute (4) Sepsis Status: Acute (5) Urethral laceration Status: Acute (6) UTI (urinary tract infection) Status: Acute Review of Systems Constitutional: + weakness Respiratory: + cough, + wheezing, + shortness of breath, + dyspnea on exertion All Other Systems: Reviewed and Negative Medications Current Inpatient Medications Medications (Trade) Dose Ordered Sig/Bob Route Start Time Stop Time Status Last Admin Dose Admin Albuterol (Ventolin Hfa Inhaler) 2 puffs Q6 INH 05/05/18 00:00 06/04/18 00:00 05/09/18 12:21 2 PUFFS Cetirizine HCl (zyrTEC TAB) 10 mg DAILY PO 05/05/18 09:00 06/04/18 08:59 05/09/18 08:49 10 MG Clopidogrel Bisulfate (plAVix TAB) 75 mg DAILY PO 05/05/18 09:00 06/04/18 08:59 05/09/18 08:51 75 MG Cyanocobalamin (Vitamin B-12 Tab) 1,000 mcg DAILY PO 05/05/18 09:00 06/04/18 08:59 05/09/18 08:53 1,000 MCG Escitalopram Oxalate (Lexapro Tab) 5 mg DAILY PO 05/05/18 09:00 06/04/18 08:59 05/09/18 08:51 5 MG Salmeterol Xinafoate/ Fluticasone (Advair Diskus 500/50 Inh) 1 puff BID INH 05/04/18 21:00 06/03/18 20:59 05/09/18 08:43 1 PUFF Galantamine Hydrobromide (Razadyne Cap) 16 mg DAILY PO 05/05/18 09:00 06/04/18 08:59 05/09/18 08:52 16 MG Montelukast Sodium (Singulair Tab) 10 mg DAILY PO 05/05/18 09:00 06/04/18 08:59 05/09/18 08:52 10 MG Ropinirole HCl (Requip Tab) 0.25 mg HS PO 05/04/18 21:00 06/03/18 20:59 05/08/18 21:54 0.25 MG Sodium Chloride (Osman 128 Oph Soln) 1 drops DAILY OPR 05/05/18 09:00 06/04/18 08:59 05/09/18 08:45 1 DROPS Tiotropium [place] (Spiriva Handihaler Inhaler) 1 puff DAILY INH 05/05/18 09:00 06/04/18 08:59 05/09/18 10:15 1 PUFF Miscellaneous Information (Order Awaiting Action) 1 ea QS N/A 05/05/18 00:00 06/04/18 00:00 Thiamine HCl 200 mg/Sodium Chloride 52 ml @ 208 mls/hr QAM IV 05/05/18 09:00 06/04/18 08:59 05/09/18 10:16 208 MLS/HR Heparin Sodium (Porcine) (Heparin Sq 5000 Unit/0.5ml) 5,000 unit Q8 SQ 05/05/18 06:00 06/04/18 05:59 05/09/18 14:14 5,000 UNIT Heparin Sodium (Porcine) (Heparin 10 Unit/ ml 5 ml Flush) 5 ml PRN PRN FLUSH 05/05/18 01:00 06/04/18 00:59 Furosemide (Lasix Tab) 20 mg QAM PO 05/07/18 08:00 06/06/18 08:59 05/09/18 08:52 20 MG Magnesium Hydroxide (Milk Of Magnesia Susp) 30 ml Q6H PRN PO 05/06/18 21:15 06/05/18 21:14 Piperacillin Sod/ Tazobactam Sod 3.375 gm/Dextrose 115 ml @ 28.75 mls/ hr Q8 IV 05/09/18 14:00 05/16/18 13:59 05/09/18 14:11 28.75 MLS/HR Miscellaneous Information (Consult) 1 ea UD PRN N/A 05/09/18 09:15 06/08/18 09:14 Potassium Chloride (Klor-Con M10) 10 meq TID PO 05/09/18 14:00 06/04/18 08:59 Methylprednisolone Sodium Succinate 50 mg/Syringe 0.8 ml @ 1.5 mls/min Q12 IV 05/09/18 21:00 06/08/18 20:59 Objective Vital Signs Date Time Temp Pulse Resp B/P (MAP) Pulse Ox O2 Delivery O2 Flow Rate FiO2 05/09/18 14:57 36.4 83 18 137/73 (94) 98 Nasal Cannula 5.0 05/09/18 08:00 Nasal Cannula 5.0 05/09/18 07:21 37.0 90 24 105/65 (78) 92 Nasal Cannula 5.0 05/09/18 00:02 Nasal Cannula 5.0 05/08/18 23:07 36.6 77 20 171/74 (106) 92 Nasal Cannula 5.0 05/08/18 20:20 Nasal Cannula 5.0 Physical Exam General Appearance: no apparent distress, + obese Eyes: normal inspection, EOMI, sclerae normal ENT: normal ENT inspection, hearing grossly normal, pharynx normal Neck: supple, no adenopathy, no JVD, trachea midline Respiratory/Chest: chest non-tender, no respiratory distress, no accessory muscle use, + wheezing (bilaterally on exhalation) Cardiovascular: regular rate, rhythm, no edema, no gallop, no JVD, no murmur Abdomen: normal bowel sounds, non tender, soft, no organomegaly Extremities: normal range of motion, non-tender, normal inspection, no pedal edema, no calf tenderness, pelvis stable Neurologic/Psychiatric: advanced practice registered nurse II-XII nml as tested, no motor/sensory deficits, alert, normal mood/affect, oriented x 3 Skin: normal color, warm/dry, no rash Laboratory Results Last 24 Hours Test 05/09/18 07:00 White Blood Count 8.42 K/uL Red Blood Count 3.83 M/uL Hemoglobin 12.5 g/dL Hematocrit 36.4 % Mean Corpuscular Volume 95.0 fL Mean Corpuscular Hemoglobin 32.6 pg Mean Corpuscular Hemoglobin Concent 34.3 g/dl Platelet Count 163 K/uL Mean Platelet Volume 10.0 fL Neutrophils (%) (Auto) 68.9 % Lymphocytes (%) (Auto) 16.0 % Monocytes (%) (Auto) 8.6 % Eosinophils (%) (Auto) 5.0 % Basophils (%) (Auto) 0.7 % Neutrophils # (Auto) 5.80 K/uL Lymphocytes # (Auto) 1.35 K/uL Monocytes # (Auto) 0.72 K/uL Eosinophils # (Auto) 0.42 K/uL Basophils # (Auto) 0.06 K/uL RDW Standard Deviation 49.2 fL RDW Coefficient of Variation 14.3 % Immature Granulocyte % (Auto) 0.8 % Immature Granulocyte # (Auto) 0.07 K/uL Sodium Level 139 mmol/L Potassium Level 3.2 mmol/L Chloride Level 105 mmol/L Carbon Dioxide Level 27 mmol/L Anion Gap 7.0 mmol/L Blood Urea Nitrogen 12 mg/dl Creatinine 0.91 mg/dl Est Creatinine Clear Calc Drug Dose 67.1 ml/min Estimated GFR () 88.1 Estimated GFR (Non- 76.0 BUN/Creatinine Ratio 13.0 Random Glucose 92 mg/dl Calcium Level 8.1 mg/dl Magnesium Level 1.8 mg/dl Assessment and Plan Septic shock in an 87 yo male with septic shock due to UTI - Septic shock due to UTI one out of three cultures with gram positive bacillus and GN bacillus, doubt significance urine culture grew E coli, sherwood sensitive WBC normal for two days, afebrile urine output adequate s/p cystoscopy and left ureteral stent placed for left hydronephrosis on 05/05 , has chronic UPJ obstruction treated with Zosyn and then Rocephin, changed to Keflex two days ago, will change back to Zosyn due to CXR findings for possible pneumonia needs to complete 14 days total - Acute hypoxia, likely COPD exacerbation and LLL pneumonia CXR today shows LLL infiltrate wheezing on exam, more pronounced today will start Solu Medrol 50mg q12, Zosyn, Albuterol follow for improvement, want to titrate down to 2L prior to d/c to SNF - DB: resolved, Cr stable for several days aggressive hydration initially continue home dose of Lasix 20mg, diuresing well - Type II NSTEMI due to demand ischemia troponin trended down quickly, no chest pain demand ischemia in the setting of hypotensive shock, no further work up planned - Restless leg syndrome, HTN: chronic issues - Hypokalemia: change potassium to 10mEq TID Code Level 5 DVT prophylaxis: Heparin SC Plan: try to improve hypoxia, treat pneumonia and COPD exacerbation, eventually to [facility] for subacute rehab
[2018-05-09] MEDS: METHYLPREDNISOLONE IV 50 MG in SYRINGE 0 ML IV SCH (20:34)
[2018-05-09] MEDS: ROPINIROLE HCL 0.25 MG TAB PO SCH (21:36)
[2018-05-09 23:19] VITALS: BP 120/71; PULSE 92; TEMP 36.2; O2SAT 98
[2018-05-10] MEDS: ALBUTEROL HFA 8 GM INHALER INH SCH ×3 (05:35→17:46)
[2018-05-10] MEDS: HEPARIN SOD 5000 UNIT/0.5 ML CARP SQ SCH ×3 (05:36→21:05)
[2018-05-10] MEDS: PIPERACILL/TAZOBAC IV 3.375 GM in DEXTROSE 5% 100ML 100 ML IV SCH ×3 (05:38→21:53)
[2018-05-10 06:08] VITALS: O2SAT 97
[2018-05-10 07:44] VITALS: BP 132/73; PULSE 67; TEMP 36.8; O2SAT 94
[2018-05-10] MEDS: CETIRIZINE HCL 10 MG TAB PO SCH (08:38)
[2018-05-10] MEDS: MONTELUKAST SOD 10 MG TAB PO SCH (08:38)
[2018-05-10] MEDS: GALANTAMINE HYDROBROMIDE 8 MG CAPER PO SCH (08:38)
[2018-05-10] MEDS: SODIUM CHLORIDE 5% OP SOLN 15 ML BTL OPR SCH (08:38)
[2018-05-10] MEDS: FLUTICASONE/SALMETEROL (ADVAIR) 500/50 INH 14 PUFF INH SCH ×2 (08:38→21:01)
[2018-05-10] MEDS: TIOTROPIUM BROMIDE 5 PUFF/90 MCG INH INH SCH (08:38)
[2018-05-10] MEDS: ESCITALOPRAM OXALATE 10 MG TAB PO SCH (08:38)
[2018-05-10] MEDS: CLOPIDOGREL BISULFATE 75 MG TAB PO SCH (08:38)
[2018-05-10] MEDS: METHYLPREDNISOLONE IV 50 MG in SYRINGE 0 ML IV SCH ×2 (08:38→21:01)
[2018-05-10] MEDS: CYANOCOBALAMIN 500 MCG TAB (VIT B-12) PO SCH (08:38)
[2018-05-10] MEDS: FUROSEMIDE 20 MG TAB PO SCH (08:38)
[2018-05-10] MEDS: POTASSIUM CHLORIDE 10 MEQ TABCR PO SCH ×3 (08:39→21:02)
[2018-05-10] MEDS: THIAMINE HCL INJ 200 MG in SODIUM CHLORIDE 0.9% 50ML 50 ML IV SCH (08:46)
--- NOTE | 2018-05-10 12:15 | Progress Note ---
Subjective Date of Service: May 10, 2018. Subjective Pt evaluation today including: conversation w/ patient, conversation w/ family , physical exam, review of inpatient medication list Pain: no pain PO Intake: adequate Voiding: requires PRN straight cath patient sitting up at edge of bed, breathing better today on exam he has no wheezing, responding well to steroids discussed going home tomorrow, he is in agreement no labs today, will check tomorrow updated at the bedside Problem List Medical Problems: (1) Altered mental status Status: Acute (2) Dislodged Kirby catheter Status: Acute (3) Hypotension Status: Acute (4) Sepsis Status: Acute (5) Urethral laceration Status: Acute (6) UTI (urinary tract infection) Status: Acute Review of Systems Constitutional: + weakness, + fatigue Respiratory: + cough, + dyspnea on exertion All Other Systems: Reviewed and Negative Medications Current Inpatient Medications Medications (Trade) Dose Ordered Sig/Bob Route Start Time Stop Time Status Last Admin Dose Admin Albuterol (Ventolin Hfa Inhaler) 2 puffs Q6 INH 05/05/18 00:00 06/04/18 00:00 05/10/18 11:47 2 PUFFS Cetirizine HCl (zyrTEC TAB) 10 mg DAILY PO 05/05/18 09:00 06/04/18 08:59 05/10/18 08:38 10 MG Clopidogrel Bisulfate (plAVix TAB) 75 mg DAILY PO 05/05/18 09:00 06/04/18 08:59 05/10/18 08:38 75 MG Cyanocobalamin (Vitamin B-12 Tab) 1,000 mcg DAILY PO 05/05/18 09:00 06/04/18 08:59 05/10/18 08:38 1,000 MCG Escitalopram Oxalate (Lexapro Tab) 5 mg DAILY PO 05/05/18 09:00 06/04/18 08:59 05/10/18 08:38 5 MG Salmeterol Xinafoate/ Fluticasone (Advair Diskus 500/50 Inh) 1 puff BID INH 05/04/18 21:00 06/03/18 20:59 05/10/18 08:38 1 PUFF Galantamine Hydrobromide (Razadyne Cap) 16 mg DAILY PO 05/05/18 09:00 06/04/18 08:59 05/10/18 08:38 16 MG Montelukast Sodium (Singulair Tab) 10 mg DAILY PO 05/05/18 09:00 06/04/18 08:59 05/10/18 08:38 10 MG Ropinirole HCl (Requip Tab) 0.25 mg HS PO 05/04/18 21:00 06/03/18 20:59 05/09/18 21:36 0.25 MG Sodium Chloride (Osman 128 Oph Soln) 1 drops DAILY OPR 05/05/18 09:00 06/04/18 08:59 05/10/18 08:38 1 DROPS Tiotropium [place] (Spiriva Handihaler Inhaler) 1 puff DAILY INH 05/05/18 09:00 06/04/18 08:59 05/10/18 08:38 1 PUFF Miscellaneous Information (Order Awaiting Action) 1 ea QS N/A 05/05/18 00:00 06/04/18 00:00 Thiamine HCl 200 mg/Sodium Chloride 52 ml @ 208 mls/hr QAM IV 05/05/18 09:00 06/04/18 08:59 05/10/18 08:46 208 MLS/HR Heparin Sodium (Porcine) (Heparin Sq 5000 Unit/0.5ml) 5,000 unit Q8 SQ 05/05/18 06:00 06/04/18 05:59 05/10/18 05:36 5,000 UNIT Heparin Sodium (Porcine) (Heparin 10 Unit/ ml 5 ml Flush) 5 ml PRN PRN FLUSH 05/05/18 01:00 06/04/18 00:59 Furosemide (Lasix Tab) 20 mg QAM PO 05/07/18 08:00 06/06/18 08:59 05/10/18 08:38 20 MG Magnesium Hydroxide (Milk Of Magnesia Susp) 30 ml Q6H PRN PO 05/06/18 21:15 06/05/18 21:14 Piperacillin Sod/ Tazobactam Sod 3.375 gm/Dextrose 115 ml @ 28.75 mls/ hr Q8 IV 05/09/18 14:00 05/16/18 13:59 05/10/18 05:38 28.75 MLS/HR Miscellaneous Information (Consult) 1 ea UD PRN N/A 7/13/18 09:15 06/08/18 09:14 Potassium Chloride (Klor-Con M10) 10 meq TID PO 05/09/18 14:00 06/04/18 08:59 05/10/18 08:39 10 MEQ Methylprednisolone Sodium Succinate 50 mg/Syringe 0.8 ml @ 1.5 mls/min Q12 IV 05/09/18 21:00 06/08/18 20:59 05/10/18 08:38 1.5 MLS/MIN Objective Vital Signs Date Time Temp Pulse Resp B/P (MAP) Pulse Ox O2 Delivery O2 Flow Rate FiO2 05/10/18 08:00 Nasal Cannula 3.0 05/10/18 07:44 36.8 67 18 132/73 (92) 94 3.0 05/10/18 06:08 97 Nasal Cannula 3.0 05/09/18 23:19 36.2 92 18 120/71 (87) 98 CPAP 05/09/18 20:00 Nasal Cannula 5.0 05/09/18 14:57 36.4 83 18 137/73 (94) 98 Nasal Cannula 5.0 Physical Exam General Appearance: no apparent distress, + obese Eyes: normal inspection, EOMI, sclerae normal ENT: normal ENT inspection, hearing grossly normal, pharynx normal Neck: supple, no adenopathy, no JVD, trachea midline Respiratory/Chest: chest non-tender, lungs clear (no wheezing today), normal breath sounds, no respiratory distress, no accessory muscle use Cardiovascular: regular rate, rhythm, no edema, no gallop, no JVD, no murmur Abdomen: normal bowel sounds, non tender, soft, no organomegaly Extremities: normal range of motion, non-tender, normal inspection, no pedal edema, no calf tenderness, pelvis stable Neurologic/Psychiatric: business solutions consultant II-XII nml as tested, no motor/sensory deficits, alert, normal mood/affect, oriented x 3 Skin: normal color, warm/dry, no rash Assessment and Plan Septic shock in an 87 yo male with septic shock due to UTI - Septic shock due to UTI one out of three cultures with gram positive bacillus and GN bacillus, doubt significance urine culture grew E coli, sherwood sensitive WBC normal for two days, afebrile urine output adequate s/p cystoscopy and left ureteral stent placed for left hydronephrosis on 05/05 , has chronic UPJ obstruction treated with Zosyn and then Rocephin, changed to Keflex then changed back to Zosyn due to CXR findings for possible pneumonia needs to complete 14 days total plan to stop Zosyn this evening since lungs are improved, change to Ceftin tomorrow last day of antibiotics would be 05/18 - Acute hypoxia, likely COPD exacerbation and LLL pneumonia CXR 05/09 showed LLL infiltrate had wheezing on exam on 05/09 today lungs are clear, no distress, less oxygen requirements, down to 3L will stop Solu Medrol 50mg q12 after dose tonight change Zosyn to Ceftin starting tomorrow follow for improvement, want to titrate down to 2L prior to d/c to SNF, on 3L today - DB: resolved, Cr stable for several days aggressive hydration initially continue home dose of Lasix 20mg, diuresing well examines euvolemic today - Type II NSTEMI due to demand ischemia troponin trended down quickly, no chest pain demand ischemia in the setting of hypotensive shock, no further work up planned - Restless leg syndrome, HTN: chronic issues - Hypokalemia: change potassium to 10mEq TID Code Level 5 DVT prophylaxis: Heparin SC Plan: likely for d/c tomorrow to [facility] for rehab
[2018-05-10] MEDS: DUTASTERIDE 0.5MG PO SCH (13:44)
[2018-05-10 15:47] VITALS: BP 110/65; PULSE 75; TEMP 36.4; O2SAT 94; O2SAT 98
[2018-05-10] MEDS: ROPINIROLE HCL 0.25 MG TAB PO SCH (21:02)
[2018-05-10 23:44] VITALS: BP 119/65; PULSE 75; O2SAT 96
[2018-05-11] MEDS: HEPARIN SOD 5000 UNIT/0.5 ML CARP SQ SCH ×3 (06:00→20:30)
[2018-05-11] MEDS: ALBUTEROL HFA 8 GM INHALER INH SCH ×5 (06:16→17:59)
[2018-05-11 06:29] LABS: HEMATOCRIT 35.8 % (42-52); HEMOGLOBIN 12.2 g/dL (14.0-18.0); MEAN CELL VOLUME 95.5 fL (80-100); MEAN CORPUSCULAR HEMOGLOBIN 32.5 pg (25-34); MEAN CORPUSCULAR HGB CONC 34.1 g/dl (32-36); MEAN PLATELET VOLUME 10.4 fL (7.4-10.4); PLATELET COUNT 251 K/uL (130-400); RED CELL DISTRIBUTION WIDTH CV 14.2 % (11.5-14.5); RED CELL DISTRIBUTION WIDTH SD 49.3 fL (36.4-46.3); WHITE BLOOD COUNT 7.94 K/uL (4.8-10.8)
[2018-05-11 06:30] LABS: BASO % 0.1 %; BASO ABS # 0.01 K/uL (0-0.2); IG# 0.05 K/uL (0.00-0.02); LYMPH % 8.3 %; LYMPH ABS # 0.66 K/uL (1.2-3.4); MONO % 4.5 %; MONO ABS # 0.36 K/uL (0.11-0.59); NEUT % 86.5 %; NEUT ABS # 6.86 K/uL (1.4-6.5)
[2018-05-11 06:41] LABS: CALCIUM 7.8 mg/dl (8.5-10.1); CREATININE 1.05 mg/dl (0.60-1.40); POTASSIUM 3.9 mmol/L (3.5-5.1)
[2018-05-11] MEDS: POTASSIUM CHLORIDE 10 MEQ TABCR PO SCH ×3 (07:21→20:23)
[2018-05-11] MEDS: TIOTROPIUM BROMIDE 5 PUFF/90 MCG INH INH SCH (07:21)
[2018-05-11] MEDS: FLUTICASONE/SALMETEROL (ADVAIR) 500/50 INH 14 PUFF INH SCH ×2 (07:21→20:22)
[2018-05-11] MEDS: CYANOCOBALAMIN 500 MCG TAB (VIT B-12) PO SCH (07:21)
[2018-05-11] MEDS: CETIRIZINE HCL 10 MG TAB PO SCH (07:22)
[2018-05-11] MEDS: ESCITALOPRAM OXALATE 10 MG TAB PO SCH (07:22)
[2018-05-11] MEDS: MONTELUKAST SOD 10 MG TAB PO SCH (07:22)
[2018-05-11] MEDS: GALANTAMINE HYDROBROMIDE 8 MG CAPER PO SCH (07:22)
[2018-05-11] MEDS: CEFUROXIME AXETIL 500 MG TAB PO SCH ×2 (07:22→20:22)
[2018-05-11] MEDS: CLOPIDOGREL BISULFATE 75 MG TAB PO SCH (07:22)
[2018-05-11] MEDS: SODIUM CHLORIDE 5% OP SOLN 15 ML BTL OPR SCH (07:23)
[2018-05-11] MEDS: FUROSEMIDE 20 MG TAB PO SCH (07:23)
[2018-05-11] MEDS: DUTASTERIDE 0.5MG PO SCH (07:23)
[2018-05-11] MEDS: THIAMINE HCL INJ 200 MG in SODIUM CHLORIDE 0.9% 50ML 50 ML IV SCH (07:27)
[2018-05-11 07:34] VITALS: BP 139/68; PULSE 66; TEMP 36.5; O2SAT 97
[2018-05-11] MEDS ORDERED: CEFU1TAB35 PO (10:47)
--- NOTE | 2018-05-11 11:52 | Progress Note ---
Subjective Date of Service: May 11, 2018. Subjective Pt evaluation today including: conversation w/ patient, physical exam, lab review, review of inpatient medication list Pain: no pain PO Intake: adequate Voiding: requires PRN straight cath patient feeling well, titrated off of oxygen this morning, breathing is stable labs reviewed, CBC and BMP normal patient was dressed and ready to go home, explained that we needed insurance authorization for Dionte here at the bedside patient understands that he is not leaving until tomorrow Problem List Medical Problems: (1) Altered mental status Status: Acute (2) Dislodged Kirby catheter Status: Acute (3) Hypotension Status: Acute (4) Sepsis Status: Acute (5) Urethral laceration Status: Acute (6) UTI (urinary tract infection) Status: Acute Review of Systems Constitutional: + weakness, + fatigue Respiratory: + dyspnea on exertion Neurologic: + balance problems All Other Systems: Reviewed and Negative Medications Current Inpatient Medications Medications (Trade) Dose Ordered Sig/Bob Route Start Time Stop Time Status Last Admin Dose Admin Albuterol (Ventolin Hfa Inhaler) 2 puffs Q6 INH 05/05/18 00:00 06/04/18 00:00 05/11/18 06:17 2 PUFFS Cetirizine HCl (zyrTEC TAB) 10 mg DAILY PO 05/05/18 09:00 06/04/18 08:59 05/11/18 07:22 10 MG Clopidogrel Bisulfate (plAVix TAB) 75 mg DAILY PO 05/05/18 09:00 06/04/18 08:59 05/11/18 07:22 75 MG Cyanocobalamin (Vitamin B-12 Tab) 1,000 mcg DAILY PO 05/05/18 09:00 06/04/18 08:59 05/11/18 07:21 1,000 MCG Escitalopram Oxalate (Lexapro Tab) 5 mg DAILY PO 05/05/18 09:00 06/04/18 08:59 05/11/18 07:22 5 MG Salmeterol Xinafoate/ Fluticasone (Advair Diskus 500/50 Inh) 1 puff BID INH 05/04/18 21:00 06/03/18 20:59 05/11/18 07:21 1 PUFF Galantamine Hydrobromide (Razadyne Cap) 16 mg DAILY PO 05/05/18 09:00 06/04/18 08:59 05/11/18 07:22 16 MG Montelukast Sodium (Singulair Tab) 10 mg DAILY PO 05/05/18 09:00 06/04/18 08:59 05/11/18 07:22 10 MG Ropinirole HCl (Requip Tab) 0.25 mg HS PO 05/04/18 21:00 06/03/18 20:59 05/10/18 21:02 0.25 MG Sodium Chloride (Osman 128 Oph Soln) 1 drops DAILY OPR 05/05/18 09:00 06/04/18 08:59 05/11/18 07:23 1 DROPS Tiotropium [place] (Spiriva Handihaler Inhaler) 1 puff DAILY INH 05/05/18 09:00 06/04/18 08:59 05/11/18 07:21 1 PUFF Thiamine HCl 200 mg/Sodium Chloride 52 ml @ 208 mls/hr QAM IV 05/05/18 09:00 06/04/18 08:59 05/11/18 07:27 208 MLS/HR Heparin Sodium (Porcine) (Heparin Sq 5000 Unit/0.5ml) 5,000 unit Q8 SQ 05/05/18 06:00 06/04/18 05:59 05/10/18 21:05 5,000 UNIT Heparin Sodium (Porcine) (Heparin 10 Unit/ ml 5 ml Flush) 5 ml PRN PRN FLUSH 05/05/18 01:00 06/04/18 00:59 Furosemide (Lasix Tab) 20 mg QAM PO 05/07/18 08:00 06/06/18 08:59 05/11/18 07:23 20 MG Magnesium Hydroxide (Milk Of Magnesia Susp) 30 ml Q6H PRN PO 05/06/18 21:15 06/05/18 21:14 Potassium Chloride (Klor-Con M10) 10 meq TID PO 05/09/18 14:00 06/04/18 08:59 05/11/18 07:21 10 MEQ Prednisone (PredniSONE TAB) 40 mg QAM PO 05/11/18 08:00 06/10/18 07:59 05/11/18 07:23 40 MG Cefuroxime Axetil (Ceftin Tab) 500 mg BID PO 05/11/18 09:00 05/18/18 08:59 05/11/18 07:22 500 MG Dutasteride (Avodart) 0.5 mg DAILY PO 05/10/18 14:00 06/09/18 13:59 05/11/18 07:23 0.5 MG Objective Vital Signs Date Time Temp Pulse Resp B/P (MAP) Pulse Ox O2 Delivery O2 Flow Rate FiO2 05/11/18 08:00 Nasal Cannula 3.0 05/11/18 07:34 36.5 66 16 139/68 (91) 97 3.0 05/11/18 00:00 CPAP 05/10/18 23:44 75 20 119/65 (83) 96 BiPAP 05/10/18 15:47 36.4 75 20 110/65 (80) 98 Nasal Cannula 2.5 05/10/18 15:47 94 Nasal Cannula 3.0 Physical Exam General Appearance: WD/WN, no apparent distress Eyes: normal inspection, EOMI, sclerae normal ENT: normal ENT inspection, hearing grossly normal, pharynx normal Neck: supple, no adenopathy, no JVD, trachea midline Respiratory/Chest: chest non-tender, lungs clear, normal breath sounds, no respiratory distress, no accessory muscle use Cardiovascular: regular rate, rhythm, no edema, no gallop, no JVD, no murmur Abdomen: normal bowel sounds, non tender, soft, no organomegaly Extremities: normal range of motion, non-tender, normal inspection, no pedal edema, no calf tenderness, pelvis stable Neurologic/Psychiatric: fibreglass gun hand II-XII nml as tested, no motor/sensory deficits, alert, normal mood/affect, oriented x 3 Skin: normal color, warm/dry, no rash Lymphatic: no adenopathy Laboratory Results Last 24 Hours Test 05/11/18 05:13 White Blood Count 7.94 K/uL Red Blood Count 3.75 M/uL Hemoglobin 12.2 g/dL Hematocrit 35.8 % Mean Corpuscular Volume 95.5 fL Mean Corpuscular Hemoglobin 32.5 pg Mean Corpuscular Hemoglobin Concent 34.1 g/dl Platelet Count 251 K/uL Mean Platelet Volume 10.4 fL Neutrophils (%) (Auto) 86.5 % Lymphocytes (%) (Auto) 8.3 % Monocytes (%) (Auto) 4.5 % Eosinophils (%) (Auto) 0.0 % Basophils (%) (Auto) 0.1 % Neutrophils # (Auto) 6.86 K/uL Lymphocytes # (Auto) 0.66 K/uL Monocytes # (Auto) 0.36 K/uL Eosinophils # (Auto) 0.00 K/uL Basophils # (Auto) 0.01 K/uL RDW Standard Deviation 49.3 fL RDW Coefficient of Variation 14.2 % Immature Granulocyte % (Auto) 0.6 % Immature Granulocyte # (Auto) 0.05 K/uL Sodium Level 140 mmol/L Potassium Level 3.9 mmol/L Chloride Level 107 mmol/L Carbon Dioxide Level 24 mmol/L Anion Gap 9.0 mmol/L Blood Urea Nitrogen 22 mg/dl Creatinine 1.05 mg/dl Est Creatinine Clear Calc Drug Dose 58.1 ml/min Estimated GFR () 74.1 Estimated GFR (Non- 64.0 BUN/Creatinine Ratio 21.0 Random Glucose 138 mg/dl Calcium Level 7.8 mg/dl Assessment and Plan Septic shock in an 87 yo male with septic shock due to UTI - Septic shock due to UTI one out of three cultures with gram positive bacillus and GN bacillus, doubt significance urine culture grew E coli, sherwood sensitive WBC normal for two days, afebrile urine output adequate s/p cystoscopy and left ureteral stent placed for left hydronephrosis on 05/05 , has chronic UPJ obstruction treated with Zosyn and then Rocephin, changed to Keflex then changed back to Zosyn due to CXR findings for possible pneumonia needs to complete 14 days total transition to Ceftin today last day of antibiotics would be 05/18 - Acute hypoxia, likely COPD exacerbation and LLL pneumonia CXR 05/09 showed LLL infiltrate had wheezing on exam on 05/09 lungs have been clear since starting steroids, titrated to room air today Prednisone 40mg daily, quick taper over next few days, takes 7mg chronically continue Ceftin - DB: resolved, Cr stable for several days aggressive hydration initially continue home dose of Lasix 20mg, diuresing well examines euvolemic today - Type II NSTEMI due to demand ischemia troponin trended down quickly, no chest pain demand ischemia in the setting of hypotensive shock, no further work up planned - Restless leg syndrome, HTN: chronic issues - Hypokalemia: change potassium to 10mEq TID Code Level 5 DVT prophylaxis: Heparin SC Plan: will need updated PT/OT notes today, plan for [facility] tomorrow with insurance authorization
[2018-05-11 15:01] VITALS: BP 151/70; PULSE 85; TEMP 36.5; O2SAT 90
[2018-05-11] MEDS: ROPINIROLE HCL 0.25 MG TAB PO SCH (20:23)
[2018-05-11 23:42] VITALS: BP 139/74; PULSE 70; TEMP 36.9; O2SAT 94
[2018-05-12] MEDS: ALBUTEROL HFA 8 GM INHALER INH SCH ×3 (05:37→12:17)
[2018-05-12] MEDS: HEPARIN SOD 5000 UNIT/0.5 ML CARP SQ SCH ×2 (05:41→14:00)
[2018-05-12 07:32] VITALS: BP 120/67; PULSE 62; TEMP 36.8; O2SAT 90
[2018-05-12] MEDS: CYANOCOBALAMIN 500 MCG TAB (VIT B-12) PO SCH (08:05)
[2018-05-12] MEDS: POTASSIUM CHLORIDE 10 MEQ TABCR PO SCH ×2 (08:05→14:00)
[2018-05-12] MEDS: MONTELUKAST SOD 10 MG TAB PO SCH (08:05)
[2018-05-12] MEDS: CEFUROXIME AXETIL 500 MG TAB PO SCH (08:05)
[2018-05-12] MEDS: FUROSEMIDE 20 MG TAB PO SCH (08:05)
[2018-05-12] MEDS: CLOPIDOGREL BISULFATE 75 MG TAB PO SCH (08:05)
[2018-05-12] MEDS: CETIRIZINE HCL 10 MG TAB PO SCH (08:05)
[2018-05-12] MEDS: ESCITALOPRAM OXALATE 10 MG TAB PO SCH (08:06)
[2018-05-12] MEDS: FLUTICASONE/SALMETEROL (ADVAIR) 500/50 INH 14 PUFF INH SCH (08:06)
[2018-05-12] MEDS: SODIUM CHLORIDE 5% OP SOLN 15 ML BTL OPR SCH (08:06)
[2018-05-12] MEDS: GALANTAMINE HYDROBROMIDE 8 MG CAPER PO SCH (08:06)
[2018-05-12] MEDS: TIOTROPIUM BROMIDE 5 PUFF/90 MCG INH INH SCH (08:06)
[2018-05-12] MEDS: DUTASTERIDE 0.5MG PO SCH (08:06)
[2018-05-12] MEDS: THIAMINE HCL INJ 200 MG in SODIUM CHLORIDE 0.9% 50ML 50 ML IV SCH (08:10)
[2018-05-12] MEDS ORDERED: PRED10TA PO (10:20)
--- NOTE | 2018-05-12 10:25 | Discharge Instructions ---
Discharge Instructions Date of Service May 12, 2018. Admission Reason for Admission: Septic Shock Due To Urinary Tract Infection Discharge Discharge Diagnosis / Problem: Septic shock from UTI, pneumonia, COPD exacerbation Discharge Goals Goal(s): Improve function, Improve disease control Activity Recommendations Activity Level: OOB In Chair Therapies: Physical Therapy, Occupational Therapy Lifting Limitations: none Exercise/Sports Limitations: as tolerated Shower/Bathe: no limitations . Additional Information Patient informed of condition: Yes Advance Directives: Yes DNR: Yes Level of Care: Skilled Communicable Disease: No Prognosis: Improving Oxygen at (LPM): 2-3L Kirby Catheter: No Instructions / Follow-Up Instructions / Follow-Up Medications: - CEFTIN: take twice a day until 05/18, last dose would be in the evening on that day - PREDNISONE: starting tomorrow, 40mg daily x 2 days, 30mg x 2 days, 20mg x 2 days, 10mg x 2 days then resume 7mg daily Septic shock in an 87 yo male with septic shock due to UTI - Septic shock due to UTI urine culture grew E coli, sherwood sensitive WBC normal for three days, afebrile urine output adequate, requires straight catheterization twice a day s/p cystoscopy and left ureteral stent placed for left hydronephrosis on 05/05 , has chronic UPJ obstruction treated with Zosyn and then Rocephin, changed to Keflex then changed back to Zosyn due to CXR findings for possible pneumonia needs to complete 14 days total transitioned to Ceftin last day of antibiotics would be 05/18 - Acute hypoxia, likely COPD exacerbation and LLL pneumonia CXR 05/09 showed LLL infiltrate had wheezing on exam on 05/09 lungs have been clear since starting steroids, requires 2-3L intermittently while sleeping and during the day Prednisone 40mg daily, quick taper over next 8 days, takes 7mg chronically continue Ceftin until 05/18 FOLLOW UP - physician at [facility] this week - Dr. Mueller with urology, call their office to confirm appointment for this week Current Hospital Diet Patient's current hospital diet: Renal Diet Discharge Diet Recommended Diet: Renal Diet Procedures Procedures Performed: Cystoscopy with left stent placement and retrograde pyelogram Pending Studies Studies pending at discharge: no Physician Orders On Transfer POLST Discussion: Not Applicable Medical Emergencies . Who to Call and When: Medical Emergencies: If at any time you feel your situation is an emergency, please call 911 immediately. . Non-Emergent Contact Non-Emergency issues call your: Primary Care Provider Call Non-Emergent contact if: you have a fever, you have any medication questions . . "Provider Documentation" section prepared by Maximiliano Casas. . Core Measure Problem Core Measures: None [place] Drug Monitoring Program Search Results: no issues identified
[2018-05-12 10:48] VITALS: BP 120/67; PULSE 62; TEMP 36.8; O2SAT 90
--- NOTE | 2018-05-17 20:33 | Discharge Summary ---
Discharge Summary Date of Service May 12, 2018. Discharge Summary Admission Date: May 04, 2018 at 19:38 Discharge Date: May 12, 2018 Discharge Disposition: intermediate facility Principal Diagnosis: UTI with septic shock Problems/Secondary Diagnoses: Pneumonia COPD exacerbation Acute hypoxic respiratory failure Immunizations: Have You Had Influenza Vaccine: Yes Influenza Vaccine Date: Jul 28, 2012 History of Tetanus Vaccine?: Yes History of Pneumococcal: Yes Pneumococcal Date: Jan 01, 2011 History of Hepatitis B Vaccine: Yes Procedures: Cystoscopy with left ureteral stent Consultations: Critical care Urology Medication Reconciliation New Medications: Prednisone (Prednisone) 10 Mg Tab 40 MG PO DAILY for 8 Days, #20 TAB 40mg x 2 days, 30mg x 2 days, 20mg x 2 days, 10mg x 2 days then resume home dose of 7mg Cefuroxime Axetil (Cefuroxime Axetil) 500 Mg Tab 500 MG PO BID, #14 TAB 0 Refills Continued Medications: Albuterol Hfa (Ventolin Hfa) 200 Puffs/91133 Mcg Aers 2-4 PUFFS INH Q6H, #1 INHALER Cetirizine Hcl (Zyrtec) 10 Mg Tab 10 MG PO DAILY, TAB Clopidogrel (Plavix) 75 Mg Tab 75 MG PO DAILY, TAB Cyanocobalamin (Vitamin B-12) 1,000 Mcg Tab 1000 MCG PO DAILY, TAB Dutasteride (Avodart) 0.5 Mg Cap 0.5 MG PO DAILY, CAP Epinephrine (Epipen) 0.3 Mg/0.3 Ml Inj 0.3 MG IM UD Escitalopram Oxalate (Lexapro) 5 Mg Tab 5 MG PO DAILY, TAB Fluticasone Prop/Salmeterol (Advair Diskus 500/50 60 Dose) 1 Ea Aerp 1 PUFF INH BID, INHALER Furosemide (Lasix) 40 Mg Tab 20 MG PO DAILY, TAB Galantamine Hydrobromide (Razadyne Ext Rel) 16 Mg Cap 16 MG PO DAILY, CAP Methenamine Hippurate (Methenamine Hippurate) 1 Gm Tab 1 GM PO DAILY Montelukast Sodium (Singulair) 10 Mg Tab 10 MG PO DAILY, TAB Potassium Chloride (Micro-K Ext Rel) 10 Meq Capcr 10 MEQ PO DAILY, CAP Ropinirole (Requip) 0.25 Mg Tab 0.25 MG PO HS, TAB Sodium Chloride Hypertonic (Sodium Chloride Opthalmic) 5 % Eri 1 DROP OPR DAILY Tiotropium [place] (Spiriva Handihaler) 30 Puff/540 Mcg Aerp 1 CAP INH DAILY, INHALER Discharge Exam Patient feeling quite well, ready to go to [facility] for rehabilitation. No fever/chills, breathing well, no cough. Appetite normal, moving bowels. Still performing straight catheterizations by himself. Updated his prior to discharge. Review of Systems: Constitutional: + weakness, No fever, No chills, No sweats, No weight loss, No fatigue, No problem reported Eyes: No worsening of vision, No eye pain, No redness, No discharge, No diplopia, No problem reported ENT: No hearing loss, No unusual epistaxis, No nasal symptoms, No sore throat, No tinnitus, No dental problems, No trouble swallowing, No problem reported Respiratory: No cough, No sputum, No wheezing, No shortness of breath, No dyspnea on exertion, No dyspnea at rest, No hemoptysis, No problem reported Cardiovascular: No chest pain, No orthopnea, No PND, No edema, No claudication, No palpitations, No problem reported Abdomen: No pain, No nausea, No vomiting, No diarrhea, No constipation, No GI bleeding, No problem reported Musculoskeletal: No joint pain, No muscle pain, No swelling, No calf pain, No problem reported Genitourinary - Male: + urinary retention, No hematuria, No dysuria, No urinary frequency, No urinary urgency, No urinary hesitancy Neurologic: + weakness, No memory loss, No paralysis, No numbness/tingling, No vertigo, No balance problems, No problem reported Psychiatric: No depression symptoms, No anhedonism, No anxiety, No insomnia , No substance abuse, No problem reported Endocrine: No fatigue, No excessive thirst, No excessive urination, No problem reported Hematologic / Lymphatic: No abnormal bleeding/bruising, No clotting problems , No swollen lymph nodes, No night sweats, No problem reported Integumentary: No rash, No itch, No new/changing skin lesions, No color change, No bleeding, No problem reported Physical Exam: General Appearance: no apparent distress, + obese Eyes: normal inspection, EOMI, sclerae normal ENT: normal ENT inspection, hearing grossly normal, pharynx normal Neck: supple, no adenopathy, no JVD, trachea midline Respiratory/Chest: chest non-tender, lungs clear, normal breath sounds, no respiratory distress, no accessory muscle use Cardiovascular: regular rate, rhythm, no edema, no gallop, no JVD, no murmur , normal peripheral pulses Abdomen / GI: normal bowel sounds, non tender, soft, no organomegaly Extremities: normal inspection, no calf tenderness, normal capillary refill , no pedal edema, normal range of motion Neurologic/Psychiatric: automatic buffer II-XII nml as tested, no motor/sensory deficits , alert, normal mood/affect, normal reflexes, oriented x 3 Skin: normal color, warm/dry, no rash Hospital Course Septic shock in an 87 yo male with septic shock due to UTI - Septic shock due to UTI one out of three cultures with gram positive bacillus and GN bacillus, doubt significance urine culture grew E coli, sherwood sensitive WBC normal for three days, afebrile urine output adequate s/p cystoscopy and left ureteral stent placed for left hydronephrosis on 05/05 , has chronic UPJ obstruction treated with Zosyn and then Rocephin, changed to Keflex then changed back to Zosyn due to CXR findings for possible pneumonia needs to complete 14 days total transition to Ceftin day prior to discharge last day of antibiotics would be 05/[address] Mueller - Acute hypoxia, likely COPD exacerbation and LLL pneumonia CXR 05/09 showed LLL infiltrate had wheezing on exam on 05/09 lungs have been clear since starting steroids, titrated to room air day prior to discharge but then also requiring 2 liters intermittently Prednisone 40mg daily, quick taper over next 8 days, takes 7mg chronically continue Ceftin - DB: resolved, Cr stable for several days aggressive hydration initially continue home dose of Lasix 20mg, diuresing well examines euvolemic today - Type II NSTEMI due to demand ischemia troponin trended down quickly, no chest pain demand ischemia in the setting of hypotensive shock, no further work up planned - Restless leg syndrome, HTN: chronic issues - Hypokalemia: change potassium to 10mEq TID while inpatient, K stable prior to discharge Code Level 5 DVT prophylaxis: Heparin SC Total Time Spent: Greater than 30 minutes This includes examination of the patient, discharge planning, medication reconciliation, and communication with other providers. Discharge Instructions Please refer to the electronic Patient Visit Report (Discharge Instructions) for additional information. Follow-Up physician at [facility] Dr. Mueller in one week Additional Copies To Medhi Mueller M.D.; Stewart Rapp
--- NOTE | 2018-05-19 12:01 | Critical Care Consultation ---
Critical Care Consultation Date of Consultation: May 04, 2018. Attending Physician: Mikel Stahl M.D. Reason for Consultation: Septic shock History of Present Illness History is obtained from prior medical records and the emergency department physician. Patient is an 87-year-old male who presented to [facility] emergency department with a chief complaint of generalized weakness beginning this morning. Per report patient had a temp of 100.4 and was extremely lethargic sleeping all day. Patient had one episode of diarrhea today without melena or hematochezia. Per EMS reports the patient was hypotensive and received 1 L of normal saline in route to the hospital. Past Medical/Surgical History COPD History duodenal ulcer Asthma Dementia History spinal stenosis History tonsillectomy Family History Diabetes mellitus Social History Smoking Status: Never Smoker Drug Use: none Marital Status: Housing Status: assisted living Occupation Status: retired Allergies Coded Allergies: Hydroxyzine (Verified Allergy, Unknown, swelling, 05/04/18) Midazolam (Verified Allergy, Unknown, apneic, 05/04/18) Paroxetine (Verified Allergy, Unknown, unknown, 05/04/18) Sulfa Antibiotics (Verified Allergy, Unknown, UNKNOWN, 05/04/18) Lorazepam (Verified Adverse Reaction, Unknown, flushes, 05/04/18) Naproxen (Verified Adverse Reaction, Unknown, GI distress, 05/04/18) Home Medications Scheduled Albuterol Hfa (Ventolin Hfa), 2-4 PUFFS INH Q6H Cefuroxime Axetil (Cefuroxime Axetil), 500 MG PO BID Cetirizine Hcl (Zyrtec), 10 MG PO DAILY Clopidogrel (Plavix), 75 MG PO DAILY Cyanocobalamin (Vitamin B-12), 1,000 MCG PO DAILY Dutasteride (Avodart), 0.5 MG PO DAILY Epinephrine (Epipen), 0.3 MG IM UD Escitalopram Oxalate (Lexapro), 5 MG PO DAILY Fluticasone Prop/Salmeterol (Advair Diskus 500/50 60 Dose), 1 PUFF INH BID Furosemide (Lasix), 20 MG PO DAILY Galantamine Hydrobromide (Razadyne Ext Rel), 16 MG PO DAILY Methenamine Hippurate (Methenamine Hippurate), 1 GM PO DAILY Montelukast Sodium (Singulair), 10 MG PO DAILY Potassium Chloride (Micro-K Ext Rel), 10 MEQ PO DAILY Prednisone (Prednisone), 40 MG PO DAILY Ropinirole (Requip), 0.25 MG PO HS Sodium Chloride Hypertonic (Sodium Chloride Opthalmic), 1 DROP OPR DAILY Tiotropium [place] (Spiriva Handihaler), 1 CAP INH DAILY Current Inpatient Medications Current Inpatient Medications Medications (Trade) Dose Ordered Sig/Bob Route Start Time Stop Time Status Last Admin Dose Admin Heparin Sodium (Porcine) (Heparin Sq 5000 Unit/0.5ml) 5,000 unit Q8H SQ 05/04/18 22:00 06/03/18 21:59 Sodium Chloride 1,000 ml @ 150 mls/hr Q6H40M IV 05/04/18 20:23 06/03/18 19:27 05/04/18 21:03 150 MLS/HR Miscellaneous Information (Icu Protocol For Hyperglycemia) 1 ea PRN PRN N/A 05/04/18 19:30 05/06/18 19:29 Piperacillin Sod/ Tazobactam Sod 4.5 gm/Dextrose 120 ml @ 30 mls/hr Q8H IV 05/05/18 00:00 05/15/18 00:00 Albuterol (Ventolin Hfa Inhaler) 2 puffs Q6 INH 05/05/18 00:00 06/04/18 00:00 Cetirizine HCl (zyrTEC TAB) 10 mg DAILY PO 05/05/18 09:00 06/04/18 08:59 Clopidogrel Bisulfate (plAVix TAB) 75 mg DAILY PO 05/05/18 09:00 06/04/18 08:59 Cyanocobalamin (Vitamin B-12 Tab) 1,000 mcg DAILY PO 05/05/18 09:00 06/04/18 08:59 Escitalopram Oxalate (Lexapro Tab) 5 mg DAILY PO 05/05/18 09:00 06/04/18 08:59 Salmeterol Xinafoate/ Fluticasone (Advair Diskus 500/50 Inh) 1 puff BID INH 05/04/18 21:00 06/03/18 20:59 Galantamine Hydrobromide (Razadyne Cap) 16 mg DAILY PO 05/05/18 09:00 06/04/18 08:59 Montelukast Sodium (Singulair Tab) 10 mg DAILY PO 05/05/18 09:00 06/04/18 08:59 Potassium Chloride (Klor-Con M10) 10 meq DAILY PO 05/05/18 09:00 06/04/18 08:59 Ropinirole HCl (Requip Tab) 0.25 mg HS PO 05/04/18 21:00 06/03/18 20:59 Sodium Chloride ([place] 128 Oph Soln) 1 drops DAILY OPR 05/05/18 09:00 06/04/18 08:59 Tiotropium [place] (Spiriva Handihaler Inhaler) 1 puff DAILY INH 05/05/18 09:00 06/04/18 08:59 Miscellaneous Information (Order Awaiting Action) 1 ea QS N/A 05/05/18 00:00 06/04/18 00:00 Norepinephrine Bitartrate 8 mg/ Dextrose 508 ml @ 0 mls/hr Q0M PRN IV 05/04/18 20:15 06/03/18 20:14 05/04/18 21:07 101 MLS/HR Miscellaneous Information (Consult) 1 ea UD PRN N/A 05/04/18 20:15 06/03/18 20:14 Physical Exam Date Time Temp Pulse Resp B/P (MAP) Pulse Ox O2 Delivery O2 Flow Rate FiO2 05/04/18 20:05 36.9 70 97 105/58 97 Nasal Cannula 3.0 05/04/18 19:55 67 18 107/49 98 05/04/18 19:31 107/49 05/04/18 19:30 67 18 98 05/04/18 19:29 104/52 05/04/18 19:15 66 24 106/74 97 05/04/18 19:14 123/81 05/04/18 19:00 68 24 123/81 97 05/04/18 18:42 37.1 77 20 89/48 99 Nasal Cannula 3.0 05/04/18 18:15 71 22 104/50 100 Nasal Cannula 3.0 05/04/18 18:01 75 18 109/59 100 Nasal Cannula 4.0 05/04/18 17:50 76 20 115/66 100 Nasal Cannula 4.0 05/04/18 17:40 78 18 112/64 100 Nasal Cannula 4.0 05/04/18 17:30 75 20 108/67 100 Nasal Cannula 4.0 05/04/18 17:24 76 20 88/47 100 Nasal Cannula 4.0 05/04/18 17:10 37.3 76 20 89/46 99 Nasal Cannula 4.0 05/04/18 17:02 76 20 85/54 98 Nasal Cannula 4.0 05/04/18 16:40 75 24 62/50 100 Nasal Cannula 4.0 05/04/18 16:16 84 20 87/46 97 Nasal Cannula 4.0 05/04/18 16:00 84 22 96/48 93 Nasal Cannula 4.0 05/04/18 15:58 85 05/04/18 15:50 82 16 91/52 99 Room Air 05/04/18 15:45 100 Nasal Cannula 4.0 05/04/18 15:45 91 14 74/38 96 Nasal Cannula 4.0 05/04/18 15:39 85 18 79/44 100 Nasal Cannula 4.0 05/04/18 15:36 37.5 87 20 83/35 87 Room Air Laboratory Results Last 24 Hours Test 05/04/18 15:50 05/04/18 15:51 05/04/18 16:01 05/04/18 16:10 White Blood Count 16.34 K/uL Red Blood Count 4.08 M/uL Hemoglobin 12.9 g/dL Hematocrit 39.6 % Mean Corpuscular Volume 97.1 fL Mean Corpuscular Hemoglobin 31.6 pg Mean Corpuscular Hemoglobin Concent 32.6 g/dl Platelet Count 203 K/uL Mean Platelet Volume 10.0 fL Neutrophils (%) (Auto) 95.2 % Lymphocytes (%) (Auto) 2.9 % Monocytes (%) (Auto) 1.0 % Eosinophils (%) (Auto) 0.2 % Basophils (%) (Auto) 0.2 % Neutrophils # (Auto) 15.55 K/uL Lymphocytes # (Auto) 0.47 K/uL Monocytes # (Auto) 0.17 K/uL Eosinophils # (Auto) 0.04 K/uL Basophils # (Auto) 0.03 K/uL RDW Standard Deviation 52.7 fL RDW Coefficient of Variation 14.8 % Immature Granulocyte % (Auto) 0.5 % Immature Granulocyte # (Auto) 0.08 K/uL Erythrocyte Sedimentation Rate 39 mm/hr Prothrombin Time 11.6 SECONDS Prothromb Time International Ratio 1.1 Activated Partial Thromboplast Time 25.3 SECONDS Partial Thromboplastin Ratio 1.0 Sodium Level 140 mmol/L Potassium Level 4.1 mmol/L Chloride Level 106 mmol/L Carbon Dioxide Level 24 mmol/L Anion Gap 10.0 mmol/L Blood Urea Nitrogen 28 mg/dl Creatinine 1.69 mg/dl Est Creatinine Clear Calc Drug Dose 34.9 ml/min Estimated GFR () 41.7 Estimated GFR (Non- 36.0 BUN/Creatinine Ratio 16.3 Random Glucose 72 mg/dl Calcium Level 7.7 mg/dl Phosphorus Level 2.3 mg/dl Magnesium Level 1.6 mg/dl Total Bilirubin 0.7 mg/dl Aspartate Amino Transf (AST/SGOT) 15 U/L Alanine Aminotransferase (ALT/SGPT) 16 U/L Alkaline Phosphatase 67 U/L Total Creatine Kinase 100 U/L Creatine Kinase MB 1.2 ng/ml Creatine Kinase MB Ratio 1.2 Troponin I 0.369 ng/ml C-Reactive Protein 2.44 mg/dl Pro-B-Type Natriuretic Peptide 2487 pg/ml Total Protein 6.0 gm/dl Albumin 2.4 gm/dl Globulin 3.6 gm/dl Albumin/Globulin Ratio 0.7 Lipase 50 U/L Bedside Glucose 78 mg/dl Bedside Lactic Acid Venous 2.37 mmol/L Urine Color YELLOW Urine Appearance CLOUDY Urine pH 5.0 Urine Specific [employer] 1.012 Urine Protein NEG Urine Glucose (UA) NEG Urine Ketones NEG Urine Occult Blood 2+ Urine Nitrite POS Urine Bilirubin NEG Urine Urobilinogen NEG Urine Leukocyte Esterase LARGE Urine WBC (Auto) >30 /hpf Urine RBC (Auto) 0-4 /hpf Urine Hyaline Casts (Auto) 1-5 /lpf Urine Epithelial Cells (Auto) 0-5 /lpf Urine Bacteria (Auto) 2+ Test 05/04/18 16:47 05/04/18 19:50 Venous Blood pH 7.29 Venous Blood Partial Pressure CO2 50 mmHg Venous Blood Partial Pressure O2 35 mmHg Venous Blood HCO3 24 mmol/L Venous Blood Oxygen Saturation 61.7 % Venous Blood Base Excess -3.3 mEq/L Lactic Acid Level 2.8 mmol/L Diagnostic Results CT scan of the abdomen pelvis radiology report reviewed: IMPRESSION: 1. No evidence of bowel obstruction. No evidence of free air 2. Diverticulosis. No evidence of acute diverticulitis 3. Cholelithiasis 4. Chronic left UPJ obstruction 5. Prostamegaly with bladder wall thickening 6. Multilevel spondylitic changes within the spine 7. 31 mm infrarenal abdominal aortic aneurysm 8. Interstitial lung disease CT scan of the head, radiology report reviewed: FINDINGS: No intra or extra-axial mass lesions are visualized. There is no CT evidence of acute cortical infarction. There is no evidence of midline shift. There is no acute hemorrhage. No calvarial fractures are visualized. There are minor white matter hypodensities likely on a small vessel basis. There is no evidence of pathologic ventricular dilatation. There is mild maxillary and ethmoid sinus mucosal thickening. There is a stable subcutaneous nodule within the right occipital scalp measuring 2 cm. IMPRESSION: No acute intracranial findings Radiology report of the chest x-ray reviewed: FINDINGS: The heart is enlarged. There is mild elevation of the interstitium, likely secondary to mild congestive failure/fluid overload. A bilateral interstitial inflammatory process could appear similar There are no pleural effusions. There is no lobar consolidation.[ IMPRESSION: Cardiomegaly and elevation of the interstitium. While likely secondary to mild congestive failure, an interstitial inflammatory process could appear similar Reviewed echocardiogram results from February/2013: Normal EF without significant wall motion abnormality, diastolic dysfunction grade 1, aortic sclerosis. Review November 07, 2017 Holter monitor findings. Reviewed EKG dated May 04, 2018, normal sinus rhythm rate of 84 with premature supraventricular complexes. Normal intervals, nonspecific ST changes. Assessment & Plan Reason Critically Ill: Patient is an 87-year-old male with diagnosis of septic shock requiring vasoactive medication administration. PLAN: Neuro: Acute encephalopathy -Likely metabolic in origin secondary to sepsis and hypotension with hypoperfusion Resp: History COPD -Adequate oxygenation with supplemental nasal cannula, 3 L CV: Elevated troponin -Trend troponins -No evidence of ischemia on EKG -Continue home Plavix administration Elevated BNP -Trend serially Hypotension with hypoperfusion -Improved with Levophed, titrate to map greater than 60 Fluids/Renal: Acute kidney injury -Baseline creatinine appears to be approximately 1-1.1 -Normal saline at 150 ML's per hour Lactic acidosis -Thiamine supplementation -Continue to trend Hypomagnesemia -2 g magnesium IV Chronic UPJ obstruction Complicated urinary tract infection: Likely source ID: Severe sepsis with multisystem organ failure -Received volume expansion and ED -Continue Levophed administration -Started on Zosyn. -Reviewed previous microbiology data -January 10, 2018 previously had pansensitive E. coli. Elevated ESR: 39 -This is likely normal physiologic level given the patient's age Elevated CRP Leukocytosis -Blood cultures urine cultures pending GI/Nutrition: N.p.o. -No strong indication for PPI prophylaxis at this time Heme: Anemia -Likely baseline compared to labs of October 2013 -Heparin subcu 5000 units q. 8 for DVT prophylaxis Endocrine: ICU hyperglycemia protocol -Blood sugars within acceptable limits at this time Vascular access: Right Femoral central venous catheter placed in emergency department on May 04, 2015 Code Status: DO NOT RESUSCITATE in event of cardiac arrest as ordered by Dr. Stahl I discussed this case with the hospitalist service.
== END 2018-05-12 14:21 | DRG 871 ==
LOC: EDBD 15:30 → C.EDC 15:31 → C.MSICU 19:38 → ENRESERV 19:43 → CANBEDREQ 05-06 10:15 → ENRESERV 05-06 11:07 → C.MS4W 05-06 11:29
PROVIDERS: ADMIT Internal Medicine Sports Medicine; ATTEND Family Medicine
PROC: 06HM33Z Insertion of Infusion Device into Right Femoral Vein, Percutaneous Approach (ICD-10-PCS; principal; 2018-05-04)
PROC: 0T778DZ Dilation of Left Ureter with Intraluminal Device, Via Natural or Artificial Opening Endoscopic (ICD-10-PCS; 2018-05-05 14:50)
DX: A41.50 Gram-negative sepsis, unspecified (principal); I21.A1 Myocardial infarction type 2; R65.21 Severe sepsis with septic shock; I50.33 Acute on chronic diastolic (congestive) heart failure; J44.0 Chronic obstructive pulmonary disease with (acute) lower respiratory infection; J18.9 Pneumonia, unspecified organism; N12 Tubulo-interstitial nephritis, not specified as acute or chronic; N13.6 Pyonephrosis; N17.9 Acute kidney failure, unspecified; J44.1 Chronic obstructive pulmonary disease with (acute) exacerbation; N20.0 Calculus of kidney; R33.9 Retention of urine, unspecified; G25.81 Restless legs syndrome; R09.02 Hypoxemia; Z79.02 Long term (current) use of antithrombotics/antiplatelets; Z79.899 Other long term (current) drug therapy; Z87.891 Personal history of nicotine dependence

== ENCOUNTER → 2018-05-14 | Outpatient (CLI) | payer BC ==
[~2018-05-14] MED LIST changes: -ALBUAER2 INH; +CEFU1TAB35 PO; +DUTA0.5C PO; -DUTA1CAP17 PO; +ESCI1TAB6 PO; -FLM4 PO; +METH-1305 PO; -METR1GEL3 TOP; -NITR50CA39 PO; -PRED0.12 OPL; +ROPI0.25 PO; -SODI5OIN4 OPR; +SPRIN/30 INH; -TIOTCAP INH; +VNTHFA/IN INH; +[UNRECOGNIZED DRUG - CODE] OPR
[2018-05-14 09:10] LABS: HEMATOCRIT 38.8 % (42-52); HEMOGLOBIN 12.5 g/dL (14.0-18.0); MEAN CORPUSCULAR HEMOGLOBIN 31.3 pg (25-34); MEAN CORPUSCULAR HGB CONC 32.2 g/dl (32-36); MEAN PLATELET VOLUME 10.5 fL (7.4-10.4); PLATELET COUNT 377 K/uL (130-400); RED CELL DISTRIBUTION WIDTH CV 14.7 % (11.5-14.5); RED CELL DISTRIBUTION WIDTH SD 51.9 fL (36.4-46.3); WHITE BLOOD COUNT 9.23 K/uL (4.8-10.8)
[2018-05-14 09:15] LABS: BLOOD UREA NITROGEN 20 mg/dl (7-18); CALCIUM 8.2 mg/dl (8.5-10.1); CARBON DIOXIDE 27 mmol/L (21-32); CREATININE 0.98 mg/dl (0.60-1.40); GLUCOSE 91 mg/dl (70-99); SODIUM 142 mmol/L (136-145)
== END ==
LOC: C.LABFOXAE 08:57
PROVIDERS: ATTEND Internal Medicine
DX: J18.9 Pneumonia, unspecified organism (principal)

== ENCOUNTER → 2018-05-19 | Outpatient (CLI) | payer BC ==
[2018-05-19 09:49] LABS: HEMATOCRIT 38.7 % (42-52); HEMOGLOBIN 12.7 g/dL (14.0-18.0); MEAN CELL VOLUME 97.5 fL (80-100); MEAN CORPUSCULAR HGB CONC 32.8 g/dl (32-36); MEAN PLATELET VOLUME 9.8 fL (7.4-10.4); PLATELET COUNT 422 K/uL (130-400); RED CELL DISTRIBUTION WIDTH CV 14.8 % (11.5-14.5); RED CELL DISTRIBUTION WIDTH SD 52.8 fL (36.4-46.3); WHITE BLOOD COUNT 9.82 K/uL (4.8-10.8)
[2018-05-19 10:02] LABS: BLOOD UREA NITROGEN 20 mg/dl (7-18); CALCIUM 8.5 mg/dl (8.5-10.1); CARBON DIOXIDE 27 mmol/L (21-32); CREATININE 0.97 mg/dl (0.60-1.40); GLUCOSE 95 mg/dl (70-99); POTASSIUM 3.8 mmol/L (3.5-5.1); SODIUM 140 mmol/L (136-145)
== END ==
LOC: C.LABFOXAE 09:19
PROVIDERS: ATTEND Internal Medicine
DX: J18.9 Pneumonia, unspecified organism (principal)

== ENCOUNTER → 2018-05-23 | Outpatient (CLI) | payer BC ==
[~2018-05-23] MED LIST changes: -PRED10TA PO
== END | disposition home or self-care (01) ==
LOC: C.LABFOXMH 16:43
PROVIDERS: ATTEND Nurse Practitioner Family
DX: D72.829 Elevated white blood cell count, unspecified (principal)

== ENCOUNTER → 2018-05-23 | Outpatient (CLI) | payer BC ==
[2018-05-23 13:07] LABS: BASO % 0.4 %; BASO ABS # 0.05 K/uL (0-0.2); EOS % 2.6 %; EOS ABS # 0.35 K/uL (0-0.5); HEMATOCRIT 43.3 % (42-52); HEMOGLOBIN 14.1 g/dL (14.0-18.0); IG# 0.11 K/uL (0.00-0.02); LYMPH % 7.5 %; LYMPH ABS # 1.03 K/uL (1.2-3.4); MEAN CELL VOLUME 97.1 fL (80-100); MEAN CORPUSCULAR HEMOGLOBIN 31.6 pg (25-34); MEAN CORPUSCULAR HGB CONC 32.6 g/dl (32-36); MEAN PLATELET VOLUME 10.3 fL (7.4-10.4); MONO % 6.7 %; MONO ABS # 0.91 K/uL (0.11-0.59); PLATELET COUNT 380 K/uL (130-400); RED CELL DISTRIBUTION WIDTH CV 14.7 % (11.5-14.5); RED CELL DISTRIBUTION WIDTH SD 51.9 fL (36.4-46.3); WHITE BLOOD COUNT 13.65 K/uL (4.8-10.8)
[2018-05-23 13:30] LABS: ALBUMIN 2.8 gm/dl (3.4-5.0); ALKALINE PHOSPHATASE 71 U/L (45-117); ALT/SGPT 18 U/L (12-78); AST/SGOT 14 U/L (15-37); BLOOD UREA NITROGEN 18 mg/dl (7-18); CALCIUM 8.8 mg/dl (8.5-10.1); CARBON DIOXIDE 23 mmol/L (21-32); CREATININE 1.07 mg/dl (0.60-1.40); GLUCOSE 166 mg/dl (70-99); POTASSIUM 4.3 mmol/L (3.5-5.1); SODIUM 136 mmol/L (136-145); TOTAL PROTEIN 7.5 gm/dl (6.4-8.2)
== END ==
LOC: C.LABFOXMH 12:42
PROVIDERS: ATTEND Nurse Practitioner Family
DX: R53.83 Other fatigue (principal)

== ENCOUNTER → 2018-05-26 | Outpatient (CLI) | payer BC ==
[2018-05-26 09:59] LABS: BASO % 0.5 %; BASO ABS # 0.06 K/uL (0-0.2); EOS % 4.8 %; EOS ABS # 0.56 K/uL (0-0.5); HEMATOCRIT 39.9 % (42-52); HEMOGLOBIN 12.8 g/dL (14.0-18.0); IG# 0.11 K/uL (0.00-0.02); LYMPH % 14.2 %; LYMPH ABS # 1.65 K/uL (1.2-3.4); MEAN CELL VOLUME 98.8 fL (80-100); MEAN CORPUSCULAR HEMOGLOBIN 31.7 pg (25-34); MEAN CORPUSCULAR HGB CONC 32.1 g/dl (32-36); MONO % 8.9 %; MONO ABS # 1.03 K/uL (0.11-0.59); NEUT % 70.7 %; NEUT ABS # 8.18 K/uL (1.4-6.5); PLATELET COUNT 287 K/uL (130-400); RED CELL DISTRIBUTION WIDTH CV 14.4 % (11.5-14.5); WHITE BLOOD COUNT 11.59 K/uL (4.8-10.8)
== END | disposition home or self-care (01) ==
LOC: C.LABFOXMH 08:57
PROVIDERS: ATTEND Nurse Practitioner Family
DX: R53.83 Other fatigue (principal)

== ENCOUNTER → 2018-06-02 | Outpatient (CLI) | payer BC ==
[2018-06-02 09:32] LABS: HEMATOCRIT 38.2 % (42-52); HEMOGLOBIN 12.5 g/dL (14.0-18.0); MEAN CELL VOLUME 97.9 fL (80-100); MEAN CORPUSCULAR HEMOGLOBIN 32.1 pg (25-34); MEAN CORPUSCULAR HGB CONC 32.7 g/dl (32-36); MEAN PLATELET VOLUME 10.4 fL (7.4-10.4); PLATELET COUNT 201 K/uL (130-400); RED CELL DISTRIBUTION WIDTH CV 14.1 % (11.5-14.5); RED CELL DISTRIBUTION WIDTH SD 50.2 fL (36.4-46.3); WHITE BLOOD COUNT 8.92 K/uL (4.8-10.8)
[2018-06-02 09:45] LABS: BLOOD UREA NITROGEN 16 mg/dl (7-18); CALCIUM 8.6 mg/dl (8.5-10.1); CARBON DIOXIDE 28 mmol/L (21-32); CREATININE 1.03 mg/dl (0.60-1.40); GLUCOSE 97 mg/dl (70-99); POTASSIUM 4.6 mmol/L (3.5-5.1); SODIUM 138 mmol/L (136-145)
== END ==
LOC: C.LABFOXMH 08:24
PROVIDERS: ATTEND Internal Medicine
DX: R53.83 Other fatigue (principal)